=== PATIENT | male | born 1950 | race African-American/Black ===

== ENCOUNTER 2016-06-26 14:15 | Emergency (ER) | payer OTHER ==
--- NOTE | 2016-06-26 14:39 | ER Document Report ---
ED Medical Screen (RME) - General Stated Complaint: SORE ON LEFT LEG Mode of Arrival: Wheelchair Information source: Patient Notes: Patient with a sore to the lateral aspect of left lower leg for the past week. No injury. He shouldn't with swelling to left lower extremity. hx: Hypertension I have greeted and performed a rapid initial assessment of this patient. A comprehensive ED assessment and evaluation of the patient, analysis of test results and completion of the medical decision making process will be conducted by additional ED providers. TRAVEL OUTSIDE OF THE [place] IN LAST 30 DAYS: No - Related Data Allergies/Adverse Reactions: No Known Allergies Allergy (Verified 06/26/16 14:36) Past Medical History - Immunizations Hx Diphtheria, Pertussis, Tetanus Vaccination: Yes Physical Exam - Vital signs Vitals: Temp Pulse Resp BP Pulse Ox 98.7 F 112 H 16 171/105 H 96 06/26/16 14:23 06/26/16 14:23 06/26/16 14:23 06/26/16 14:23 06/26/16 14:23 - Skin Skin irregularity: other - Wound to the lateral aspect of left lower extremity Course - Vital Signs Vital signs: Temp Pulse Resp BP Pulse Ox 98.7 F 112 H 16 171/105 H 96 06/26/16 14:23 06/26/16 14:23 06/26/16 14:23 06/26/16 14:23 06/26/16 14:23
[2016-06-26 15:28] LABS: ABSOLUTE EOSINOPHILS # (AUTO) 0.1 10^3/uL (0.0-0.6); ABSOLUTE LYMPHOCYTES (AUTO) 1.4 10^3/uL (0.5-4.7); ABSOLUTE MONOCYTES (AUTO) 0.4 10^3/uL (0.1-1.4); ABSOLUTE NEUT (AUTO) 3.9 10^3/uL (1.7-8.2); BASOPHILS % (AUTO) 0.8 % (0-2); EOSINOPHILS % (AUTO) 1.4 % (0-6); HEMATOCRIT 40.7 % (37.9-51.0); HEMOGLOBIN 13.8 g/dL (13.5-17.0); HGB HCT DIFFERENCE 0.7; LYMPHOCYTES % (AUTO) 23.7 % (13-45); MEAN CORPUSCULAR HEMOGLOBIN 30.8 pg (27.0-33.4); MEAN CORPUSCULAR HGB CONC 33.9 g/dL (32.0-36.0); MEAN CORPUSCULAR VOLUME 91 fl (80-97); MONOCYTES % (AUTO) 6.3 % (3-13); RED BLOOD COUNT 4.47 10^6/uL (4.35-5.55); RED CELL DISTRIBUTION WIDTH 14.3 % (11.5-14.0); SEGMENTED NEUTROPHILS % (AUTO) 67.8 % (42-78); WHITE BLOOD COUNT 5.7 10^3/uL (4.0-10.5)
[2016-06-26 15:39] LABS: ALANINE AMINOTRANSFERASE 25 U/L (21-72); ALKALINE PHOSPHATASE 87 U/L (38-126); ANION GAP 10 (5-19); ASPARTATE AMINO TRANSFERASE 20 U/L (17-59); BILIRUBIN,TOTAL 0.5 mg/dL (0.2-1.3); BLOOD UREA NITROGEN 18 mg/dL (7-20); CALCIUM 9.7 mg/dL (8.4-10.2); CARBON DIOXIDE 30 mmol/L (22-30); CHLORIDE 103 mmol/L (98-107); CREATININE RESULT 1.21 mg/dL (0.52-1.25); GLUCOSE 134 mg/dL (75-110); POTASSIUM 4.3 mmol/L (3.6-5.0); SODIUM 142.8 mmol/L (137-145); TOTAL PROTEIN 7.4 g/dL (6.3-8.2)
--- NOTE | 2016-06-26 17:35 | ER Document Report ---
ED Extremity Problem, Lower - General Chief Complaint: Skin Sore(s) Stated Complaint: SORE ON LEFT LEG Mode of Arrival: Wheelchair Notes: Patient is a 65-year-old male presents emergency Department with left lower extremity open wound with associated lymphedema. Patient states that he has had swelling for over a year and is been going to [facility] for management. States that the wound on his leg does not hurt but is been there for the past 3 days. Past medical issues significant for hypertension denies diabetes Denies any past surgical history PCP is [facility] TRAVEL OUTSIDE OF THE [place] IN LAST 30 DAYS: No - Related Data Allergies/Adverse Reactions: No Known Allergies Allergy (Verified 06/26/16 14:36) Home Medications: Current Home Medications Losartan Potassium [Cozaar 100 mg Tablet] 100 mg PO DAILY 06/26/16 [History] Past Medical History - General Information source: Patient - Social History Smoking Status: Never Smoker Chew tobacco use (# tins/day): No Frequency of alcohol use: None Drug Abuse: None Family History: Reviewed & Not Pertinent Patient has suicidal ideation: No Patient has homicidal ideation: No - Past Medical History Cardiac Medical History: Reports: Hx Hypertension Renal/ Medical History: Denies: Hx Peritoneal Dialysis Surgical Hx: Negative - Immunizations Hx Diphtheria, Pertussis, Tetanus Vaccination: Yes Review of Systems - Review of Systems Constitutional: No symptoms reported EENT: No symptoms reported Cardiovascular: Edema Respiratory: No symptoms reported Gastrointestinal: No symptoms reported Genitourinary: No symptoms reported Male Genitourinary: No symptoms reported Musculoskeletal: See HPI Skin: See HPI Hematologic/Lymphatic: No symptoms reported Neurological/Psychological: No symptoms reported Physical Exam - Vital signs Vitals: Temp Pulse Resp BP Pulse Ox 98.7 F 112 H 16 171/105 H 96 06/26/16 14:23 06/26/16 14:23 06/26/16 14:23 06/26/16 14:23 06/26/16 14:23 - Respiratory Respiratory status: No respiratory distress Chest status: Nontender Breath sounds: Normal Chest palpation: Normal - Cardiovascular Rhythm: Regular Heart sounds: Normal auscultation Murmur: No Gallop: None auscultated Pulses: Normal: Radial Normal capillary refill: Yes - Extremities General upper extremity: Normal inspection, Normal strength General lower extremity: Nontender, Edema, Normal color, Normal strength, Normal temperature, Normal weight bearing. No: Link's sign Calf: Nontender Ankle: Edema. No: Deformity Foot: Nontender, Edema. No: Deformity - Neurological Neuro grossly intact: Yes Cognition: Normal Orientation: AAOx4 [place] Coma Scale Eye Opening: Spontaneous Toy Coma Scale Verbal: Oriented [place] Coma Scale Motor: Obeys Commands [place] Coma Scale Total: 15 Motor strength normal: LUE, RUE, LLE, RLE Sensory: Normal - Skin Skin Temperature: Hot Skin Moisture: Dry Skin Turgor: Edematous Location of irregularity: Extremities Notes: bilateral lower extremity 3 pitting edema with dry flaking skin. area on left calf with edematous, nontender, wound down to dermis without bleeding, approx Course - Re-evaluation Re-evalutation: 06/29/16 07:37 Patient is a 65-year-old male who is hemodynamically stable, no acute distress and afebrile. Evidence of chronic wound on left lateral calf is nontender no evidence of abscess. No evidence of gas production on x-ray. Discharge patient home on by mouth antibiotics and instructed to follow-up with her in clinic. - Vital Signs Vital signs: Temp Pulse Resp BP Pulse Ox 98.0 F 92 20 168/92 H 95 06/26/16 19:04 06/26/16 19:04 06/26/16 19:04 06/26/16 19:04 06/26/16 19:04 - Laboratory Result Diagrams: 06/26/16 15:00 06/26/16 15:00 Laboratory results interpreted by me: 06/26/16 06/26/16 15:00 15:00 RDW 14.3 H Glucose 134 H Discharge - Discharge Clinical Impression: Cellulitis Qualifiers: Site of cellulitis: extremity Site of cellulitis of extremity: lower extremity Laterality: left Qualified Code(s): L03.116 - Cellulitis of left lower limb Condition: Good Disposition: HOME, SELF-CARE Instructions: Use of Kten-Gdi-Ujlepfw Ibuprofen ([facility]) Additional Instructions: CELLULITIS: You have an infection of your skin and underlying soft tissues called cellulitis. This is due to bacteria, which can enter through any break in the skin, or even through an irritated hair follicle. Untreated, cellulitis will usually worsen. Antibiotics are required. Usually, warm packs or warm soaks, and elevation of the infected area are recommended. You should start getting better within 24 to 36 hours. Most infections respond quickly to the right medication. Follow-up care is important, however, to check for abscess (boil) formation, unsuspected foreign body, or resistant infection. If you develop fever, chills, or if the area of infection is becoming rapidly more swollen or painful, call the doctor at once. ANTIBIOTIC THERAPY: You have been given an antibiotic prescription. It's important that you take all the medication, unless instructed otherwise by your physician. Failure to complete the entire course can result in relapse of your condition. Common side effects of antibiotics include nausea, intestinal cramping, or diarrhea. Women may develop vaginal yeast infections, and babies can get yeast (thrush) in the mouth following the use of antibiotics. Contact your physician if you develop significant side effects from this medication. Allergy to this antibiotic can result in hives, wheezing, faintness, or itching. If symptoms of allergy occur, stop the medication and call the doctor. TRIMETHOPRIM-SULFA: You have been given a prescription for trimethoprim-sulfa (TMS, Septra, Bactrim). This is a combination antibiotic of the sulfa class, often used for urinary tract infections, middle ear infections, bronchitis, shigella intestinal infection, and Pneumocystis pneumonia. TMS is usually well-tolerated. Occasional side effects include nausea and decreased appetite. Septra is not recommended for infants less than two months of age. Do not take this medication if you have experienced severe side effects or allergy to sulfa medicine. You should stop this medicine at once and contact your physician if you develop any rash, joint pain, shortness of breath, bruising, or jaundice ( yellow color in the skin), or if you develop any other new or unusual symptoms. FOLLOW-UP CARE: If you have been referred to a physician for follow-up care, call the physician s office for an appointment as you were instructed or within the next two days. If you experience worsening or a significant change in your symptoms, notify the physician immediately or return to the Emergency Department at any time for re-evaluation. Please call the wound clinic based out of the hospital to book an appointment for this week [phone] Prescriptions: Sulfamethoxazole/Trimethoprim [Bactrim Ds Tablet] 1 each PO BID 10 Days Forms: Elevated Blood Pressure
[2016-06-26 19:14] VITALS: BP 168/92
== END 2016-06-26 19:14 | disposition home or self-care (01) ==
LOC: ER 14:15
DX: L97.221 Non-pressure chronic ulcer of left calf limited to breakdown of skin (principal); L03.116 Cellulitis of left lower limb; I89.0 Lymphedema, not elsewhere classified; I10 Essential (primary) hypertension
CPT/HCPCS: 36415; 80053; 83880; 85025; 87040; 87070; 87077; 87186; 87205; 99283

== ENCOUNTER → 2016-06-27 | Outpatient (CLI) | payer OTHER ==
--- NOTE | 2016-06-27 18:53 | XCELERA REPORT ---
[address] [address] Lower Extremity Venous Evaluation Name: ELISA VIDAL Age: 65 yrs Gender: Male : 1950 Patient Status: Outpatient Patient Location: Study Date: 06/27/2016 02:10 PM Procedure: Color flow and duplex imaging of the veins of the left lower extremity as well as the right Common Femoral vein. Reason For Study: LLE EDEMA Ordering Physician: MARIA INES MENDOZA Performed By: Andrez Baez Right Sided Venous Evaluation The right common femoral vein is fully compressible. Spontaneous and phasic flow is present in the right common femoral vein. Left Sided Venous Evaluation Normal vessel filling wall to wall, compression and augmentation as well as Colour flow down to the infrageniculate veins. Critical Findings [facility] to [facility]. Interpretation Summary No duplex evidence of DVT or obstruction in the left lower extremity nor in the right Common Femoral vein. : MARIA INES MENDOZA > Akash Booker
== END ==
LOC: SP 14:01
PROVIDERS: ATTEND Internal Medicine
DX: R60.0 Localized edema (principal)
CPT/HCPCS: 93971

== ENCOUNTER 2017-03-24 11:15 | Inpatient (IN) | payer MEDICARE, OTHER ==
[2017-03-24 12:13] LABS: ABSOLUTE LYMPHOCYTES (AUTO) 1.1 10^3/uL (0.5-4.7); ABSOLUTE MONOCYTES (AUTO) 0.4 10^3/uL (0.1-1.4); ABSOLUTE NEUT (AUTO) 2.7 10^3/uL (1.7-8.2); BASOPHILS % (AUTO) 0.6 % (0-2); EOSINOPHILS % (AUTO) 0.6 % (0-6); HEMOGLOBIN 13.7 g/dL (13.5-17.0); HGB HCT DIFFERENCE 1.1; LYMPHOCYTES % (AUTO) 25.1 % (13-45); MEAN CORPUSCULAR HEMOGLOBIN 31.4 pg (27.0-33.4); MEAN CORPUSCULAR HGB CONC 34.3 g/dL (32.0-36.0); MEAN CORPUSCULAR VOLUME 92 fl (80-97); MONOCYTES % (AUTO) 8.4 % (3-13); PROTHROMBIN TIME 14.2 SEC (11.4-15.4); RED BLOOD COUNT 4.37 10^6/uL (4.35-5.55); RED CELL DISTRIBUTION WIDTH 14.1 % (11.5-14.0); SEGMENTED NEUTROPHILS % (AUTO) 65.3 % (42-78); WHITE BLOOD COUNT 4.2 10^3/uL (4.0-10.5)
[2017-03-24 12:14] LABS: PARTIAL THROMBOPLASTIN TIME 29.7 SEC (23.5-35.8)
[2017-03-24 12:17] LABS: APPEARANCE,URINE CLEAR; BILIRUBIN,URINE NEGATIVE (NEGATIVE); GLUCOSE, URINE NEGATIVE (NEGATIVE); KETONES,URINE 20 mg/dL (NEGATIVE); LEUKOCYTE ESTERASE,URINE NEGATIVE (NEGATIVE); NITRITE,URINE NEGATIVE (NEGATIVE); PROTEIN,URINE 30 mg/dL (NEGATIVE); URINE SPECIFIC GRAVITY 1.027; UROBILINOGEN,URINE NEGATIVE mg/dL (<2.0)
--- NOTE | 2017-03-24 12:23 | RADIOLOGY REPORT (SQ) ---
EXAM DESCRIPTION: HIP BILATERAL COMPLETED DATE/TIME: 03/24/2017 12:13 pm REASON FOR STUDY: cannot bend left hip, asymmetric, ?dislocation COMPARISON: None. NUMBER OF VIEWS: Two views. TECHNIQUE: AP pelvis and additional frog-leg view of both hips. LIMITATIONS: None. FINDINGS: MINERALIZATION: Normal. RIGHT HIP: No fracture or dislocation. No worrisome bone lesions. LEFT HIP: Severe degenerative changes with joint space loss and extensive sclerosis and hypertrophic changes. Difficult to assess for acute findings. PUBIS AND ISCHIUM: No fracture. PELVIS: No fracture. SACRUM: No fracture or dislocation. No worrisome bone lesions. LOWER LUMBAR SPINE: No fracture or dislocation. No worrisome bone lesions. No significant disc disea se. SOFT TISSUES: No findings. OTHER: No other significant finding. IMPRESSION: SEVERE DEGENERATIVE CHANGES IN THE LEFT HIP. DIFFICULT TO ASSESS FOR ACUTE FINDINGS. N O OTHER SIGNIFICANT FINDINGS. TECHNICAL DOCUMENTATION: JOB ID: [id number] [employer]- All Rights Reserved
[2017-03-24 12:29] LABS: ALANINE AMINOTRANSFERASE 32 U/L (21-72); ALBUMIN 4.2 g/dL (3.5-5.0); ALKALINE PHOSPHATASE 77 U/L (38-126); ANION GAP 13 (5-19); ASPARTATE AMINO TRANSFERASE 21 U/L (17-59); BILIRUBIN,DIRECT 0.5 mg/dL (0.0-0.4); BILIRUBIN,TOTAL 0.9 mg/dL (0.2-1.3); BLOOD UREA NITROGEN 22 mg/dL (7-20); CALCIUM 9.2 mg/dL (8.4-10.2); CARBON DIOXIDE 29 mmol/L (22-30); CHLORIDE 105 mmol/L (98-107); CREATININE RESULT 1.22 mg/dL (0.52-1.25); GLUCOSE 96 mg/dL (75-110); POTASSIUM 3.9 mmol/L (3.6-5.0); SODIUM 146.6 mmol/L (137-145); TOTAL PROTEIN 7.1 g/dL (6.3-8.2)
--- NOTE | 2017-03-24 12:40 | ER Document Report ---
ED General - General Mode of Arrival: Ambulatory Information source: Patient TRAVEL OUTSIDE OF THE [place] IN LAST 30 DAYS: No - HPI Onset: Yesterday <PHILLIP PUGA - Last Filed: 03/24/17 18:32> <RON GIL - Last Filed: 03/24/17 18:36> - General Chief Complaint: Weakness Stated Complaint: WEAKNESS Time Seen by Provider: 03/24/17 11:19 Notes: Patient is a 66 year old male with a extensive history of left leg issues presents to the emergency department via EMS complaining of sudden onset immobility last night after sitting in a chair watching TV. Patient states that he was unable to stand up from the chair and unable to bend at the waist. Patient denies any fall or injury. Patient states that he also has no pain. Patient normally walks with a walker due to his left leg being shorter and skinnier than his right. (PHILLIP PUGA) - Related Data Allergies/Adverse Reactions: No Known Allergies Allergy (Verified 06/26/16 14:36) Home Medications: Current Home Medications Furosemide [Lasix 20 mg Tablet] 20 mg PO QAM 03/24/17 [History] Losartan Potassium [Cozaar 100 mg Tablet] 100 mg PO DAILY 03/24/17 [History] Past Medical History - General Information source: Patient, Emergency Med Personnel - Social History Smoking Status: Never Smoker Chew tobacco use (# tins/day): No Frequency of alcohol use: None Drug Abuse: None Family History: Reviewed & Not Pertinent Patient has suicidal ideation: No Patient has homicidal ideation: No - Past Medical History Cardiac Medical History: Reports: Hx Hypertension - no meds - Immunizations Hx Diphtheria, Pertussis, Tetanus Vaccination: Yes <PHILLIP PUGA - Last Filed: 03/24/17 18:32> Review of Systems - Review of Systems Constitutional: No symptoms reported EENT: No symptoms reported Cardiovascular: No symptoms reported Respiratory: No symptoms reported Gastrointestinal: No symptoms reported Genitourinary: No symptoms reported Male Genitourinary: No symptoms reported Musculoskeletal: Muscle stiffness - immbobility at the hips Skin: No symptoms reported Hematologic/Lymphatic: No symptoms reported Neurological/Psychological: No symptoms reported -: Yes All other systems reviewed and negative <PHILLIP PUGA - Last Filed: 03/24/17 18:32> Physical Exam <PHILLIP PUGA - Last Filed: 03/24/17 18:32> <RON GIL - Last Filed: 03/24/17 18:36> - Vital signs Vitals: Temp Pulse Resp BP Pulse Ox 98.7 F 98 18 197/106 H 100 03/24/17 11:21 03/24/17 11:21 03/24/17 11:21 03/24/17 11:21 03/24/17 11:21 - Notes Notes: GENERAL: Alert, interacts well. No acute distress. HEAD: Normocephalic, atraumatic. EYES: Pupils equal, round, and reactive to light. Extraocular movements intact. ENT: Oral mucosa moist, tongue midline. NECK: Full range of motion. Supple. Trachea midline. LUNGS: Clear to auscultation bilaterally, no wheezes, rales, or rhonchi. No respiratory distress. HEART: Regular rate and rhythm. No murmurs, gallops, or rubs. ABDOMEN: Soft, non-tender. Non-distended. Bowel sounds present in all 4 quadrants. EXTREMITIES: Restricted ROM at left hip, not at right, can not passively flex hip more than 30 degrees. Left greater trochanter more prominent than right. No edema, radial and dorsalis pedis pulses 2/4 bilaterally. No cyanosis. Intact capillary refill. Left leg atrophy. Toenails hypertrophic. NEUROLOGICAL: Alert and oriented x3. Speech difficult to understand but normal baseline for relatives. Biceps and patellar DTRs 2+ bilaterally. Pulses and sensations intact. PSYCH: Normal affect, normal mood. SKIN: Warm, dry, normal turgor. No rashes or lesions noted. BACK: Lumbar and thoracic able to flex without difficulty. (PHILLIP PUGA) Course - Laboratory Result Diagrams: 03/24/17 11:52 03/24/17 11:52 <PHILLIP PUGA - Last Filed: 03/24/17 18:32> - Laboratory Result Diagrams: 03/24/17 11:52 03/24/17 11:52 <RON GIL - Last Filed: 03/24/17 18:36> - Re-evaluation Re-evalutation: 03/24/17 14:50 CBC unremarkable, INR slightly prolonged at 1.03, CMP grossly unremarkable, urinalysis shows 30 of protein and 20 of ketones, otherwise unremarkable, hip x- ray shows severe degenerative changes and the radiologist is unable to fully rule out any acute process, lower extremity CT of the left hip reveals severe degenerative changes no acute fracture visualized. I did discuss this case with Dr. Renner, states that it is possible to have an close joint or arthritis that is so severe that the patient can no longer move his left hip. Discussed that the treatment for this is a hip replacement, Dr. Renner has agreed to admit this patient to the orthopedic service and recommends consulting the hospitalist for medical clearance. I did attempt to call the hospitalist at this time however they were not available to communicate the consult to them. Discussed with family and patient and they are both agreeable to admission for possible hip replacement. 03/24/17 14:55 I did communicate this consult to Dr. Comer who directed me to give it to krishna the nurse practitioner. (RON GIL) - Vital Signs Vital signs: Temp Pulse Resp BP Pulse Ox 98.2 F 98 18 150/108 H 100 03/24/17 16:10 03/24/17 16:10 03/24/17 16:10 03/24/17 16:10 03/24/17 16:10 - Laboratory Laboratory results interpreted by me: 03/24/17 03/24/17 03/24/17 11:52 11:52 12:00 RDW 14.1 H Sodium 146.6 H BUN 22 H Direct Bilirubin 0.5 H Urine Protein 30 H Urine Ketones 20 H - EKG Interpretation by Me Additional EKG results interpreted by me: 03/24/17 14:55 EKG shows sinus rhythm at a rate of 93, several PACs, left axis deviation, no ST segment elevations or depressions, T-wave inversions in 1 and aVL per my interpretation. (RON GIL) Discharge <PHILLIP PUGA - Last Filed: 03/24/17 18:32> - Discharge Admitting Provider: Surgicalist - Jud Unit Admitted: Surgical Floor <RON GIL - Last Filed: 03/24/17 18:36> - Discharge Clinical Impression: Inability to ambulate due to left hip, Benign essential hypertension Condition: Stable Disposition: ADMITTED INPATIENT Scribe Attestation: 03/24/17 18:36 I personally performed the services described in the documentation, reviewed and edited the documentation which was dictated to the scribe in my presence, and it accurately records my words and actions. (RON GIL) Scribe Documentation - Scribe Written by Darren:: Darren Galan, 03/24/2017 13:01 acting as scribe for :: Abran <PHILLIP PUGA - Last Filed: 03/24/17 18:32>
--- NOTE | 2017-03-24 13:48 | RADIOLOGY REPORT (SQ) ---
EXAM DESCRIPTION: CT LT LOWER EXTREMITY WITHOUT COMPLETED DATE/TIME: 03/24/2017 1:38 pm REASON FOR STUDY: cannot move left hip, ?fx COMPARISON: None. TECHNIQUE: CT scan of the left hip performed without intravenous or oral contrast. Images reviewed with soft tissue and bone windows. Reconstructed coronal and sagittal MPR images reviewed. All imag es stored on PACS. All CT scanners at this facility use dose modulation, iterative reconstruction, and/or weight based d osing when appropriate to reduce radiation dose to as low as reasonably achievable (ALARA). [facility]: Dose Right [facility]: CareDose [facility]: Dose Right [facility]: Teradose 4D [facility]: Smart Microinox RADIATION DOSE: Up-to-date CT equipment and radiation dose reduction techniques were employed. CTDIv ol: 11.8 mGy. DLP: 466 mGy-cm. mGy. LIMITATIONS: None. FINDINGS: PELVIC BONES: No acute fracture. No worrisome bone lesions. VISUALIZED SPINE: No acute findings. HIP: Severe degenerative changes. Marked joint space loss with extensive sclerosis and extensive ost eophytes. Extensive cystic changes. Marked deformity of the femoral head and neck. No cortical dis continuity. PELVIC SOFT TISSUES: No significant findings. EXTRAPELVIC SOFT TISSUES: No significant findings. OTHER: No other significant finding. IMPRESSION: SEVERE DEGENERATIVE CHANGES OF THE LEFT HIP. NO ACUTE FRACTURE VISUALIZED. TECHNICAL DOCUMENTATION: JOB ID: [id number] Quality ID # [id number]: Final reports with documentation of one or more dose reduction techniques (e.g., Au tomated exposure control, adjustment of the mA and/or kV according to patient size, use of iterative reconstruction technique) 2010 [employer]- All Rights Reserved
[2017-03-24] MEDS ORDERED: DEXTROSE 40% GEL 15 GM TUBE PO PRN ×2 (16:54)
[2017-03-24] MEDS ORDERED: GLUCAGON,HUMAN RECOMB 1 MG INJ SUBCUT PRN (16:54)
[2017-03-24] MEDS ORDERED: DEXTROSE 50%-WATER 25 GM/50 ML DISP.SYRIN IV PRN ×2 (16:54)
[2017-03-24] MEDS ORDERED: INFLUENZA ADLT QUAD (36MOS+) 2017-18 VAC 0.5 ML SYR IM PRN (17:10)
--- NOTE | 2017-03-24 17:26 | PDOC CONSULTATION ---
Consultation Consult Date: 03/24/17 Attending physician:: NOBLE DUKE History of Present Illness Admission Date/PCP: 03/24/17 15:03 patient seen he was admitted from the ER by Dr. Renner due to inability to move and ambulate on his left leg. Patient is accompanied by his daughter who states patient was doing fine yesterday and he has been having issues with his leg for a long time but yesterday he was unable to move and ambulate so he came to the emergency room today. Apparently patient's baseline he has slurred speech and significant amount of weakness and he walks with a walker. Patient states his right hip just froze up on him all of a sudden he is unable to walk. Patient states he has had some numbness and tingling down his left arm and and right hip and has chronic arthritis. We were asked to see the patient for preop clearance and medical management. Upon my assessment patient gave me 2 bottles of medication both were which were losartan and furosemide. Suspect patient has medical noncompliance as stated by patient' s daughter. Patient denies having a primary care physician. Patient complains of: right hip pain History of Present Illness: ELISA VIDAL is a 66 year old male patient seen he was admitted from the ER by Dr. Renner due to inability to move and ambulate on his left leg. Patient is accompanied by his daughter who states patient was doing fine yesterday and he has been having issues with his leg for a long time but yesterday he was unable to move and ambulate so he came to the emergency room today. Apparently patient's baseline he has slurred speech and significant amount of weakness and he walks with a walker. Patient states his right hip just froze up on him all of a sudden he is unable to walk. Patient states he has had some numbness and tingling down his left arm and and right hip and has chronic arthritis. We were asked to see the patient for preop clearance and medical management. Upon my assessment patient gave me 2 bottles of medication both were which were losartan and furosemide. Suspect patient has medical noncompliance as stated by patient's daughter. Patient denies having a primary care physician or has an outpatient orthopedic physician. Per patient's medical records he has had a history of nonhealing wound. No evidence of open wound during his physical assessment today. Past Medical History Cardiac Medical History: Reports: Congestive Heart Failure - Patient denies but he has a Rx for Lasix, Hypertension - has meds for Losartan and Lasix both bottles . Musculoskeletal History Note: right hip pain unable to move. Was getting up with walker independently at home. Social History Smoking Status: Never Smoker Family History Family History: Reviewed & Not Pertinent Parental Family History Reviewed: Yes Children Family History Reviewed: No Sibling(s) Family History Reviewed.: No Medication/Allergy Home Medications: Furosemide [Lasix 20 mg Tablet] 20 mg PO QAM 03/24/17 Losartan Potassium [Cozaar 100 mg Tablet] 100 mg PO DAILY 03/24/17 Allergies/Adverse Reactions: No Known Allergies Allergy (Verified 06/26/16 14:36) Review of Systems Constitutional: ABSENT: chills, fever(s), headache(s), weight gain, weight loss Eyes: ABSENT: visual disturbances Ears: ABSENT: hearing changes Cardiovascular: ABSENT: chest pain, dyspnea on exertion, edema, orthropnea, palpitations Respiratory: ABSENT: cough, hemoptysis Gastrointestinal: ABSENT: abdominal pain, constipation, diarrhea, hematemesis, hematochezia, nausea, vomiting Genitourinary: ABSENT: dysuria, hematuria Musculoskeletal: PRESENT: as per HPI Integumentary: ABSENT: rash, wounds Neurological: ABSENT: abnormal gait, abnormal speech, confusion, dizziness, focal weakness, syncope Psychiatric: ABSENT: anxiety, depression, homidical ideation, suicidal ideation Endocrine: ABSENT: cold intolerance, heat intolerance, polydipsia, polyuria Hematologic/Lymphatic: ABSENT: easy bleeding, easy bruising Physical Exam Vital Signs: Temp Pulse Resp BP Pulse Ox 98.7 F 98 19 177/94 H 99 03/24/17 11:21 03/24/17 11:21 03/24/17 15:30 03/24/17 15:30 03/24/17 15:30 General appearance: PRESENT: no acute distress, well-developed, well-nourished Head exam: PRESENT: atraumatic, normocephalic Eye exam: PRESENT: conjunctiva pink, EOMI, PERRLA. ABSENT: scleral icterus Ear exam: PRESENT: normal external ear exam Mouth exam: PRESENT: moist, tongue midline Neck exam: ABSENT: carotid bruit, JVD, lymphadenopathy, thyromegaly Respiratory exam: PRESENT: clear to auscultation ketty. ABSENT: rales, rhonchi, wheezes Cardiovascular exam: PRESENT: RRR. ABSENT: diastolic murmur, rubs, systolic murmur Pulses: PRESENT: normal dorsalis pedis pul, other - Very faint pedal pulses Vascular exam: PRESENT: normal capillary refill GI/Abdominal exam: PRESENT: normal bowel sounds, soft. ABSENT: distended, guarding, mass, organolmegaly, rebound, tenderness Rectal exam: PRESENT: deferred Extremities exam: PRESENT: full ROM. ABSENT: calf tenderness, clubbing, pedal edema Musculoskeletal exam: ABSENT: ambulatory, deformity, dislocation, full ROM, normal inspection Neurological exam: PRESENT: alert, awake, oriented to person, oriented to place , oriented to time, CN II-XII grossly intact, other - slurred speech. ABSENT: oriented to situation, motor sensory deficit Psychiatric exam: PRESENT: appropriate affect, normal mood. ABSENT: homicidal ideation, suicidal ideation Skin exam: PRESENT: dry, intact, warm. ABSENT: cyanosis, rash Results Impressions: Hip X-Ray 03/24/17 11:27 IMPRESSION: SEVERE DEGENERATIVE CHANGES IN THE LEFT HIP. DIFFICULT TO ASSESS FOR ACUTE FINDINGS. NO OTHER SIGNIFICANT FINDINGS. Lower Extremity CT 03/24/17 12:38 IMPRESSION: SEVERE DEGENERATIVE CHANGES OF THE LEFT HIP. NO ACUTE FRACTURE VISUALIZED. Assessment & Plan - Diagnosis (1) Benign essential hypertension Plan: Patient was seen blood pressure was 180/88 suspect medical noncompliance with blood pressure medication. Seems to be a high risk stratification for acute CVA. So will go ahead and obtain a head CT to rule out an acute CVA. (2) CHF (congestive heart failure) Qualifiers: Congestive heart failure type: unspecified congestive heart failure type Is this a current diagnosis for this admission?: Yes Plan: Suspect patient has history of CHF due to patient's old medical records and chart however patient's not been very compliant with medication. Denies any shortness of breath dyspnea with exertion (3) Non compliance with medical treatment Is this a current diagnosis for this admission?: Yes Plan: Suspect medical noncompliance due to patient has 2 prescriptions losartan and furosemide both bottles were out of date. Daughter states he does not have a primary care physician and does not go to the doctor regular that is the reason why he is here now. (4) Pre-operative clearance Is this a current diagnosis for this admission?: Yes Plan: Suspect patient may have high risk stratification for surgery at this time due to suspected medical noncompliance adherence with treatment and outpatient care. Will obtain a 2D echo, troponins, hemoglobin A1c, head CT rule out acute CVA due to his dysphasia sudden inability to ambulate. Patient seems quite comfortable not having any medications. Only pain medication she takes at home or BC powders for his chronic arthritis. In my opinion suspect patient has not failed outpatient therapy for his rheumatoid arthritis due to not on any pain medications but he does have significant degenerative joint changes indicative of needing a hip replacement. Unsure if patient's received any kind of therapy outpatient. Will obtain cardiology and pulmonology consult for clearance preop as well.
[2017-03-24 17:33] LABS: CHOLESTEROL 148.73 mg/dL (0-200); CREATINE KINASE 224 U/L (55-170); Direct HDL 50 mg/dL (>40); TRIGLYCERIDES 52 mg/dL (<150)
[2017-03-24 17:44] LABS: DIRECT LDL 84 mg/dL (<100)
[2017-03-24 18:00] LABS: CREATINE KINASE MB 2.59 ng/mL (<4.55)
[2017-03-24 18:02] LABS: TROPONIN I < 0.012 ng/mL
--- NOTE | 2017-03-24 18:02 | RADIOLOGY REPORT (SQ) ---
EXAM DESCRIPTION: CT HEAD WITHOUT COMPLETED DATE/TIME: 03/24/2017 5:32 pm REASON FOR STUDY: r/o cva COMPARISON: None. TECHNIQUE: Axial images acquired through the brain without intravenous contrast. Images reviewed wi th bone, brain and subdural windows. Images stored on PACS. All CT scanners at this facility use dose modulation, iterative reconstruction, and/or weight based d osing when appropriate to reduce radiation dose to as low as reasonably achievable (ALARA). [facility]: Dose Right [facility]: CareDose [facility]: Dose Right [facility]: Teradose 4D [facility]: Smart Let[place]ano RADIATION DOSE: Up-to-date CT equipment and radiation dose reduction techniques were employed. CTDIv ol: 49.0 mGy. DLP: 881 mGy-cm. mGy. LIMITATIONS: None. FINDINGS: VENTRICLES: Prominent. CEREBRUM: No masses. No hemorrhage. No midline shift. Areas of low density in the white matter mos t likely due to chronic micro-vascular ischemic change. No evidence for acute infarction. CEREBELLUM: No masses. No hemorrhage. No alteration of density. No evidence for acute infarction. EXTRAAXIAL SPACES: Mild age-related involutional change. No fluid collections. No masses. ORBITS AND GLOBE: No intra- or extraconal masses. Normal contour of globe without masses. CALVARIUM: No fracture. PARANASAL SINUSES: No fluid or mucosal thickening. SOFT TISSUES: No mass or hematoma. OTHER: No other significant finding. IMPRESSION: MILD CHRONIC CHANGES OF ATROPHY AND MICROVASCULAR ISCHEMIA. NO ACUTE PROCESS. EVIDENCE OF ACUTE STROKE: NO. TECHNICAL DOCUMENTATION: JOB ID: [id number] Quality ID # [id number]: Final reports with documentation of one or more dose reduction techniques (e.g., Au tomated exposure control, adjustment of the mA and/or kV according to patient size, use of iterative reconstruction technique) 2010 [employer]- All Rights Reserved
--- NOTE | 2017-03-24 19:37 | PDOC CONSULTATION ---
Consultation Consult Date: 03/24/17 Attending physician:: JAMAAL NEVAREZ Consult reason:: Preop evaluation History of Present Illness Admission Date/PCP: 03/24/17 15:03 Patient complains of: Ambulatory dysfunction History of Present Illness: ELISA VIDAL is a 66 year old male patient seen he was admitted from the ER by Dr. Renner due to inability to move and ambulate on his left leg. Patient is accompanied by his daughter who states patient was doing fine yesterday and he has been having issues with his leg for a long time but yesterday he was unable to move and ambulate so he came to the emergency room today. Apparently patient's baseline he has slurred speech and significant amount of weakness and he walks with a walker. Patient states his right hip just froze up on him all of a sudden he is unable to walk. Patient states he has had some numbness and tingling down his left arm and and right hip and has chronic arthritis. We were asked to see the patient for preop clearance and medical management. Upon my assessment patient gave me 2 bottles of medication both were which were losartan and furosemide. Suspect patient has medical noncompliance as stated by patient's daughter. Patient denies having a primary care physician or has an outpatient orthopedic physician. Per patient's medical records he has had a history of nonhealing wound. No evidence of open wound during his physical assessment today. Patient was interviewed. He denied having any chest pain or any significant shortness of breath. Nurses report to me that the daughter was in and informed them that he was able to walk up and down the stairs until recently, just about 2 days ago. He denied any previous history of myocardial infarction or any other heart problems Past Medical History Cardiac Medical History: Reports: Congestive Heart Failure - Patient denies but he has a Rx for Lasix, Hypertension - no meds Social History Information Source: Patient Smoking Status: Never Smoker Drugs: None - Advance Directive Resuscitation Status: Full Code Surrogate healthcare decision maker:: Patient's daughter is the surrogate decision-maker Family History Family History: Reviewed & Not Pertinent Parental Family History Reviewed: Yes Children Family History Reviewed: Yes Sibling(s) Family History Reviewed.: Yes Medication/Allergy Home Medications: Furosemide [Lasix 20 mg Tablet] 20 mg PO QAM 03/24/17 Losartan Potassium [Cozaar 100 mg Tablet] 100 mg PO DAILY 03/24/17 Allergies/Adverse Reactions: No Known Allergies Allergy (Verified 06/26/16 14:36) Review of Systems Review of Systems: Please see history of present illness and past medical history as wall. Constitutional: No fever or chills reported. Head : No recent chronic headaches, recent head injury. Eyes: No recent eye pain, diplopia, redness, discharge, acute visual changes. Ears: No recent chronic ear pain, acute hearing loss, ear discharge. Oral cavity: No recent ulcerations, bleeding, oral cavity discomfort. Neck: No recent acute neck pain reported. Hematologic: No recent easy bruising or bleeding or hematologic malignancy reported. Lymphatic: No recent lymphatic malignancy, chronic lymphadenopathy reported yet Cardiovascular system review: See history of present illness. Respiratory system review: No recent chronic cough, hemoptysis, blood clots in the lungs reported. Gastrointestinal system review: Negative for any recent acute or chronic abdominal pain, hematemesis, melena, recent change in bowel habits. Genitourinary system review: No recent acute or chronic hematuria, flank pain, UTI etc. reported. Skin system review: Negative for any recent abnormal bruising, no rash, no pruritus reported. Neurologic: No prior history of strokes, mini strokes, seizure disorder. Psychologic: No history of major psychosis or major depression reported. Musculoskeletal: Minor aches and pains reported. No acute joint swelling reported. Ambulatory dysfunction as noted in HPI. Endocrine: No recent polyuria, polydipsia, recent heat or cold intolerance. Physical Exam Vital Signs: Temp Pulse Resp BP Pulse Ox 98.2 F 98 18 150/108 H 100 03/24/17 16:10 03/24/17 16:10 03/24/17 16:10 03/24/17 16:10 03/24/17 16:10 Exam: GENERAL: well-nourished and in no acute distress. Alert and oriented x3 HEAD: Atraumatic, normocephalic. EYES: Pupils equal round and reactive to light, extraocular movements intact, sclera anicteric, conjunctiva are normal. ENT: TMs normal, nares patent, oropharynx clear without exudates. Moist mucous membranes. No oral ulcerations or bleeding gums noted NECK: supple without lymphadenopathy. Trachea is central. No cervical or axillary lymphadenopathy noted. Carotids are 2+, JVD WNL LUNGS: Respiration seems nonlabored, no significant accessory muscle action noted. Breath sounds clear to auscultation bilaterally and equal noted. No wheezes rales or rhonchi noted. No significant dullness noted on percussion. CHEST: Palpation of the chest wall shows no significant chest wall tenderness. No other significant abnormalities noted. 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 ABDOMEN: Soft, no significant tenderness appreciated, normoactive bowel sounds. No guarding, no rebound. No rigidity noted . No masses appreciated. EXTREMITIES: Pedal pulses are 1-2+, no calf tenderness noted. No clubbing or cyanosis.trace to 1+ pedal edema noted NEUROLOGICAL: Focused neurological exam showed no significant neurologic deficit. His speech is slurred and somewhat garbled, mild upper right extremity weakness appreciated. PSYCH: Normal mood, normal affect. Judgment and insight could not be checked because of limited verbal communication. SKIN: No significant ecchymosis, rash, ulcerations or signs of pruritus noted. MUSCULOSKELETAL EXAM: No significant joint swelling noted. Patient noted to have some difficulty with mobility of the left lower extremity Results Laboratory Results: 03/24/17 16:55 Triglycerides 52 Cholesterol 148.73 LDL Cholesterol Direct 84 VLDL Cholesterol 10.0 HDL Cholesterol 50 03/24/17 03/24/17 16:55 16:55 Creatine Kinase 224 H CK-MB (CK-2) 2.59 Troponin I < 0.012 EKG Comments: Sinus rhythm with APCs but no acute ST-T wave changes Impressions: Head CT 03/24/17 00:00 IMPRESSION: MILD CHRONIC CHANGES OF ATROPHY AND MICROVASCULAR ISCHEMIA. NO ACUTE PROCESS. EVIDENCE OF ACUTE STROKE: NO. Hip X-Ray 03/24/17 11:27 IMPRESSION: SEVERE DEGENERATIVE CHANGES IN THE LEFT HIP. DIFFICULT TO ASSESS FOR ACUTE FINDINGS. NO OTHER SIGNIFICANT FINDINGS. Lower Extremity CT 03/24/17 12:38 IMPRESSION: SEVERE DEGENERATIVE CHANGES OF THE LEFT HIP. NO ACUTE FRACTURE VISUALIZED. Assessment & Plan - Diagnosis (1) Pre-operative clearance Is this a current diagnosis for this admission?: Yes (2) Benign essential hypertension Is this a current diagnosis for this admission?: Yes (3) CHF (congestive heart failure) Qualifiers: Congestive heart failure type: unspecified congestive heart failure type Congestive heart failure chronicity: chronic Qualified Code(s): I50.9 - Heart failure, unspecified Is this a current diagnosis for this admission?: No (4) Inability to ambulate due to left hip Is this a current diagnosis for this admission?: Yes (5) Non compliance with medical treatment Is this a current diagnosis for this admission?: Yes - Notes Notes: Preop cardiac clearance: Patient seems comfortable. There is no history of chest pain. No significant shortness of breath reported. Patient in sinus rhythm, no clinical CHF but will obtain a chest x-ray. Patient cleared for proposed surgery with average risk for his age. Hypertension: Recommend good control of blood pressure and restarting his on home antihypertensives. CHF: Does not seem to be a problem. There is questionable history of this. Have obtained a chest x-ray. Will order a echocardiogram in the morning. Inability to ambulate.: Patient has significant osteoarthritis of the left hip. Possibly would benefit from hip replacement but will leave this decision to orthopedic surgeon. Medical noncompliance: Patient may need to see capacity planner for him to get some home health etc. - Time Time Spent: 30 to 50 Minutes - More than 50% of the time spent coordinating care , discussing management plans with involved caregivers. Management plans discussed with involved personnels. Medical decision making was of moderate to high complexity, patient's has multiple comorbidities. Medications reviewed and adjusted accordingly: Yes
--- NOTE | 2017-03-24 20:15 | RADIOLOGY REPORT (SQ) ---
EXAM DESCRIPTION: CHEST SINGLE VIEW COMPLETED DATE/TIME: 03/24/2017 8:04 pm REASON FOR STUDY: Preop, history of CHF COMPARISON: Chest x-ray dated January 2016 EXAM PARAMETERS: NUMBER OF VIEWS: One view. TECHNIQUE: Single frontal radiographic view of the chest acquired. RADIATION DOSE: NA LIMITATIONS: None. FINDINGS: LUNGS AND PLEURA: No opacities, masses or pneumothorax. No pleural effusion. MEDIASTINUM AND HILAR STRUCTURES: No masses. Contour normal. HEART AND VASCULAR STRUCTURES: The configuration of the heart mediastinal structures is unchanged BONES: No acute findings. HARDWARE: None in the chest. OTHER: No other significant finding. IMPRESSION: NO ACUTE RADIOGRAPHIC FINDING IN THE CHEST. TECHNICAL DOCUMENTATION: JOB ID: [id number] [employer]- All Rights Reserved
[2017-03-24] MEDS: RIVAROXABAN 10 MG TABLET PO SCH (21:09)
--- NOTE | 2017-03-25 07:11 | PDOC H&P ---
History of Present Illness Admission Date/PCP: 03/24/17 15:03 Patient complains of: Inability to bear weight on his left lower extremity History of Present Illness: Patient is a 56-year-old black male with a long-standing history of leg length inequality and progressive pain and functional disability secondary to left hip osteoarthritis. Patient is now admitted through the emergency room because he is unable to weight-bear in the left lower extremity. Past Medical History Cardiac Medical History: Reports: Congestive Heart Failure - Patient denies but he has a Rx for Lasix, Hypertension - no meds Past Surgical History Past Surgical History: Reports: None Social History Lives with: Family Smoking Status: Never Smoker Drugs: None - Advance Directive Resuscitation Status: Full Code Family History Family History: Reviewed & Not Pertinent Parental Family History Reviewed: No Children Family History Reviewed: No Sibling(s) Family History Reviewed.: No Medication/Allergy Home Medications: Furosemide [Lasix 20 mg Tablet] 20 mg PO QAM 03/24/17 Losartan Potassium [Cozaar 100 mg Tablet] 100 mg PO DAILY 03/24/17 Allergies/Adverse Reactions: No Known Allergies Allergy (Verified 06/26/16 14:36) Review of Systems All systems: as per [facility] Physical Exam Vital Signs: Temp Pulse Resp BP Pulse Ox 36.9 C 82 16 166/97 H 100 03/24/17 23:21 03/24/17 23:21 03/24/17 23:21 03/24/17 23:21 03/24/17 23:21 Intake & Output 03/24/17 03/25/17 03/26/17 06:59 06:59 06:59 Intake Total 370 Output Total 150 Balance 220 General appearance: PRESENT: mild distress Head exam: PRESENT: normocephalic Respiratory exam: PRESENT: unlabored Cardiovascular exam: PRESENT: RRR Pulses: PRESENT: +1 pedal pulses bilateral Vascular exam: PRESENT: normal capillary refill GI/Abdominal exam: PRESENT: soft Rectal exam: PRESENT: deferred Extremities exam: PRESENT: other - Left lower extremity shortened. Passive range of motion of the hip is painful. Distal neurovascular examination is intact. Neurological exam: PRESENT: alert, awake, oriented to person, oriented to place , oriented to time, oriented to situation, other - Slurred speech. ABSENT: motor sensory deficit Psychiatric exam: PRESENT: appropriate affect, normal mood. ABSENT: homicidal ideation, suicidal ideation Skin exam: PRESENT: dry, intact, warm. ABSENT: cyanosis, rash Results Laboratory Results: 03/24/17 16:55 Triglycerides 52 Cholesterol 148.73 LDL Cholesterol Direct 84 VLDL Cholesterol 10.0 HDL Cholesterol 50 03/24/17 03/24/17 16:55 16:55 Creatine Kinase 224 H CK-MB (CK-2) 2.59 Troponin I < 0.012 Impressions: Head CT 03/24/17 00:00 IMPRESSION: MILD CHRONIC CHANGES OF ATROPHY AND MICROVASCULAR ISCHEMIA. NO ACUTE PROCESS. EVIDENCE OF ACUTE STROKE: NO. Hip X-Ray 03/24/17 11:27 IMPRESSION: SEVERE DEGENERATIVE CHANGES IN THE LEFT HIP. DIFFICULT TO ASSESS FOR ACUTE FINDINGS. NO OTHER SIGNIFICANT FINDINGS. Lower Extremity CT 03/24/17 12:38 IMPRESSION: SEVERE DEGENERATIVE CHANGES OF THE LEFT HIP. NO ACUTE FRACTURE VISUALIZED. Chest X-Ray 03/24/17 19:33 IMPRESSION: NO ACUTE RADIOGRAPHIC FINDING IN THE CHEST. Status: Imported from PACS Assessment & Plan - Diagnosis (1) Inability to ambulate due to left hip Is this a current diagnosis for this admission?: Yes Plan: 66-year-old black male with progressive left hip pain and functional disability secondary to presumed arthritis. There is questionable involvement of an inflammatory arthropathy although no evidence radiographically of other joints being involved. Laboratory studies have been ordered for this morning to rule out underlying septic arthritis although the patient does not have any constitutional symptoms. He has obtained cardiac clearance already and pending the blood studies this morning we will proceed with left hip arthroplasty under choice anesthesia. The risks and benefits of surgery were discussed with the patient. The residual leg length inequality is expected. - Time Time Spent: 50 to 70 Minutes Anticipated discharge: SNF Within: Other
[2017-03-25 07:26] LABS: ABSOLUTE EOSINOPHILS # (AUTO) 0.1 10^3/uL (0.0-0.6); ABSOLUTE MONOCYTES (AUTO) 0.6 10^3/uL (0.1-1.4); ABSOLUTE NEUT (AUTO) 3.4 10^3/uL (1.7-8.2); BASOPHILS % (AUTO) 0.6 % (0-2); EOSINOPHILS % (AUTO) 2.2 % (0-6); HEMATOCRIT 40.3 % (37.9-51.0); HEMOGLOBIN 13.6 g/dL (13.5-17.0); HGB HCT DIFFERENCE 0.5; LYMPHOCYTES % (AUTO) 32.8 % (13-45); MEAN CORPUSCULAR HEMOGLOBIN 31.3 pg (27.0-33.4); MEAN CORPUSCULAR HGB CONC 33.8 g/dL (32.0-36.0); MEAN CORPUSCULAR VOLUME 93 fl (80-97); MONOCYTES % (AUTO) 9.9 % (3-13); RED BLOOD COUNT 4.34 10^6/uL (4.35-5.55); RED CELL DISTRIBUTION WIDTH 14.1 % (11.5-14.0); SEGMENTED NEUTROPHILS % (AUTO) 54.5 % (42-78); WHITE BLOOD COUNT 6.2 10^3/uL (4.0-10.5)
[2017-03-25 07:40] LABS: ALANINE AMINOTRANSFERASE 34 U/L (21-72); ALBUMIN 3.9 g/dL (3.5-5.0); ALKALINE PHOSPHATASE 68 U/L (38-126); ANION GAP 13 (5-19); ASPARTATE AMINO TRANSFERASE 29 U/L (17-59); BILIRUBIN,DIRECT 0.3 mg/dL (0.0-0.4); BILIRUBIN,TOTAL 0.9 mg/dL (0.2-1.3); BLOOD UREA NITROGEN 22 mg/dL (7-20); CALCIUM 8.8 mg/dL (8.4-10.2); CARBON DIOXIDE 26 mmol/L (22-30); CHLORIDE 106 mmol/L (98-107); CREATININE RESULT 1.12 mg/dL (0.52-1.25); GLUCOSE 75 mg/dL (75-110); POTASSIUM 3.9 mmol/L (3.6-5.0); SODIUM 144.7 mmol/L (137-145); TOTAL PROTEIN 6.4 g/dL (6.3-8.2)
[2017-03-25] MEDS ORDERED: VANCOMYCIN HCL 1,000 MG in DEXTROSE 5%-WATER 250 ML IV PRN (07:48)
[2017-03-25] MEDS ORDERED: TRANEXAMIC ACID INJ/PF 1,000 MG/10 ML SDV IV PRN (07:48)
[2017-03-25] MEDS: MORPHINE SULFATE 10 MG/ML INJ IV PRN ×2 (08:54→17:56)
--- NOTE | 2017-03-25 09:17 | EKG REPORT ---
SEVERITY:- ABNORMAL ECG - SINUS RHYTHM ATRIAL PREMATURE COMPLEX NONSPECIFIC T ABNORMALITIES, LATERAL LEADS : Confirmed by: Usama José 25-Mar-2017 09:16:57
--- NOTE | 2017-03-25 09:17 | EKG REPORT ---
SEVERITY:- BORDERLINE ECG - SINUS RHYTHM ATRIAL PREMATURE COMPLEX BORDERLINE T WAVE ABNORMALITIES : Confirmed by: Usama José 25-Mar-2017 09:16:29
[2017-03-25] MEDS ORDERED: ENALAPRILAT DIHYDRATE INJ/PF 2.5 MG/2 ML SDV IV PRN (10:07)
--- NOTE | 2017-03-25 10:37 | PDOC CONSULTATION ---
Consultation Consult Date: 03/25/17 Attending physician:: JAMAAL NEVAREZ Consult reason:: Preoperative evaluation History of Present Illness Admission Date/PCP: 03/24/17 15:03 History of Present Illness: Patient is a 56-year-old black male With what appears to be at least a partial expressive aphasiaPresented to the emergency room unable to walk this occurred acute on chronically as he had been using a walker but it had been ambulating with increasing difficulty until today when he could not ambulate at all. He denies shortness of breath with dips and exertion certainly his ability to exert himself is limited he does admit to occasional wheezing he denies a cough or hemoptysis PPD status is unknown he denies history of chronic lung disease as a child or adolescent he admits to exposure to passive smoke as a child as well as an adult he states that he smoked in the past but was not specific as to how much how long. He has no pets and denies any recent travel. He denies angina-like chest pain sleeps on 2 pillows occasional PND occasional nocturnal cough and frequent edema. He is unaware of any snoring restless sleep. He has multiple episodes of nocturia at night he has unrestful sleep as well as excessive daytime somnolence Past Medical History Cardiac Medical History: Reports: Congestive Heart Failure - Patient denies but he has a Rx for Lasix, Hypertension - no meds EENT Medical History: Denies: Eyes, Throat Neurological Medical History: Denies: Multiple Sclerosis Endocrine Medical History: Denies: Obesity Renal/ Medical History: Denies: Nephrolithiasis Malignancy Medical History: Reports: None GI Medical History: Denies: Cirrhosis, Crohn's Disease, Diverticulitis, Ulcerative Colitis Musculoskeltal Medical History: Denies: Gout Skin Medical History: Denies: Eczema, Psoriasis Traumatic Medical History: Denies: Gunshot Wound, Pneumothorax Hematology: Denies: Hemophilia, Sickle Cell Disease, Bleeding Tendencies Infectious Medical History: Denies: Hepatitis B, Hepatitis C Past Surgical History Past Surgical History: Reports: None Social History Information Source: Patient, [facility] Records Lives with: Family Smoking Status: Former Smoker Passive smoke exposure as: Both Frequency of Alcohol Use: None Hx Recreational Drug Use: No Drugs: None Hx Prescription Drug Abuse: No Do you have pets?: No Have you had any respiratory illnesses as a child?: No Have you been exposed to any sick contacts recently?: No Have you had any recent respiratory illnesses?: No Have you travelled outside of [place] in the past 12 months?: No - Advance Directive Resuscitation Status: Full Code Family History Family History: Hypertension, Malignancy. denies: Reviewed & Not Pertinent Parental Family History Reviewed: Yes Children Family History Reviewed: Yes Sibling(s) Family History Reviewed.: Yes Medication/Allergy Home Medications: Furosemide [Lasix 20 mg Tablet] 20 mg PO QAM 03/24/17 Losartan Potassium [Cozaar 100 mg Tablet] 100 mg PO DAILY 03/24/17 Allergies/Adverse Reactions: No Known Allergies Allergy (Verified 06/26/16 14:36) Review of Systems Constitutional: PRESENT: fatigue, weakness. ABSENT: anorexia Eyes: ABSENT: visual disturbances Ears: PRESENT: hearing changes Nose, Mouth, and Throat: ABSENT: mouth pain, sore throat Cardiovascular: ABSENT: chest pain, dyspnea on exertion, palpitations Respiratory: ABSENT: hemoptysis Gastrointestinal: PRESENT: constipation, dysphagia. ABSENT: abdominal pain, bloating, coffee ground emesis, diarrhea, heartburn, hematemesis, hematochezia Genitourinary: PRESENT: difficulty urinating, nocturia. ABSENT: dysuria, hematuria Musculoskeletal: PRESENT: back pain Integumentary: ABSENT: diaphoresis, erythema, pruritus Neurological: PRESENT: abnormal gait, abnormal movements, abnormal speech, lack of coordination, weakness Psychiatric: ABSENT: anxiety, depression, homidical ideation, suicidal ideation Endocrine: PRESENT: flushing, menstrual abnormalities, polydipsia Hematologic/Lymphatic: PRESENT: easy bleeding. ABSENT: easy bruising Physical Exam Vital Signs: Temp Pulse Resp BP Pulse Ox 98.4 F 82 16 166/97 H 100 03/25/17 09:41 03/25/17 09:41 03/25/17 09:41 03/25/17 09:41 03/25/17 09:41 Intake & Output 03/24/17 03/25/17 03/26/17 06:59 06:59 06:59 Intake Total 370 Output Total 150 Balance 220 General appearance: PRESENT: no acute distress, cooperative, disheveled, thin Exam: Very hard of hearing Head exam: PRESENT: atraumatic, normocephalic Eye exam: PRESENT: conjunctiva pale, EOMI Mouth exam: PRESENT: dry mucosa, neck supple Neck exam: ABSENT: carotid bruit, JVD, lymphadenopathy, thyromegaly Respiratory exam: PRESENT: clear to auscultation ketty. ABSENT: rales, rhonchi, wheezes Cardiovascular exam: PRESENT: RRR, +S1, +S2, systolic murmur Pulses: PRESENT: normal radial pulses GI/Abdominal exam: PRESENT: normal bowel sounds, soft. ABSENT: distended, guarding, mass, organolmegaly, rebound, tenderness Gentrourinary exam: PRESENT: indwelling catheter Extremities exam: PRESENT: joint swelling, tenderness. ABSENT: calf tenderness , clubbing Musculoskeletal exam: PRESENT: deformity. ABSENT: ambulatory, tenderness Neurological exam: PRESENT: alert, awake Psychiatric exam: PRESENT: normal mood Skin exam: PRESENT: dry, warm Results Laboratory Results: 03/25/17 05:27 03/25/17 05:27 03/24/17 03/25/17 03/25/17 16:55 05:27 05:27 WBC 6.2 RBC 4.34 L Hgb 13.6 Hct 40.3 MCV 93 MCH 31.3 MCHC 33.8 RDW 14.1 H Plt Count 197 Seg Neutrophils % 54.5 Lymphocytes % 32.8 Monocytes % 9.9 Eosinophils % 2.2 Basophils % 0.6 Absolute Neutrophils 3.4 Absolute Lymphocytes 2.0 Absolute Monocytes 0.6 Absolute Eosinophils 0.1 Absolute Basophils 0.0 Sodium 144.7 Potassium 3.9 Chloride 106 Carbon Dioxide 26 Anion Gap 13 BUN 22 H Creatinine 1.12 Est GFR ( Amer) > 60 Est GFR (Non-Af Amer) > 60 Glucose 75 Calcium 8.8 Total Bilirubin 0.9 AST 29 ALT 34 Alkaline Phosphatase 68 C-Reactive Protein Total Protein 6.4 Albumin 3.9 Triglycerides 52 Cholesterol 148.73 LDL Cholesterol Direct 84 VLDL Cholesterol 10.0 HDL Cholesterol 50 03/25/17 05:27 WBC RBC Hgb Hct MCV MCH MCHC RDW Plt Count Seg Neutrophils % Lymphocytes % Monocytes % Eosinophils % Basophils % Absolute Neutrophils Absolute Lymphocytes Absolute Monocytes Absolute Eosinophils Absolute Basophils Sodium Potassium Chloride Carbon Dioxide Anion Gap BUN Creatinine Est GFR ( Amer) Est GFR (Non-Af Amer) Glucose Calcium Total Bilirubin AST ALT Alkaline Phosphatase C-Reactive Protein < 5.0 Total Protein Albumin Triglycerides Cholesterol LDL Cholesterol Direct VLDL Cholesterol HDL Cholesterol 03/24/17 03/24/17 16:55 16:55 Creatine Kinase 224 H CK-MB (CK-2) 2.59 Troponin I < 0.012 Impressions: Head CT 03/24/17 00:00 IMPRESSION: MILD CHRONIC CHANGES OF ATROPHY AND MICROVASCULAR ISCHEMIA. NO ACUTE PROCESS. EVIDENCE OF ACUTE STROKE: NO. Hip X-Ray 03/24/17 11:27 IMPRESSION: SEVERE DEGENERATIVE CHANGES IN THE LEFT HIP. DIFFICULT TO ASSESS FOR ACUTE FINDINGS. NO OTHER SIGNIFICANT FINDINGS. Lower Extremity CT 03/24/17 12:38 IMPRESSION: SEVERE DEGENERATIVE CHANGES OF THE LEFT HIP. NO ACUTE FRACTURE VISUALIZED. Chest X-Ray 03/24/17 19:33 IMPRESSION: NO ACUTE RADIOGRAPHIC FINDING IN THE CHEST. Assessment & Plan - Diagnosis (1) Benign essential hypertension Is this a current diagnosis for this admission?: Yes Plan: Stable at this time but patient is not compliant with medical therapy (2) CHF (congestive heart failure) Qualifiers: Congestive heart failure type: unspecified congestive heart failure type Is this a current diagnosis for this admission?: Yes Plan: stable at this time (3) Pre-operative clearance Is this a current diagnosis for this admission?: Yes Plan: Accumulating accurate and complete information difficult no family at bedside physical examination does not imply that there would be any difficulty with surgical intervention ideally a bedside spirometry will be obtained but I do not believe patient could be compliant with instructions
--- NOTE | 2017-03-25 10:52 | PROGRESS NOTE E ---
Progress Note NAME: ELISA VIDAL : 1950 AGE: 66Y DATE: 03/25/2017 ROOM: 436 SUBJECTIVE: The patient is currently lying in bed. He is going to go to the OR today with Dr. Brown. The patient denies any nausea, vomiting, or diarrhea. No shortness of breath, dizziness, or chest pain. No fever or chills. The patient has been afebrile. His blood pressures still remain elevated, and the patient does not voice any other concerns at this time. REVIEW OF SYSTEMS: Rest of the review of systems negative. MEDICATIONS: Have been reviewed. OBJECTIVE: GENERAL: The patient is a 66-year-old -[place] male who is awake, alert, and oriented to person, place, time, and situation. He is verbal, conversational, and does not appear to be in any acute distress. VITAL SIGNS: Temperature 98.4, pulse 82, respirations 16, blood pressure 166/97, oxygen saturation is 100% on room air. SKIN: Warm and dry. No rash. Not diaphoretic. HEENT: Pupils equal, round, reactive to light and accommodation. The patient does have garbled speech which is his baseline. There is no evidence of JVP. CARDIOVASCULAR: Heart is regular. He has no rub. CHEST: Clear, symmetrical, unlabored. ABDOMEN: Soft, nontender, nondistended. BACK: No CVA tenderness or sacral edema. EXTREMITIES: No clubbing, cyanosis, or edema. PSYCHIATRIC: Appropriate affect. Pleasant mood. DIAGNOSTICS: Lab values are as follow: Hematology obtained on 03/25/2017: WBCs are 6.2, hemoglobin is 13.6, hematocrit is 40.3, platelet count is 197,000. Chemistry obtained on 03/25/2017: Sodium is 144, potassium 3.9, chloride is 106, carbon dioxide 26, BUN 22, creatinine is 1.12, glucose 75, calcium 8.8, bilirubin is 0.9, AST 29, ALT is 34, alk phos 68, total protein 6.4, albumin 3.9. IMPRESSION AND PLAN: 1. UNCONTROLLED HYPERTENSION. Will resume the patient's Cozaar and add p.r.n. coverage with Vasotec and follow. 2. INABILITY TO AMBULATE DUE TO LEFT HIP. The patient is scheduled to OR with Dr. Brown today. The patient is in the process of preop clearance with Cardiology. 3. POSSIBLE CHRONIC CHF. The patient does have a history of Lasix, however, it appears this has . The patient will be seen by Cardiology. Echo will be done for further classification. The patient appears optivolemic at this point. 4. GARBLED SPEECH. This has been chronic for the patient, therefore, presume there is cerebrovascular accident. Will start the patient on baby aspirin. DISPOSITION: The patient is a FULL CODE. Pending patient's symptomatology and diagnostic findings, will reevaluate in the a.m. Time spent on this followup including assessment, plan, physical examination, patient education, and specialty collaboration is 25 minutes. DICTATING PHYSICIAN: ARACELY HWANG NP [id number] PHY#: [id number] ID: [id number] JOB#: [id number] ACCT: [id number] cc: >
--- NOTE | 2017-03-25 14:31 | Physician Advisory Note ---
Physician Advisor ProgressNote .: [facility] have reviewed [facility] medical record for this patient. Physician Advisor Statement: Attending, please document the following, if you agree, to confirm pt meets medical necessity requirements for total hip arthroplasty coverage by Medicare - especially the points that are bolded: 1. "Severe DJD Lt hip, evidenced by: severe joint space narrowing to the point it is bone on bone, extensive osteophytes, & extensive cystic changes by X-ray & CT" 2. "Pain in joint and disability due to severe DJD deformity preventing pt from doing ADLs including standing to cook, squatting, climbing stairs, ..." - "pain in joint at rest is __/10; "pain with weight bearing [attempt] is __/10; "pain with activity [attempt] is __/10". 3. "Nonsurgical medical management would be ineffective or counterproductive, and the best tx is surgical, because of: bone on bone articulation, + pain & significant disabling interference with ADLs." 4. Explicit exam findings for pt: deformity details, joint tenderness details , amount of limited AROM in flexion & extension. 5. How long has pt been using a walker for the DJD? (Was the leg length discrepancy due to the DJD, or was it a pre-existing problem?) Any other conservative measures used up until now? For how long? 6. "Safety issues for this patient include instability, higher risk of falls, becoming bed-bound if surgical correction is not done." Points already made in the documentation for this pt pre-op: Attending has already documented "progressive pain and functional disability due to Lt hip OA", and "inability to weight-bear on LLE" due to severe DJD, interfering with and now preventing walking. Pt had been able to walk until 2 days ago, now acutely unable to bear weight or walk at all, due to joint locking up due to severity of DJD. Attending has documented pain with passive ROM of Lt hip on exam. CT reports "marked deformity of femoral head & neck". Per last greaser, pt has been using a walker chronically, but with increasing difficulty w/ambulation due to Lt hip. Per ED dr note, pt has restricted ROM Lt hip, unable to passively flex hip > 30 degrees. Also deformity: L greater trochanter more prominent than Rt. Status: 66yo Medicare pt with severe DJD, chronic leg length discrepancy, HTN, possible chronic ___ type CHF, previously able to walk by himself with walker, though with increasing difficulty, now DJD progressed so far that he is unable to walk at all or weight-bear, interfering with multiple ADLs. Per documentation of ED dr, attending reports the tx for this is surgical. If we waited for him to try non-surgical options for 3mo before surgery, he would just become more deconditioned and less likely to be able to rehab after surgery, and would be highly likely to end up bed-bound for the rest of his life. If his hip will simply not do adequate ROM now, PT can do no good for him, & neither can flexibility & muscle strengthening exercises. He appears to have a high tolerance for pain, but his hip just can't continue to function due to the severity of his bone on bone DJD, for which this only appropriate tx is surgical. He has already spent 1 MN in hospital as evaluations have been done determining the problem & best tx, & evaluating to optimize him for surgery given suspected co-morbidities (especially CHF can be problematic dario-operatively). He will certainly need a 2nd MN in hospital for the planned surgery (which for now is still an Inpatient Only Procedure), & for close monitoring post-op due to the underlying conditions. CK
[2017-03-25] MEDS: RIVAROXABAN 10 MG TABLET PO SCH (22:20)
[2017-03-26] MEDS ORDERED: RINGERS SOLUTION,LACTATED 1,000 ML IV PRN (00:01)
[2017-03-26 06:17] LABS: HEMATOCRIT 41.2 % (37.9-51.0); HEMOGLOBIN 13.9 g/dL (13.5-17.0); HGB HCT DIFFERENCE 0.5; MEAN CORPUSCULAR HEMOGLOBIN 31.3 pg (27.0-33.4); MEAN CORPUSCULAR HGB CONC 33.9 g/dL (32.0-36.0); MEAN CORPUSCULAR VOLUME 92 fl (80-97); RED BLOOD COUNT 4.46 10^6/uL (4.35-5.55); RED CELL DISTRIBUTION WIDTH 14.1 % (11.5-14.0); WHITE BLOOD COUNT 6.3 10^3/uL (4.0-10.5)
[2017-03-26 06:48] LABS: ANION GAP 12 (5-19); BLOOD UREA NITROGEN 26 mg/dL (7-20); CALCIUM 9.1 mg/dL (8.4-10.2); CARBON DIOXIDE 28 mmol/L (22-30); CHLORIDE 106 mmol/L (98-107); CREATININE RESULT 1.27 mg/dL (0.52-1.25); GLUCOSE 106 mg/dL (75-110); POTASSIUM 4.1 mmol/L (3.6-5.0); SODIUM 146.3 mmol/L (137-145)
[2017-03-26] MEDS ORDERED: NORMAL SALINE 1000 ML 1,000 ML IV PRN (07:58)
--- NOTE | 2017-03-26 09:50 | PROGRESS NOTE E ---
Progress Note NAME: ELISA VIDAL : 1950 AGE: 66Y DATE: 03/25/2017 ROOM: 436 SUBJECTIVE: The patient complains of pain in the left hip and hence, his blood pressure is slightly high. He does seem to have a speech impediment but does answer questions appropriately. He denies any chest pain or discomfort. There is no PND or orthopnea. There is no leg edema. OBJECTIVE: On examination, the patient is slightly overweight but in no acute distress. He is well groomed. VITAL SIGNS: Temperature is 97.9 degrees Fahrenheit, pulse is 73 beats per minute, blood pressure is 168/83, respirations are 13 per minute, O2 sats are 99.2% on room air. HEAD: Atraumatic, normocephalic. EYES: Pupils are equal, round, regular, reactive to light and accommodation. Extraocular movements are normal. There is no conjunctival pallor. There is no scleral icterus. ENT: Negative. NECK: Supple. There is no JVD. Carotids are equal. There is no bruit. There is no goiter. Trachea is central. LUNGS: Clear to auscultation and percussion. There is no chest wall tenderness. HEART: S1 and S2 are heard. There is no S3 gallop. There is no S4 gallop. There is a systolic murmur in the left sternal border and the apex. There is no rub. ABDOMEN: Soft, nontender. There is no hepatosplenomegaly. Bowel sounds are well heard. EXTREMITIES: Femorals are diminished. Leg pulses are diminished. There is tenderness in the left hip but no swelling. There is no pedal edema. There is no DVT or cellulitis. There is no calf tenderness. 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 PSYCHIATRIC: The patient's judgement and insight are intact. His affect seems to be normal. Most likely the patient will have surgery tomorrow on his left hip. Note that the patient had . There is no pericardial effusion. White count 6,200, hemoglobin 13.6, hematocrit 40.3, platelet count 197,000. Sodium 144.7, potassium 3.9, chloride 106, CO2 26, BUN 22, creatinine 1.12, GFR greater than 60. Liver function tests are normal. C-reactive protein is less than 5. Yesterday his troponin I was negative at less than 0.012. IMPRESSION: 1. for preoperative cardiac risk assessment for left hip surgery. 2. Hypertension. The patient's blood pressure is slightly elevated most likely due to hip pain. 3. Congestive heart failure, most likely diastolic dysfunction. At present, seems to be compensated. 4. Inability to ambulate due to left hip problem. 5. Noncompliance with treatment as per history. RECOMMENDATIONS: 1. We will continue his current medications including Xarelto, morphine, losartan, aspirin, and Vasotec 2.5 mg q.6 h. p.r.n. 2. He will get the flu vaccine on the day of discharge. 3. Medications have been reviewed. Continue the current medication. 4. The patient seems to be an acceptable risk for the surgery. Postoperatively we will get serial EKGs and enzymes. NOTE: Thirty minutes spent on this patient, with more than 50% of the time spent on direct patient care. His medications were reviewed. The patient's medical decision making was a moderate complexity. Dr. José will follow the patient in the a.m. DICTATING PHYSICIAN: JUWAN SPENCER M.D. [id number] JB#: [id number] ID: [id number] JOB#: [id number] ACCT: [id number] cc: >
[2017-03-26] MEDS: ASPIRIN 81 MG TABLET, CHEWABLE PO SCH (10:39)
[2017-03-26] MEDS: LOSARTAN POTASSIUM 50 MG TABLET PO SCH (10:39)
--- NOTE | 2017-03-26 11:03 | PDOC PROGRESS REPORT ---
Subjective Progress Note for:: 03/26/17 Subjective:: Pt is seen on morning rounds resting in bed comfortably. He reports continued left hip pain radiating down his left leg that is worsened by movements. His surgery was delayed yesterday and is now scheduled for tomorrow. He states that his pain is well controlled with current pain medications and he is optimistic about being ambulatory again following surgery. He reports that he has required a wheelchair for several months. He denies robles, dizziness, chest pain, palpitations, dyspnea, orthopnea, and cough. He has no questions or concerns today. Physical Exam Vital Signs: Temp Pulse Resp BP Pulse Ox 97.9 F 87 20 175/99 H 99 03/25/17 23:12 03/25/17 23:12 03/25/17 23:12 03/25/17 23:12 03/25/17 23:12 Intake & Output 03/25/17 03/26/17 03/27/17 06:59 06:59 06:59 Intake Total 370 243 Output Total 150 250 Balance 220 -7 General appearance: PRESENT: no acute distress, well-developed, well-nourished, other - overweight Head exam: PRESENT: atraumatic, normocephalic Eye exam: PRESENT: conjunctiva pink, EOMI, PERRLA. ABSENT: scleral icterus Ear exam: PRESENT: normal external ear exam Mouth exam: PRESENT: moist, tongue midline Neck exam: ABSENT: carotid bruit, JVD, lymphadenopathy, thyromegaly Respiratory exam: PRESENT: clear to auscultation ketty, symmetrical, unlabored. ABSENT: rales, rhonchi, wheezes Cardiovascular exam: PRESENT: RRR. ABSENT: diastolic murmur, rubs, systolic murmur Pulses: PRESENT: normal dorsalis pedis pul Vascular exam: PRESENT: normal capillary refill GI/Abdominal exam: PRESENT: normal bowel sounds, soft. ABSENT: distended, guarding, mass, organolmegaly, rebound, tenderness Rectal exam: PRESENT: deferred Extremities exam: ABSENT: calf tenderness, clubbing, full ROM - Lt lower extremity ROM limited 2/2 pain, pedal edema Musculoskeletal exam: PRESENT: normal inspection. ABSENT: ambulatory Neurological exam: PRESENT: alert, awake, oriented to person, oriented to place , oriented to time, oriented to situation, CN II-XII grossly intact, other - Garbled speech, does answer questions appropriately.. ABSENT: motor sensory deficit Psychiatric exam: PRESENT: appropriate affect, normal mood. ABSENT: homicidal ideation, suicidal ideation Skin exam: PRESENT: dry, intact, warm. ABSENT: cyanosis, rash Results Laboratory Results: 03/26/17 05:46 03/26/17 05:46 03/26/17 03/26/17 05:46 05:46 WBC 6.3 RBC 4.46 Hgb 13.9 Hct 41.2 MCV 92 MCH 31.3 MCHC 33.9 RDW 14.1 H Plt Count 187 Sodium 146.3 H Potassium 4.1 Chloride 106 Carbon Dioxide 28 Anion Gap 12 BUN 26 H Creatinine 1.27 H Est GFR ( Amer) > 60 Est GFR (Non-Af Amer) 57 L Glucose 106 Calcium 9.1 03/24/17 03/24/17 16:55 16:55 Creatine Kinase 224 H CK-MB (CK-2) 2.59 Troponin I < 0.012 Impressions: Head CT 03/24/17 00:00 IMPRESSION: MILD CHRONIC CHANGES OF ATROPHY AND MICROVASCULAR ISCHEMIA. NO ACUTE PROCESS. EVIDENCE OF ACUTE STROKE: NO. Hip X-Ray 03/24/17 11:27 IMPRESSION: SEVERE DEGENERATIVE CHANGES IN THE LEFT HIP. DIFFICULT TO ASSESS FOR ACUTE FINDINGS. NO OTHER SIGNIFICANT FINDINGS. Lower Extremity CT 03/24/17 12:38 IMPRESSION: SEVERE DEGENERATIVE CHANGES OF THE LEFT HIP. NO ACUTE FRACTURE VISUALIZED. Chest X-Ray 03/24/17 19:33 IMPRESSION: NO ACUTE RADIOGRAPHIC FINDING IN THE CHEST. Assessment & Plan - Diagnosis (1) Uncontrolled hypertension Is this a current diagnosis for this admission?: Yes Plan: 1- Continue Losartan 2- Vasotec q 6 h prn 3- Cardiac diet 4- Appreciate Cardiology's recommendations (2) SHEYLA (acute kidney injury) Is this a current diagnosis for this admission?: Yes Plan: Creatinine elevated to 1.27 today from baseline of 1.1. Pt has been intermittently npo for preop. Will start IVF and monitor. (3) CHF (congestive heart failure) Qualifiers: Congestive heart failure type: unspecified congestive heart failure type Congestive heart failure chronicity: chronic Qualified Code(s): I50.9 - Heart failure, unspecified Is this a current diagnosis for this admission?: Yes Plan: Pt appears compensated; euvolemic and without orthopnea/dyspnea. Will monitor daily weights as he is now receiving gentle IVF hydration. Pt has required diuretics in the past. 1- Echocardiogram results pending 2- Cardiology following 3- Cardiac diet/daily weights (4) Inability to ambulate due to left hip Is this a current diagnosis for this admission?: Yes Plan: Pt scheduled to go to OR with Dr. Brown tomorrow; has received preoperative clearance from Pulmonology and Cardiology. 1- Morphine 2mg q4 hr prn (5) Pre-operative clearance Is this a current diagnosis for this admission?: Yes (6) Speech abnormality Qualifiers: Speech disturbance type: unspecified speech disturbance Qualified Code(s): R47.9 - Unspecified speech disturbances Is this a current diagnosis for this admission?: Yes Plan: Chronic; presumed to be r/t previous CVA. Pt now on ASA and Lipitor. - Time Time Spent with patient: 25-34 minutes Medications reviewed and adjusted accordingly: Yes
[2017-03-26] MEDS ORDERED: ATORVASTATIN CALCIUM 10 MG TABLET PO ONE ×2 (12:00→16:45)
--- NOTE | 2017-03-26 13:54 | XCELERA REPORT ---
[address] [address] Transthoracic Echocardiogram Report Name: ELISA VIDAL Age: 66 yrs Gender: Male : 1950 Patient Status: Inpatient Patient Location: [address] [place] [address] Study Date: 03/25/2017 02:27 PM Height: 64 in Weight: 172 lb BSA: 1.8 m2 Procedure: A complete two-dimensional transthoracic echocardiogram was performed (2D, M-mode, spectral and color flow Doppler). The study was technically difficult with many images being suboptimal in quality. Reason For Study: History of CHF Ordering Physician: USAMA BLAND Performed By: Manuela Tapia Interpretation Summary The left ventricular ejection fraction is normal. There is mild concentric left ventricular hypertrophy. Doppler measurements suggest pseudonormalized left ventricular relaxation, which is associated with grade II/IV or mild to moderate diastolic dysfunction The left ventricle is grossly normal size. Wall motion cannot be accurately commented on, but no definite regional wall motion abnormalities noted. The right ventricular systolic function is normal. The right atrium is normal. The left atrial size is normal. There is a trace amount of mitral regurgitation There is no mitral valve stenosis. There is a trace amount of aortic regurgitation There is no aortic valve stenosis No tricuspid regurgitation. There is no tricuspid stenosis. The aortic root is not well visualized. The inferior vena cava was not well visualized There is no pericardial effusion. The study was technically difficult with many images being suboptimal in quality. MMode/2D Measurements & Calculations IVSd: 1.3 cm LVIDd: 3.5 cm FS: 25.5 % Ao root diam: 2.9 cm LVIDs: 2.6 cm EDV(Teich): 52.6 ml LVPWd: 1.3 cm ESV(Teich): 25.7 ml Ao root area: 6.7 cm2 EF(Teich): 51.2 % LA dimension: 2.3 cm Doppler Measurements & Calculations MV E max hanna: MV P1/2t max hanna: Ao V2 max: LV V1 max P.6 cm/sec 70.6 cm/sec 147.4 cm/sec 3.7 mmHg MV A max hanna: MV P1/2t: 79.4 msec Ao max PG: LV V1 max: 92.8 cm/sec 8.7 mmHg 96.3 cm/sec MV E/A: 0.76 MVA(P1/2t): 2.8 cm2 MV dec slope: 260.3 cm/sec2 Left Ventricle The left ventricle is grossly normal size. There is mild concentric left ventricular hypertrophy. The left ventricular ejection fraction is normal. Doppler measurements suggest pseudonormalized left ventricular relaxation, which is associated with grade II/IV or mild to moderate diastolic dysfunction. Wall motion cannot be accurately commented on, but no definite regional wall motion abnormalities noted. Right Ventricle The right ventricle is grossly normal size. There is mild right ventricular hypertrophy. The right ventricular systolic function is normal. Atria The right atrium is normal. The left atrial size is normal. Mitral Valve The mitral valve leaflets are sclerotic, but show no functional abnormalities. There is no mitral valve stenosis. There is a trace amount of mitral regurgitation. Aortic Valve The aortic valve is grossly normal. There is no aortic valve stenosis. There is a trace amount of aortic regurgitation. Tricuspid Valve The tricuspid valve is not well visualized secondary to technical limitations. There is no tricuspid stenosis. No tricuspid regurgitation. Pulmonic Valve The pulmonic valve is not well visualized. Great Vessels The aortic root is not well visualized. The inferior vena cava was not well visualized. Effusions There is no pericardial effusion. : USAMA BLAND > Usama Bland
[2017-03-26] MEDS: MORPHINE SULFATE 10 MG/ML INJ IV PRN ×2 (17:24→23:48)
--- NOTE | 2017-03-26 19:46 | PDOC PROGRESS REPORT ---
Subjective Progress Note for:: 03/26/17 Subjective:: Patient denies any new complaints. He is basically the same. 2D echo results reviewed. 2D echo results reviewed Physical Exam Vital Signs: Temp Pulse Resp BP Pulse Ox 99.0 F 78 18 152/88 H 97 03/26/17 12:31 03/26/17 12:31 03/26/17 12:31 03/26/17 12:31 03/26/17 12:31 Intake & Output 03/25/17 03/26/17 03/27/17 06:59 06:59 06:59 Intake Total 370 243 960 Output Total 150 250 600 Balance 220 -7 360 Exam: GENERAL: well-nourished and in no acute distress. Alert and oriented x3 HEAD: Atraumatic, normocephalic. EYES: Pupils equal round and reactive to light, extraocular movements intact, sclera anicteric, conjunctiva are normal. ENT: TMs normal, nares patent, oropharynx clear without exudates. Moist mucous membranes. No oral ulcerations or bleeding gums noted NECK: supple without lymphadenopathy. Trachea is central. No cervical or axillary lymphadenopathy noted. Carotids are 2+, JVD WNL LUNGS: Respiration seems nonlabored, no significant accessory muscle action noted. Breath sounds clear to auscultation bilaterally and equal noted. No wheezes rales or rhonchi noted. No significant dullness noted on percussion. CHEST: Palpation of the chest wall shows no significant chest wall tenderness. No other significant abnormalities noted. 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 ABDOMEN: Soft, no significant tenderness appreciated, normoactive bowel sounds. No guarding, no rebound. No rigidity noted . No masses appreciated. EXTREMITIES: Pedal pulses are 1-2+, no calf tenderness noted. No clubbing or cyanosis.trace to 1+ pedal edema noted NEUROLOGICAL: Focused neurological exam showed no significant neurologic deficit. His speech is slurred and somewhat garbled, mild upper right extremity weakness appreciated. PSYCH: Normal mood, normal affect. Judgment and insight could not be checked because of limited verbal communication. SKIN: No significant ecchymosis, rash, ulcerations or signs of pruritus noted. MUSCULOSKELETAL EXAM: No significant joint swelling noted. Patient noted to have some difficulty with mobility of the left lower extremity Results Laboratory Results: 03/26/17 05:46 03/26/17 05:46 03/26/17 03/26/17 05:46 05:46 WBC 6.3 RBC 4.46 Hgb 13.9 Hct 41.2 MCV 92 MCH 31.3 MCHC 33.9 RDW 14.1 H Plt Count 187 Sodium 146.3 H Potassium 4.1 Chloride 106 Carbon Dioxide 28 Anion Gap 12 BUN 26 H Creatinine 1.27 H Est GFR ( Amer) > 60 Est GFR (Non-Af Amer) 57 L Glucose 106 Calcium 9.1 03/24/17 03/24/17 16:55 16:55 Creatine Kinase 224 H CK-MB (CK-2) 2.59 Troponin I < 0.012 Impressions: Head CT 03/24/17 00:00 IMPRESSION: MILD CHRONIC CHANGES OF ATROPHY AND MICROVASCULAR ISCHEMIA. NO ACUTE PROCESS. EVIDENCE OF ACUTE STROKE: NO. Hip X-Ray 03/24/17 11:27 IMPRESSION: SEVERE DEGENERATIVE CHANGES IN THE LEFT HIP. DIFFICULT TO ASSESS FOR ACUTE FINDINGS. NO OTHER SIGNIFICANT FINDINGS. Lower Extremity CT 03/24/17 12:38 IMPRESSION: SEVERE DEGENERATIVE CHANGES OF THE LEFT HIP. NO ACUTE FRACTURE VISUALIZED. Chest X-Ray 03/24/17 19:33 IMPRESSION: NO ACUTE RADIOGRAPHIC FINDING IN THE CHEST. Assessment & Plan - Diagnosis (1) Pre-operative clearance Is this a current diagnosis for this admission?: Yes (2) Benign essential hypertension Is this a current diagnosis for this admission?: Yes (3) CHF (congestive heart failure) Qualifiers: Congestive heart failure type: unspecified congestive heart failure type Congestive heart failure chronicity: chronic Qualified Code(s): I50.9 - Heart failure, unspecified Is this a current diagnosis for this admission?: Yes (4) Inability to ambulate due to left hip Is this a current diagnosis for this admission?: Yes (5) Non compliance with medical treatment Is this a current diagnosis for this admission?: Yes - Notes Notes: Based on my review of 2D echo and also patient being comfortable without any significant distress, patient is cleared for surgery. Hypertension is well controlled. CHF seems compensated. Patient has a history of CHF. Ambulatory dysfunction: Possibly will improve after surgery. History of cerebrovascular accident with residual defect: Currently is stable. Patient stable to undergo hip surgery. - Time Time with patient: 15-25 minutes - More than 50% of the time spent coordinating care, discussing management plans with involved caregivers. Management plans discussed with involved personnels. Medical decision making was of moderate to high complexity, patient's has multiple comorbidities.
[2017-03-27] MEDS ORDERED: VANCOMYCIN HCL 1,000 MG in DEXTROSE 5%-WATER 250 ML IV PRN (05:00)
[2017-03-27] MEDS ORDERED: TRANEXAMIC ACID INJ/PF 1,000 MG/10 ML SDV IV PRN (05:00)
[2017-03-27 06:17] LABS: HEMATOCRIT 39.4 % (37.9-51.0); HEMOGLOBIN 13.4 g/dL (13.5-17.0); HGB HCT DIFFERENCE 0.8; MEAN CORPUSCULAR HEMOGLOBIN 31.8 pg (27.0-33.4); MEAN CORPUSCULAR HGB CONC 34.1 g/dL (32.0-36.0); MEAN CORPUSCULAR VOLUME 93 fl (80-97); RED BLOOD COUNT 4.22 10^6/uL (4.35-5.55); RED CELL DISTRIBUTION WIDTH 14.4 % (11.5-14.0)
[2017-03-27] MEDS ORDERED: MIDAZOLAM 2 MG/2 ML INJ ONE (06:48)
[2017-03-27] MEDS ORDERED: FENTANYL CITRATE INJ/PF 100 MCG/2 ML AMPUL ONE (06:48)
[2017-03-27] MEDS ORDERED: ONDANSETRON HCL INJ/PF 4 MG/2 ML SDV ONE (06:48)
[2017-03-27] MEDS ORDERED: PROPOFOL INJ 200 MG/20 ML VIAL IV ONE (06:48)
[2017-03-27 06:49] LABS: ANION GAP 12 (5-19); BLOOD UREA NITROGEN 28 mg/dL (7-20); CALCIUM 8.7 mg/dL (8.4-10.2); CARBON DIOXIDE 28 mmol/L (22-30); CHLORIDE 106 mmol/L (98-107); CREATININE RESULT 1.25 mg/dL (0.52-1.25); GLUCOSE 95 mg/dL (75-110); POTASSIUM 4.2 mmol/L (3.6-5.0); SODIUM 145.9 mmol/L (137-145)
[2017-03-27] MEDS ORDERED: TRANEXAMIC ACID INJ/PF 1,000 MG/10 ML SDV IV ONE ×3 (06:49→11:44)
[2017-03-27] MEDS ORDERED: ACETAMINOPHEN 100 ML IV ONE ×2 (07:48→16:28)
[2017-03-27] MEDS: THROMBIN (BOVINE) 5000 UNIT EPITAXIS KIT ONE ×2 (07:50→08:37)
[2017-03-27] MEDS: THROMBIN (BOVINE) TOPICAL 20000 UNIT VIAL ONE ×2 (07:51→08:37)
[2017-03-27] MEDS: BUPIVACAINE INJ/PF LIPOSOME/PF 266 MG/20 ML SDV ONE ×2 (07:52→08:37)
[2017-03-27] MEDS ORDERED: DIPHENHYDRAMINE HCL 50 MG/ML VIAL IV PRN ×2 (08:48→10:28)
[2017-03-27] MEDS ORDERED: FENTANYL CITRATE INJ/PF 100 MCG/2 ML AMPUL IV PRN ×2 (08:48)
--- NOTE | 2017-03-27 10:19 | Operative Report ---
Operative Report DATE OF SURGERY: 03/27/17 PREOPERATIVE DIAGNOSIS: Left hip arthritis OPERATION: Left hip arthroplasty SURGEON: MORENO JACQUES 1ST PLUSH DRESSER: TIA LAINEZ ANESTHESIA: Spinal TISSUE REMOVED OR ALTERED: Bone to pathology ESTIMATED BLOOD LOSS: 150 PROCEDURE: Implants used: Femur: Kulwinder modular orthodoxy 17 x 55 mm stem, 19 mm proximal body, 36 mm chrome cobalt head +5 neck extension Acetabular shell: [place] hemispherical cluster hole cup Liner: 36 mm flat cross-link polyethylene liner Head: 6 mm head +5 neck extension The patient is placed in a right lateral decubitus position on the operating table. The left lower extremity and hindquarter is prepped and draped in a sterile fashion. A curvilinear incision was made over the greater trochanter a posterior approach the hip was taken. The femoral head is not able to be dislocated from the acetabulum. An in situ neck cut is then made with an oscillating saw but I am not able to retract the femur away from the underlying femoral head because of scar tissue. Subsequently a greater trochanteric osteotomy was performed. The femoral head is identified. She attempted to be removed with a corkscrew which was unsuccessful. Subsequently removed piecemeal using an osteotome and a hemispherical reamer. Attention was next turned to the acetabulum. Soft tissues cleared off the acetabulum using electrocautery. The acetabulum was then prepared using a series of hemispherical reamers until a 57 millimeters reamer is seated. Subsequently a 58 millimeters [place] titanium hemispherical shell is impacted into position and secured with 2 screw. A standard flat 36 millimeters cross- link liner is impacted into the shell. Attention was next turned to the femur. Access is gained to the femoral canal using a box osteotome to the piriformis fossa. The femur is then prepared using a series of conical reamers until a number 17 meter reamer is seated. The proximal femur was then reamed to accept a 19 mm proximal body. A trial reduction was now performed using a 36 millimeters head with 5 neck. Preoperative leg length was recreated and is excellent anterior posterior stability. A decision was made to proceed with the above construct. All trial implants were removed. The wound is irrigated with pulsed lavage. A nodular orthodoxy stem 17 mm x 1 55 mm stem is impacted into the femoral canal. A trial reduction was again performed with a 36 mm head and a +5 neck. Initially appears to be some anterior instability. The proximal body is and oriented with minimal anteversion. Posterior osteophyte off the proximal femurs debrided to prevent impingement.. The hip was dislocated one last time and the final chrome-cobalt head is impacted onto the trunnion. The hip was reduced. The trochanteric osteotomy was repaired using #5 FiberWire. Bone reamings from the acetabulum and then packed into the osteotomy site. Wound is copiously irrigated with pulsed lavage. Sent closed in layers using interrupted Vicryl followed by dashawn. A sterile dressing is applied and the patient's returned to recovery room in satisfactory patient.
[2017-03-27] MEDS ORDERED: ACETAMINOPHEN 325 MG TABLET PO PRN (10:28)
[2017-03-27] MEDS ORDERED: ONDANSETRON 4 MG TAB.RAPDIS PO PRN (10:28)
[2017-03-27] MEDS ORDERED: RINGERS SOLUTION,LACTATED 1,000 ML IV PRN (10:28)
[2017-03-27] MEDS ORDERED: ONDANSETRON HCL INJ/PF 4 MG/2 ML SDV IV PRN (10:28)
[2017-03-27] MEDS ORDERED: OXYCODONE HCL IR 5 MG TABLET PO PRN (10:28)
[2017-03-27] MEDS ORDERED: MORPHINE SULFATE 10 MG/ML INJ IM PRN (10:28)
[2017-03-27] MEDS ORDERED: MAG HYDROX/AL HYDROX/SIMETH SUSP 30 ML UDCUP PO PRN (10:28)
[2017-03-27] MEDS ORDERED: ZOLPIDEM TARTRATE 5 MG TABLET PO PRN (10:28)
[2017-03-27] MEDS ORDERED: MORPHINE SULFATE 10 MG/ML INJ IV PRN ×3 (10:28)
[2017-03-27] MEDS ORDERED: IBUPROFEN INJ 800 MG/8 ML VIAL IV ONE (10:55)
[2017-03-27] MEDS: ASPIRIN 81 MG TABLET, CHEWABLE PO SCH (12:44)
[2017-03-27] MEDS: LOSARTAN POTASSIUM 50 MG TABLET PO SCH (12:44)
--- NOTE | 2017-03-27 13:01 | RADIOLOGY REPORT (SQ) ---
EXAM DESCRIPTION: PELVIS AP COMPLETED DATE/TIME: 03/27/2017 11:44 am REASON FOR STUDY: Post Op Long Cassette in PACU COMPARISON: CT left hip 03/24/2017 NUMBER OF VIEWS: 5 AP portable pelvis and left proximal femur films. TECHNIQUE: Digital radiographic images of the left hip post-procedure. LIMITATIONS: None. FINDINGS: BONES: Bony pelvis is intact. Right hip unremarkable. On the left side, a total hip replacement is present. There is an osteotomy defect along the left gr eater trochanter lateral margin. DEVICE: There is a left-sided hip replacement with acetabular component and long femoral prosthesis. Anchoring screws for the acetabular component inferior dorsal to the bony cortex left hemipelvis on today's plain films. The first 3 films demonstrate dislocation of the femoral component out of the acetabular component. Final 2 films demonstrate the left femoral head is seated in the acetabular component. SOFT TISSUES: No worrisome findings. Expected postoperative soft tissue changes. Davis catheter in the bladder IMPRESSION: Acetabular anchoring screws appear to be dorsal to the left innominate bone. Osteotomy along the left proximal femur greater trochanter without cerclage wires or anchoring lily hendrix TECHNICAL DOCUMENTATION: JOB ID: [id number] [employer]- All Rights Reserved
--- NOTE | 2017-03-27 15:37 | PDOC PROGRESS REPORT ---
Subjective Progress Note for:: 03/27/17 Subjective:: Pt is seen resting in bed comfortably status post left total hip arthroplasty by Dr. Brown this morning. Patient reports that he "feels like a new man." He states that he looks forward to starting physical therapy and hopefully ambulating in the near future. He denies robles, dizziness, chest pain, palpitations, dyspnea, orthopnea, and cough. He has no other questions or concerns today. Physical Exam Vital Signs: Temp Pulse Resp BP Pulse Ox 98.0 F 100 16 149/101 H 100 03/27/17 14:30 03/27/17 14:30 03/27/17 14:30 03/27/17 14:30 03/27/17 14:30 Intake & Output 03/26/17 03/27/17 03/28/17 06:59 06:59 06:59 Intake Total 243 3190 6250 Output Total 250 1200 5230 Balance -7 1989 1020 Weight 78.3 kg General appearance: PRESENT: no acute distress, well-developed, well-nourished, other - overweight Head exam: PRESENT: atraumatic, normocephalic Eye exam: PRESENT: conjunctiva pink, EOMI, PERRLA. ABSENT: scleral icterus Ear exam: PRESENT: normal external ear exam Mouth exam: PRESENT: moist, tongue midline Neck exam: ABSENT: carotid bruit, JVD, lymphadenopathy, thyromegaly Respiratory exam: PRESENT: clear to auscultation ketty. ABSENT: rales, rhonchi, wheezes Cardiovascular exam: PRESENT: RRR. ABSENT: diastolic murmur, rubs, systolic murmur Pulses: PRESENT: normal dorsalis pedis pul Vascular exam: PRESENT: normal capillary refill GI/Abdominal exam: PRESENT: normal bowel sounds, soft. ABSENT: distended, guarding, mass, organolmegaly, rebound, tenderness Rectal exam: PRESENT: deferred Extremities exam: PRESENT: tenderness - Lt hip. ABSENT: calf tenderness, clubbing, pedal edema Musculoskeletal exam: ABSENT: ambulatory Neurological exam: PRESENT: alert, awake, oriented to person, oriented to place , oriented to time, oriented to situation, CN II-XII grossly intact, other - Abnormal speech. ABSENT: motor sensory deficit Psychiatric exam: PRESENT: appropriate affect, normal mood. ABSENT: homicidal ideation, suicidal ideation Skin exam: PRESENT: dry, warm. ABSENT: cyanosis, intact - Surgical incision left hip; dressing clean dry and intact, rash Results Laboratory Results: 03/27/17 05:52 03/27/17 05:52 03/27/17 03/27/17 05:52 05:52 WBC 5.0 RBC 4.22 L Hgb 13.4 L Hct 39.4 MCV 93 MCH 31.8 MCHC 34.1 RDW 14.4 H Plt Count 194 Sodium 145.9 H Potassium 4.2 Chloride 106 Carbon Dioxide 28 Anion Gap 12 BUN 28 H Creatinine 1.25 Est GFR ( Amer) > 60 Est GFR (Non-Af Amer) 58 L Glucose 95 Calcium 8.7 03/24/17 03/24/17 03/27/17 16:55 16:55 05:52 Creatine Kinase 224 H CK-MB (CK-2) 2.59 Troponin I < 0.012 < 0.012 03/27/17 07:49 Creatine Kinase CK-MB (CK-2) Troponin I < 0.012 Impressions: Head CT 03/24/17 00:00 IMPRESSION: MILD CHRONIC CHANGES OF ATROPHY AND MICROVASCULAR ISCHEMIA. NO ACUTE PROCESS. EVIDENCE OF ACUTE STROKE: NO. Hip X-Ray 03/24/17 11:27 IMPRESSION: SEVERE DEGENERATIVE CHANGES IN THE LEFT HIP. DIFFICULT TO ASSESS FOR ACUTE FINDINGS. NO OTHER SIGNIFICANT FINDINGS. Lower Extremity CT 03/24/17 12:38 IMPRESSION: SEVERE DEGENERATIVE CHANGES OF THE LEFT HIP. NO ACUTE FRACTURE VISUALIZED. Chest X-Ray 03/24/17 19:33 IMPRESSION: NO ACUTE RADIOGRAPHIC FINDING IN THE CHEST. Pelvis X-Ray 03/27/17 10:31 IMPRESSION: Acetabular anchoring screws appear to be dorsal to the left innominate bone. Osteotomy along the left proximal femur greater trochanter without cerclage wires or anchoring hardware Assessment & Plan - Diagnosis (1) Uncontrolled hypertension Is this a current diagnosis for this admission?: Yes Plan: Remains elevated despite losartan. Patient's echocardiogram reviewed; LVEF normal, mild to moderate diastolic dysfunction noted. Will add low-dose beta- madelin and continue ARB. 1- Continue Losartan 2- Start Coreg 3- Vasotec q 6 h prn 4- Cardiac diet 5- Appreciate Cardiology's recommendations (2) SHEYLA (acute kidney injury) Is this a current diagnosis for this admission?: Yes Plan: Creatinine slightly improved today (1.12--> 1.27--> 1.25). Pt has been intermittently npo for preop. We will continue IVF and monitor. (3) CHF (congestive heart failure) Qualifiers: Congestive heart failure type: unspecified congestive heart failure type Congestive heart failure chronicity: chronic Qualified Code(s): I50.9 - Heart failure, unspecified Is this a current diagnosis for this admission?: Yes Plan: Pt appears compensated; euvolemic and without orthopnea/dyspnea. Will monitor daily weights as he is now receiving gentle IVF hydration. Pt has required diuretics in the past. Echocardiogram completed; mild to moderate diastolic dysfunction with preserved ejection fraction. 1- Cardiology following 2- Cardiac diet/daily weights (4) Inability to ambulate due to left hip Is this a current diagnosis for this admission?: Yes Plan: Status post left hip arthroplasty by Dr. Brown this morning. 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 Pt now on ASA and Lipitor. - Time Time Spent with patient: 25-34 minutes Medications reviewed and adjusted accordingly: Yes Anticipated discharge: SNF
[2017-03-27] MEDS: IBUPROFEN 800 MG in NORMAL SALINE 250 ML IV SCH (18:21)
[2017-03-27] MEDS: PREGABALIN 75 MG CAPSULE PO SCH (18:22)
[2017-03-27] MEDS: MORPHINE SULFATE 10 MG/ML INJ IV PRN (18:22)
--- NOTE | 2017-03-27 19:38 | PDOC PROGRESS REPORT ---
Subjective Progress Note for:: 03/27/17 Subjective:: 2D echo results reviewed. EKG reviewed. I was asked to see this patient again in preop consultation because he was noted to have some change in EKG. EKG obtained this morning, ordered by Dr. Francis showed that possibility of posterior infarction. I advised the nurses to draw a stat troponin I. This came back negative. Patient was cleared for surgery. Physical Exam Vital Signs: Temp Pulse Resp BP Pulse Ox 98.3 F 77 12 146/95 H 100 03/27/17 16:57 03/27/17 16:57 03/27/17 16:05 03/27/17 16:57 03/27/17 16:57 Intake & Output 03/26/17 03/27/17 03/28/17 06:59 06:59 06:59 Intake Total 243 3190 7790 Output Total 250 1200 5330 Balance -7 1989 2459 Weight 78.3 kg Exam: GENERAL: well-nourished and in no acute distress. Alert and oriented x3 HEAD: Atraumatic, normocephalic. EYES: Pupils equal round and reactive to light, extraocular movements intact, sclera anicteric, conjunctiva are normal. ENT: TMs normal, nares patent, oropharynx clear without exudates. Moist mucous membranes. No oral ulcerations or bleeding gums noted NECK: supple without lymphadenopathy. Trachea is central. No cervical or axillary lymphadenopathy noted. Carotids are 2+, JVD WNL LUNGS: Respiration seems nonlabored, no significant accessory muscle action noted. Breath sounds clear to auscultation bilaterally and equal noted. No wheezes rales or rhonchi noted. No significant dullness noted on percussion. CHEST: Palpation of the chest wall shows no significant chest wall tenderness. No other significant abnormalities noted. 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 ABDOMEN: Soft, no significant tenderness appreciated, normoactive bowel sounds. No guarding, no rebound. No rigidity noted . No masses appreciated. EXTREMITIES: Pedal pulses are 1-2+, no calf tenderness noted. No clubbing or cyanosis.trace to 1+ pedal edema noted NEUROLOGICAL: Focused neurological exam showed no significant neurologic deficit. His speech is slurred and somewhat garbled, mild upper right extremity weakness appreciated. PSYCH: Normal mood, normal affect. Judgment and insight could not be checked because of limited verbal communication. SKIN: No significant ecchymosis, rash, ulcerations or signs of pruritus noted. MUSCULOSKELETAL EXAM: No significant joint swelling noted. Patient noted to have some difficulty with mobility of the left lower extremity Results Laboratory Results: 03/27/17 05:52 03/27/17 05:52 03/27/17 03/27/17 05:52 05:52 WBC 5.0 RBC 4.22 L Hgb 13.4 L Hct 39.4 MCV 93 MCH 31.8 MCHC 34.1 RDW 14.4 H Plt Count 194 Sodium 145.9 H Potassium 4.2 Chloride 106 Carbon Dioxide 28 Anion Gap 12 BUN 28 H Creatinine 1.25 Est GFR ( Amer) > 60 Est GFR (Non-Af Amer) 58 L Glucose 95 Calcium 8.7 03/24/17 03/24/17 03/27/17 16:55 16:55 05:52 Creatine Kinase 224 H CK-MB (CK-2) 2.59 Troponin I < 0.012 < 0.012 03/27/17 07:49 Creatine Kinase CK-MB (CK-2) Troponin I < 0.012 EKG Comments: EKG and rhythm strips reviewed. Please see HPI Impressions: Head CT 03/24/17 00:00 IMPRESSION: MILD CHRONIC CHANGES OF ATROPHY AND MICROVASCULAR ISCHEMIA. NO ACUTE PROCESS. EVIDENCE OF ACUTE STROKE: NO. Hip X-Ray 03/24/17 11:27 IMPRESSION: SEVERE DEGENERATIVE CHANGES IN THE LEFT HIP. DIFFICULT TO ASSESS FOR ACUTE FINDINGS. NO OTHER SIGNIFICANT FINDINGS. Lower Extremity CT 03/24/17 12:38 IMPRESSION: SEVERE DEGENERATIVE CHANGES OF THE LEFT HIP. NO ACUTE FRACTURE VISUALIZED. Chest X-Ray 03/24/17 19:33 IMPRESSION: NO ACUTE RADIOGRAPHIC FINDING IN THE CHEST. Pelvis X-Ray 03/27/17 10:31 IMPRESSION: Acetabular anchoring screws appear to be dorsal to the left innominate bone. Osteotomy along the left proximal femur greater trochanter without cerclage wires or anchoring hardware Assessment & Plan - Diagnosis (1) Pre-operative clearance Is this a current diagnosis for this admission?: Yes (2) Benign essential hypertension Is this a current diagnosis for this admission?: Yes (3) CHF (congestive heart failure) Qualifiers: Congestive heart failure type: unspecified congestive heart failure type Congestive heart failure chronicity: chronic Qualified Code(s): I50.9 - Heart failure, unspecified Is this a current diagnosis for this admission?: Yes (4) Inability to ambulate due to left hip Is this a current diagnosis for this admission?: Yes (5) Non compliance with medical treatment Is this a current diagnosis for this admission?: Yes (6) Abnormal electrocardiogram Is this a current diagnosis for this admission?: Yes - Notes Notes: Abnormal electrocardiogram most likely related to lead placement. Troponin I has come back negative. Patient was cleared for surgery, after patient was seen in the PACU unit. Will follow patient's postop. Patient has other comorbidities but these are stable. - Time Time with patient: 15-25 minutes - More than 50% of the time spent coordinating care, discussing management plans with involved caregivers. Management plans discussed with involved personnels. Medical decision making was of moderate to high complexity, patient's has multiple comorbidities. Medications reviewed and adjusted accordingly: Yes
--- NOTE | 2017-03-27 19:43 | EKG REPORT ---
SEVERITY:- BORDERLINE ECG - SINUS RHYTHM CONSIDER RVH OR POSTERIOR INFARCT : Confirmed by: Cleopatra Francis MD 27-Mar-2017 19:42:24
[2017-03-27] MEDS: CARVEDILOL 3.125 MG TABLET PO SCH (22:28)
[2017-03-27] MEDS: OXYCODONE HCL SR 10 MG TABLET PO SCH (22:28)
[2017-03-27] MEDS: ATORVASTATIN CALCIUM 10 MG TABLET PO SCH (22:28)
[2017-03-27] MEDS: RIVAROXABAN 10 MG TABLET PO SCH (22:28)
[2017-03-27] MEDS ORDERED: VANCOMYCIN HCL 1,000 MG in DEXTROSE 5%-WATER 250 ML IV ONE (22:28)
[2017-03-28] MEDS: IBUPROFEN 800 MG in NORMAL SALINE 250 ML IV SCH ×3 (02:24→17:48)
[2017-03-28] MEDS: LANSOPRAZOLE 30 MG TAB.RAP.DR PO SCH (05:16)
[2017-03-28 06:18] LABS: HEMATOCRIT 30.4 % (37.9-51.0); HGB HCT DIFFERENCE 1.4; MEAN CORPUSCULAR HEMOGLOBIN 32.3 pg (27.0-33.4); MEAN CORPUSCULAR VOLUME 92 fl (80-97); RED CELL DISTRIBUTION WIDTH 13.7 % (11.5-14.0)
[2017-03-28 06:27] LABS: HEMOGLOBIN 10.6 g/dL (13.5-17.0)
[2017-03-28 06:43] LABS: ANION GAP 6 (5-19); BLOOD UREA NITROGEN 33 mg/dL (7-20); CARBON DIOXIDE 27 mmol/L (22-30); CHLORIDE 107 mmol/L (98-107); CREATININE RESULT 1.43 mg/dL (0.52-1.25); GLUCOSE 116 mg/dL (75-110); POTASSIUM 4.4 mmol/L (3.6-5.0); SODIUM 140.1 mmol/L (137-145)
--- NOTE | 2017-03-28 07:26 | PDOC PROGRESS REPORT ---
Subjective Progress Note for:: 03/28/17 Subjective:: Patient asleep and entering the room this morning lying comfortably recumbent in hospital bed. He was aroused after his name was called multiple times. Patient responded affirmatively that he is comfortable and not in any pain. It was difficult to understand patient's speech this morning. Physical Exam Vital Signs: Temp Pulse Resp BP Pulse Ox 36.8 C 77 16 130/85 H 100 03/27/17 23:27 03/27/17 23:27 03/27/17 23:27 03/27/17 23:27 03/27/17 23:27 Intake & Output 03/27/17 03/28/17 03/29/17 06:59 06:59 06:59 Intake Total 3190 9490 Output Total 1200 5830 Balance 1989 3659 Weight 78.3 kg 78.5 kg General appearance: PRESENT: no acute distress Head exam: PRESENT: atraumatic, normocephalic Respiratory exam: PRESENT: unlabored Pulses: PRESENT: normal dorsalis pedis pul, +2 pedal pulses bilateral Additional comments: Patient lying recumbent in hospital bed with left lower extremity in full extension with metal brace in place. His OpSite dressings are clean dry and intact. He is somewhat tender to palpation along wound margins. He has brisk capillary refill to toes on bilateral lower extremities his sensorimotor functions are intact and his distal neurovascular exam is intact. Additional comments: Patient make slow progress with physical therapy as he has not yet ambulated postoperatively. He will continue to work with physical therapy to work towards ambulation and increase strength and range of motion of the left lower extremity. Neurological exam: PRESENT: alert, awake, oriented to person, oriented to place , oriented to time, oriented to situation, CN II-XII grossly intact. ABSENT: motor sensory deficit Psychiatric exam: PRESENT: appropriate affect, normal mood. ABSENT: homicidal ideation, suicidal ideation Skin exam: PRESENT: dry, intact, warm. ABSENT: cyanosis, rash Results Laboratory Results: 03/28/17 05:57 03/28/17 05:57 03/28/17 03/28/17 05:57 05:57 WBC 4.0 RBC 3.30 L Hgb 10.6 L D Hct 30.4 L MCV 92 MCH 32.3 MCHC 35.0 RDW 13.7 Plt Count 142 L Sodium 140.1 Potassium 4.4 Chloride 107 Carbon Dioxide 27 Anion Gap 6 BUN 33 H Creatinine 1.43 H Est GFR ( Amer) > 60 Est GFR (Non-Af Amer) 50 L Glucose 116 H Calcium 8.0 L 03/24/17 03/24/17 03/27/17 16:55 16:55 05:52 Creatine Kinase 224 H CK-MB (CK-2) 2.59 Troponin I < 0.012 < 0.012 03/27/17 07:49 Creatine Kinase CK-MB (CK-2) Troponin I < 0.012 Impressions: Head CT 03/24/17 00:00 IMPRESSION: MILD CHRONIC CHANGES OF ATROPHY AND MICROVASCULAR ISCHEMIA. NO ACUTE PROCESS. EVIDENCE OF ACUTE STROKE: NO. Hip X-Ray 03/24/17 11:27 IMPRESSION: SEVERE DEGENERATIVE CHANGES IN THE LEFT HIP. DIFFICULT TO ASSESS FOR ACUTE FINDINGS. NO OTHER SIGNIFICANT FINDINGS. Lower Extremity CT 03/24/17 12:38 IMPRESSION: SEVERE DEGENERATIVE CHANGES OF THE LEFT HIP. NO ACUTE FRACTURE VISUALIZED. Chest X-Ray 03/24/17 19:33 IMPRESSION: NO ACUTE RADIOGRAPHIC FINDING IN THE CHEST. Pelvis X-Ray 03/27/17 10:31 IMPRESSION: Acetabular anchoring screws appear to be dorsal to the left innominate bone. Osteotomy along the left proximal femur greater trochanter without cerclage wires or anchoring hardware Assessment & Plan - Diagnosis (1) Closed left hip fracture Qualifiers: Encounter type: subsequent encounter Is this a current diagnosis for this admission?: Yes - Plan Summary Plan Summary: 66-year-old -[place] male 1 day status post total left hip arthroplasty. Patient's pain is well controlled however he makes slow progress with physical therapy as he has not yet ambulated postoperatively. He will continue to work with physical therapy to improve strength range of motion of the left lower extremity work towards ambulation. Pending his progress we will plan for discharge later this week.
[2017-03-28] MEDS ORDERED: NORMAL SALINE 1000 ML 1,000 ML IV PRN ×2 (08:06→12:35)
[2017-03-28] MEDS ORDERED: NORMAL SALINE 1000 ML 1,000 ML IV ONE (08:06)
[2017-03-28] MEDS: LOSARTAN POTASSIUM 50 MG TABLET PO SCH (10:17)
[2017-03-28] MEDS: PREGABALIN 75 MG CAPSULE PO SCH ×2 (10:18→17:49)
[2017-03-28] MEDS: OXYCODONE HCL SR 10 MG TABLET PO SCH ×2 (10:18→23:14)
[2017-03-28] MEDS: ASPIRIN 81 MG TABLET, CHEWABLE PO SCH (10:19)
[2017-03-28] MEDS: CARVEDILOL 3.125 MG TABLET PO SCH ×2 (10:19→23:11)
--- NOTE | 2017-03-28 11:58 | PDOC PROGRESS REPORT ---
Subjective Progress Note for:: 03/28/17 Subjective:: Patient is postop left hip surgery day 1. Claims to be doing well without any chest pain. Patient is denying any shortness of breath. He is laying comfortably and eating. Patient is difficult to understand but looks comfortable. Physical Exam Vital Signs: Temp Pulse Resp BP Pulse Ox 98.3 F 77 16 130/85 H 100 03/27/17 23:27 03/27/17 23:27 03/27/17 23:27 03/27/17 23:27 03/27/17 23:27 Intake & Output 03/27/17 03/28/17 03/29/17 06:59 06:59 06:59 Intake Total 3190 9490 Output Total 1200 5830 Balance 1989 3659 Weight 78.3 kg 78.5 kg Exam: GENERAL: well-nourished and in no acute distress. Alert and oriented x3 HEAD: Atraumatic, normocephalic. EYES: Pupils equal round and reactive to light, extraocular movements intact, sclera anicteric, conjunctiva are normal. ENT: TMs normal, nares patent, oropharynx clear without exudates. Moist mucous membranes. No oral ulcerations or bleeding gums noted NECK: supple without lymphadenopathy. Trachea is central. No cervical or axillary lymphadenopathy noted. Carotids are 2+, JVD WNL LUNGS: Respiration seems nonlabored, no significant accessory muscle action noted. Breath sounds clear to auscultation bilaterally and equal noted. No wheezes rales or rhonchi noted. No significant dullness noted on percussion. CHEST: Palpation of the chest wall shows no significant chest wall tenderness. No other significant abnormalities noted. HEART: [place] [employer], No PSH, 1/6 OWEN aortic area, 1/6 richards systolic murmur mitral area, no rubs, no gallops. ABDOMEN: Soft, no significant tenderness appreciated, normoactive bowel sounds. No guarding, no rebound. No rigidity noted . No masses appreciated. EXTREMITIES: Pedal pulses are 1-2+, no calf tenderness noted. No clubbing or cyanosis.trace to 1+ pedal edema noted NEUROLOGICAL: Focused neurological exam showed no significant neurologic deficit. Speech is noted to be somewhat slurred and garbled. Mild right upper extremity weakness noted. PSYCH: Normal mood, normal affect. Judgment and insight was not assessed SKIN: No significant ecchymosis, rash, ulcerations or signs of pruritus noted. MUSCULOSKELETAL EXAM: No significant joint swelling noted. Patient is status post left hip surgery. Results Laboratory Results: 03/28/17 05:57 03/28/17 05:57 03/28/17 03/28/17 05:57 05:57 WBC 4.0 RBC 3.30 L Hgb 10.6 L D Hct 30.4 L MCV 92 MCH 32.3 MCHC 35.0 RDW 13.7 Plt Count 142 L Sodium 140.1 Potassium 4.4 Chloride 107 Carbon Dioxide 27 Anion Gap 6 BUN 33 H Creatinine 1.43 H Est GFR ( Amer) > 60 Est GFR (Non-Af Amer) 50 L Glucose 116 H Calcium 8.0 L 03/24/17 03/24/17 03/27/17 16:55 16:55 05:52 Creatine Kinase 224 H CK-MB (CK-2) 2.59 Troponin I < 0.012 < 0.012 03/27/17 07:49 Creatine Kinase CK-MB (CK-2) Troponin I < 0.012 EKG Comments: Telemetry strips shows sinus rhythm without any sustained tachycardia or bradycardia arrhythmias. Impressions: Head CT 03/24/17 00:00 IMPRESSION: MILD CHRONIC CHANGES OF ATROPHY AND MICROVASCULAR ISCHEMIA. NO ACUTE PROCESS. EVIDENCE OF ACUTE STROKE: NO. Hip X-Ray 03/24/17 11:27 IMPRESSION: SEVERE DEGENERATIVE CHANGES IN THE LEFT HIP. DIFFICULT TO ASSESS FOR ACUTE FINDINGS. NO OTHER SIGNIFICANT FINDINGS. Lower Extremity CT 03/24/17 12:38 IMPRESSION: SEVERE DEGENERATIVE CHANGES OF THE LEFT HIP. NO ACUTE FRACTURE VISUALIZED. Chest X-Ray 03/24/17 19:33 IMPRESSION: NO ACUTE RADIOGRAPHIC FINDING IN THE CHEST. Pelvis X-Ray 03/27/17 10:31 IMPRESSION: Acetabular anchoring screws appear to be dorsal to the left innominate bone. Osteotomy along the left proximal femur greater trochanter without cerclage wires or anchoring hardware Assessment & Plan - Diagnosis (1) Benign essential hypertension Is this a current diagnosis for this admission?: Yes (2) CHF (congestive heart failure) Qualifiers: Congestive heart failure type: unspecified congestive heart failure type Congestive heart failure chronicity: chronic Qualified Code(s): I50.9 - Heart failure, unspecified Is this a current diagnosis for this admission?: Yes (3) Inability to ambulate due to left hip Is this a current diagnosis for this admission?: Yes (4) Non compliance with medical treatment Is this a current diagnosis for this admission?: Yes (5) Status post hip surgery Is this a current diagnosis for this admission?: Yes - Notes Notes: Status post left hip surgery: Patient has done well. Hypertension: Blood pressure under satisfactory control. CHF: Seems compensated on clinical exam. Ambulatory dysfunction: Recommend physical therapy. Patient currently is stable from cardiac standpoint. Will follow 1 more day. - Time Time with patient: 15-25 minutes - More than 50% of the time spent coordinating care, discussing management plans with involved caregivers. Management plans discussed with involved personnels. Medical decision making was of moderate to high complexity, patient's has multiple comorbidities. Medications reviewed and adjusted accordingly: Yes
--- NOTE | 2017-03-28 14:36 | PDOC PROGRESS REPORT ---
Subjective Progress Note for:: 03/28/17 Subjective:: Pt is seen resting in bed comfortably status post left total hip arthroplasty by Dr. Brown yesterday. Upon entering the room, the patient was found sleeping , but woke easily for a brief period of time. He tells me that he is pain- free. He has not yet been ambulatory or had the opportunity to work with physical therapy, however, he is looking forward to beginning rehabilitation. He denies robles, dizziness, chest pain, palpitations, dyspnea, orthopnea, and cough. He has no other questions or concerns today. Physical Exam Vital Signs: Temp Pulse Resp BP Pulse Ox 98.3 F 77 16 130/85 H 100 03/27/17 23:27 03/27/17 23:27 03/27/17 23:27 03/27/17 23:27 03/28/17 13:22 Intake & Output 03/27/17 03/28/17 03/29/17 06:59 06:59 06:59 Intake Total 3190 9490 Output Total 1200 5830 Balance 1989 366 Weight 78.3 kg 78.5 kg General appearance: PRESENT: no acute distress, well-developed, well-nourished, other - Overweight Head exam: PRESENT: atraumatic, normocephalic Eye exam: PRESENT: conjunctiva pink, EOMI, PERRLA. ABSENT: scleral icterus Ear exam: PRESENT: normal external ear exam Mouth exam: PRESENT: moist, tongue midline Neck exam: ABSENT: carotid bruit, JVD, lymphadenopathy, thyromegaly Respiratory exam: PRESENT: clear to auscultation ketty, rhonchi, symmetrical, unlabored. ABSENT: rales, wheezes Cardiovascular exam: PRESENT: RRR. ABSENT: diastolic murmur, rubs, systolic murmur, tachycardia Pulses: PRESENT: normal dorsalis pedis pul Vascular exam: PRESENT: normal capillary refill GI/Abdominal exam: PRESENT: normal bowel sounds, soft. ABSENT: distended, guarding, mass, organolmegaly, rebound, tenderness Rectal exam: PRESENT: deferred Extremities exam: PRESENT: full ROM. ABSENT: calf tenderness, clubbing, pedal edema Neurological exam: PRESENT: alert, awake, oriented to person, oriented to place , oriented to time, oriented to situation, CN II-XII grossly intact. ABSENT: motor sensory deficit Psychiatric exam: PRESENT: appropriate affect, normal mood. ABSENT: homicidal ideation, suicidal ideation Skin exam: PRESENT: dry, intact - Surgical incision to left lateral hip; dressing clean dry and intact, warm. ABSENT: cyanosis, rash Results Laboratory Results: 03/28/17 05:57 03/28/17 05:57 03/28/17 03/28/17 05:57 05:57 WBC 4.0 RBC 3.30 L Hgb 10.6 L D Hct 30.4 L MCV 92 MCH 32.3 MCHC 35.0 RDW 13.7 Plt Count 142 L Sodium 140.1 Potassium 4.4 Chloride 107 Carbon Dioxide 27 Anion Gap 6 BUN 33 H Creatinine 1.43 H Est GFR ( Amer) > 60 Est GFR (Non-Af Amer) 50 L Glucose 116 H Calcium 8.0 L 03/24/17 03/24/17 03/27/17 16:55 16:55 05:52 Creatine Kinase 224 H CK-MB (CK-2) 2.59 Troponin I < 0.012 < 0.012 03/27/17 07:49 Creatine Kinase CK-MB (CK-2) Troponin I < 0.012 Impressions: Head CT 03/24/17 00:00 IMPRESSION: MILD CHRONIC CHANGES OF ATROPHY AND MICROVASCULAR ISCHEMIA. NO ACUTE PROCESS. EVIDENCE OF ACUTE STROKE: NO. Hip X-Ray 03/24/17 11:27 IMPRESSION: SEVERE DEGENERATIVE CHANGES IN THE LEFT HIP. DIFFICULT TO ASSESS FOR ACUTE FINDINGS. NO OTHER SIGNIFICANT FINDINGS. Lower Extremity CT 03/24/17 12:38 IMPRESSION: SEVERE DEGENERATIVE CHANGES OF THE LEFT HIP. NO ACUTE FRACTURE VISUALIZED. Chest X-Ray 03/24/17 19:33 IMPRESSION: NO ACUTE RADIOGRAPHIC FINDING IN THE CHEST. Pelvis X-Ray 03/27/17 10:31 IMPRESSION: Acetabular anchoring screws appear to be dorsal to the left innominate bone. Osteotomy along the left proximal femur greater trochanter without cerclage wires or anchoring hardware Assessment & Plan - Diagnosis (1) SHEYLA (acute kidney injury) Is this a current diagnosis for this admission?: Yes Plan: Creatinine slightly improved today (1.12--> 1.27--> 1.25-->1.43). Patient's creatinine has worsened again today despite liberal IV fluids. The patient has a history of CHF there is concern for fluid volume overload and so therefore will reduce IV fluids and consider alternative causes for the patient's worsening kidney function. Nursing does report that the patient appears to have urinary frequency, hesitancy, and dribbling. He denies known history of BPH, however, this would be a likely source of pain postrenal cause of his acute failure. Will obtain a postvoid bladder scan and anticipate need for Davis catheterization. Patient will be started on Flomax empirically and will obtain a renal ultrasound. (2) Uncontrolled hypertension Is this a current diagnosis for this admission?: Yes Plan: Improved today. Patient's echocardiogram reviewed; LVEF normal, mild to moderate diastolic dysfunction noted. Will add low-dose beta-madelin and continue ARB. 1- Continue Losartan 2- Start Coreg 3- Vasotec q 6 h prn 4- Cardiac diet 5- Appreciate Cardiology's recommendations (3) CHF (congestive heart failure) Qualifiers: Congestive heart failure type: unspecified congestive heart failure type Congestive heart failure chronicity: chronic Qualified Code(s): I50.9 - Heart failure, unspecified Is this a current diagnosis for this admission?: Yes Plan: Pt appears compensated; euvolemic and without orthopnea/dyspnea. Pt has required diuretics in the past; he has been receiving IV fluid hydration for treatment of SHEYLA and so will monitor closely for fluid volume overload. Echocardiogram completed; mild to moderate diastolic dysfunction with preserved ejection fraction. 1- Cardiology following 2- Cardiac diet/daily weights; weight stable (4) Inability to ambulate due to left hip Is this a current diagnosis for this admission?: Yes Plan: Status post left hip arthroplasty by Dr. Brown postop day 1. 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 Pt now on ASA and Lipitor. - Time Time Spent with patient: 25-34 minutes Medications reviewed and adjusted accordingly: Yes Anticipated discharge: Acute Rehab
--- NOTE | 2017-03-28 18:06 | RADIOLOGY REPORT (SQ) ---
EXAM DESCRIPTION: U/S RETROPERITON LTD COMPLETED DATE/TIME: 03/28/2017 5:34 pm REASON FOR STUDY: ARF COMPARISON: None. TECHNIQUE: Dynamic and static grayscale images acquired of the kidneys and bladder and recorded on P ACS. Additional selected color Doppler and spectral images recorded. LIMITATIONS: Midline bowel gas, body habitus FINDINGS: Large amount of bowel gas. Very limited acoustic window for evaluation of the kidneys. Right kidney is 10 cm in length. No gross hydronephrosis. Left kidney was not visualized. Urinary bladder not visualized. IMPRESSION: Very limited study. Right kidney without hydronephrosis. Nonvisualization left kidney and bladder TECHNICAL DOCUMENTATION: JOB ID: [id number] [employer]- All Rights Reserved
[2017-03-28] MEDS: RIVAROXABAN 10 MG TABLET PO SCH (23:11)
[2017-03-28] MEDS: TAMSULOSIN HCL 0.4 MG CAP.SR.24H PO SCH (23:12)
[2017-03-28] MEDS: ATORVASTATIN CALCIUM 10 MG TABLET PO SCH (23:13)
[2017-03-29] MEDS: IBUPROFEN 800 MG in NORMAL SALINE 250 ML IV SCH (03:16)
[2017-03-29 05:07] LABS: HEMATOCRIT 30.3 % (37.9-51.0); HEMOGLOBIN 10.3 g/dL (13.5-17.0); HGB HCT DIFFERENCE 0.6; MEAN CORPUSCULAR HGB CONC 33.9 g/dL (32.0-36.0); MEAN CORPUSCULAR VOLUME 94 fl (80-97); RED BLOOD COUNT 3.21 10^6/uL (4.35-5.55); RED CELL DISTRIBUTION WIDTH 14.2 % (11.5-14.0); WHITE BLOOD COUNT 6.8 10^3/uL (4.0-10.5)
[2017-03-29 05:36] LABS: ANION GAP 16 (5-19); CALCIUM 8.3 mg/dL (8.4-10.2); CARBON DIOXIDE 22 mmol/L (22-30); CHLORIDE 105 mmol/L (98-107); CREATININE RESULT 3.41 mg/dL (0.52-1.25); GLUCOSE 101 mg/dL (75-110); POTASSIUM 5.1 mmol/L (3.6-5.0)
[2017-03-29 05:56] LABS: BLOOD UREA NITROGEN 53 mg/dL (7-20)
[2017-03-29] MEDS: LANSOPRAZOLE 30 MG TAB.RAP.DR PO SCH (06:35)
--- NOTE | 2017-03-29 07:08 | PDOC PROGRESS REPORT ---
Subjective Progress Note for:: 03/29/17 Subjective:: Patient without significant discomfort this morning Physical Exam Vital Signs: Temp Pulse Resp BP Pulse Ox 36.5 C 70 20 120/69 92 03/28/17 23:30 03/28/17 23:30 03/28/17 23:30 03/28/17 23:30 03/28/17 23:30 Intake & Output 03/28/17 03/29/17 03/30/17 06:59 06:59 06:59 Intake Total 9490 1120 Output Total 5830 Balance 3660 1120 Weight 78.5 kg General appearance: PRESENT: no acute distress Head exam: PRESENT: normocephalic Respiratory exam: PRESENT: unlabored Cardiovascular exam: PRESENT: RRR Pulses: PRESENT: +1 pedal pulses bilateral Vascular exam: PRESENT: normal capillary refill GI/Abdominal exam: PRESENT: soft Rectal exam: PRESENT: deferred Extremities exam: PRESENT: other - Left hip orthosis in place. Underlying dressing without significant drainage. Results Laboratory Results: 03/29/17 04:38 03/29/17 04:38 03/29/17 03/29/17 04:38 04:38 WBC 6.8 RBC 3.21 L Hgb 10.3 L Hct 30.3 L MCV 94 MCH 32.0 MCHC 33.9 RDW 14.2 H Plt Count 165 Sodium 143.0 Potassium 5.1 H Chloride 105 Carbon Dioxide 22 Anion Gap 16 BUN 53 H D Creatinine 3.41 H Est GFR ( Amer) 22 L Est GFR (Non-Af Amer) 18 L Glucose 101 Calcium 8.3 L 03/24/17 03/24/17 03/27/17 16:55 16:55 05:52 Creatine Kinase 224 H CK-MB (CK-2) 2.59 Troponin I < 0.012 < 0.012 03/27/17 07:49 Creatine Kinase CK-MB (CK-2) Troponin I < 0.012 Impressions: Head CT 03/24/17 00:00 IMPRESSION: MILD CHRONIC CHANGES OF ATROPHY AND MICROVASCULAR ISCHEMIA. NO ACUTE PROCESS. EVIDENCE OF ACUTE STROKE: NO. Hip X-Ray 03/24/17 11:27 IMPRESSION: SEVERE DEGENERATIVE CHANGES IN THE LEFT HIP. DIFFICULT TO ASSESS FOR ACUTE FINDINGS. NO OTHER SIGNIFICANT FINDINGS. Lower Extremity CT 03/24/17 12:38 IMPRESSION: SEVERE DEGENERATIVE CHANGES OF THE LEFT HIP. NO ACUTE FRACTURE VISUALIZED. Chest X-Ray 03/24/17 19:33 IMPRESSION: NO ACUTE RADIOGRAPHIC FINDING IN THE CHEST. Pelvis X-Ray 03/27/17 10:31 IMPRESSION: Acetabular anchoring screws appear to be dorsal to the left innominate bone. Osteotomy along the left proximal femur greater trochanter without cerclage wires or anchoring hardware Renal Ultrasound 03/28/17 00:00 IMPRESSION: Very limited study. Right kidney without hydronephrosis. 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 Intraoperative findings of a component of anterior instability led to the application of a hip orthosis. Patient be mobilized with physical therapy and weightbearing as tolerated basis. (2) SHEYLA (acute kidney injury) Is this a current diagnosis for this admission?: Yes Plan: Patient with postoperative creatinines that have increased from 1.25-3.42. Removal of all medications including nonsteroidal anti-inflammatory medications that may be precipitating this along with judicious fluids. Postoperative hematocrit of 30.3%. - Time Time Spent with patient: 15-24 minutes Anticipated discharge: SNF Within: Other
[2017-03-29] MEDS ORDERED: BISACODYL 10 MG SUPP.RECT PR ONE (08:34)
[2017-03-29] MEDS ORDERED: NORMAL SALINE 1000 ML 1,000 ML IV PRN (09:14)
[2017-03-29] MEDS: ASPIRIN 81 MG TABLET, CHEWABLE PO SCH (10:03)
[2017-03-29] MEDS: LOSARTAN POTASSIUM 50 MG TABLET PO SCH (10:03)
[2017-03-29] MEDS: OXYCODONE HCL SR 10 MG TABLET PO SCH (10:03)
[2017-03-29] MEDS: CARVEDILOL 3.125 MG TABLET PO SCH ×2 (10:03→22:42)
--- NOTE | 2017-03-29 11:59 | RADIOLOGY REPORT (SQ) ---
EXAM DESCRIPTION: CT ABD/PELVIS NO ORAL OR IV COMPLETED DATE/TIME: 03/29/2017 11:43 am REASON FOR STUDY: acute renal failure COMPARISON: None. TECHNIQUE: CT scan of the abdomen and pelvis performed without intravenous or oral contrast. Images reviewed with lung, soft tissue, and bone windows. Reconstructed coronal and sagittal MPR images revi ewed. All images stored on PACS. All CT scanners at this facility use dose modulation, iterative reconstruction, and/or weight based d osing when appropriate to reduce radiation dose to as low as reasonably achievable (ALARA). [facility]: Dose Right [facility]: CareDose [facility]: Dose Right [facility]: Teradose 4D [facility]: Smart HedgeChatter RADIATION DOSE: CT Rad equipment meets quality standard of care and radiation dose reduction techniq ues were employed. CTDIvol: 22.7 mGy. DLP: 1238 mGy-cm.mGy. LIMITATIONS: None. FINDINGS: LOWER CHEST: There is a 3 mm nodule in the right lung on image 3 series 4. NON-CONTRASTED LIVER, SPLEEN, ADRENALS: Evaluation limited by lack of IV contrast. No identified sign ificant masses. PANCREAS: No masses. No peripancreatic inflammatory changes. GALLBLADDER: No identified stones by CT criteria. No inflammatory changes to suggest cholecystitis. RIGHT KIDNEY AND URETER: No suspicious masses. Assessment limited by lack of IV contrast. No signif icant calcifications. No hydronephrosis or hydroureter. LEFT KIDNEY AND URETER: No suspicious masses. Assessment limited by lack of IV contrast. No signifi cant calcifications. No hydronephrosis or hydroureter. AORTA AND RETROPERITONEUM: No aneurysm. No retroperitoneal masses or adenopathy. BOWEL AND PERITONEAL CAVITY: No obvious masses or inflammatory changes. No free fluid. APPENDIX: Normal. PELVIS, BLADDER, AND ABDOMINAL WALL:A catheter is present in the urinary bladder. Evaluation of the mid and lower pelvis is limited because of artifact from the hip arthroplasty. BONES: Left hip arthroplasty. Considerable thoracolumbar spondylosis. OTHER: No other significant finding. IMPRESSION: Nonspecific 3 mm right pulmonary nodule. Osseous findings as described. No acute urina ry pathology is appreciated. COMMENT: Quality ID # [id number]: Final reports with documentation of one or more dose reduction techniques (e.g., Automated exposure control, adjustment of the mA and/or kV according to patient size, use of iterative reconstruction technique) TECHNICAL DOCUMENTATION: JOB ID: [id number] [employer]- All Rights Reserved
--- NOTE | 2017-03-29 12:11 | PDOC PROGRESS REPORT ---
Subjective Progress Note for:: 03/29/17 Subjective:: Pt is seen resting in bed comfortably status post left total hip arthroplasty by Dr. Brown. Upon entering the room, the patient was found sleeping, but woke easily. He states that he is comfortable and not having pain to his left hip. He denies orbles, dizziness, chest pain, palpitations, dyspnea, orthopnea, and cough. He has no other questions or concerns today. Physical Exam Vital Signs: Temp Pulse Resp BP Pulse Ox 97.9 F 77 17 96/52 L 92 03/29/17 08:15 03/29/17 08:15 03/29/17 08:15 03/29/17 08:15 03/28/17 23:30 Intake & Output 03/28/17 03/29/17 03/30/17 06:59 06:59 06:59 Intake Total 9490 1360 Output Total 5830 Balance 3660 1360 Weight 78.5 kg 79 kg General appearance: PRESENT: no acute distress, well-developed, well-nourished, other - Overweight Head exam: PRESENT: atraumatic, normocephalic Eye exam: PRESENT: conjunctiva pink, EOMI, PERRLA. ABSENT: scleral icterus Ear exam: PRESENT: normal external ear exam Mouth exam: PRESENT: moist, tongue midline Teeth exam: PRESENT: poor dentation Neck exam: ABSENT: carotid bruit, JVD, lymphadenopathy, thyromegaly Respiratory exam: PRESENT: clear to auscultation ketty, symmetrical, unlabored. ABSENT: rales, rhonchi, wheezes Cardiovascular exam: PRESENT: RRR, +S1, +S2. ABSENT: diastolic murmur, rubs, systolic murmur, tachycardia Pulses: PRESENT: normal dorsalis pedis pul Vascular exam: PRESENT: normal capillary refill GI/Abdominal exam: PRESENT: normal bowel sounds, soft. ABSENT: distended, guarding, mass, organolmegaly, rebound, tenderness Rectal exam: PRESENT: deferred Extremities exam: ABSENT: calf tenderness, clubbing, full ROM - Hip brace in place, pedal edema Neurological exam: PRESENT: alert, awake, oriented to person, oriented to place , oriented to time, oriented to situation, CN II-XII grossly intact, other - Garbled speech. ABSENT: motor sensory deficit Psychiatric exam: PRESENT: appropriate affect, normal mood. ABSENT: homicidal ideation, suicidal ideation Skin exam: PRESENT: dry, intact - Surgical incision with clean dry dressing; woundl not visualized, warm. ABSENT: cyanosis, rash Results Laboratory Results: 03/29/17 04:38 03/29/17 04:38 03/29/17 03/29/17 04:38 04:38 WBC 6.8 RBC 3.21 L Hgb 10.3 L Hct 30.3 L MCV 94 MCH 32.0 MCHC 33.9 RDW 14.2 H Plt Count 165 Sodium 143.0 Potassium 5.1 H Chloride 105 Carbon Dioxide 22 Anion Gap 16 BUN 53 H D Creatinine 3.41 H Est GFR ( Amer) 22 L Est GFR (Non-Af Amer) 18 L Glucose 101 Calcium 8.3 L 03/24/17 03/24/17 03/27/17 16:55 16:55 05:52 Creatine Kinase 224 H CK-MB (CK-2) 2.59 Troponin I < 0.012 < 0.012 NT-Pro-B Natriuret Pep 03/27/17 03/29/17 07:49 04:38 Creatine Kinase CK-MB (CK-2) Troponin I < 0.012 NT-Pro-B Natriuret Pep 130 Impressions: Head CT 03/24/17 00:00 IMPRESSION: MILD CHRONIC CHANGES OF ATROPHY AND MICROVASCULAR ISCHEMIA. NO ACUTE PROCESS. EVIDENCE OF ACUTE STROKE: NO. Hip X-Ray 03/24/17 11:27 IMPRESSION: SEVERE DEGENERATIVE CHANGES IN THE LEFT HIP. DIFFICULT TO ASSESS FOR ACUTE FINDINGS. NO OTHER SIGNIFICANT FINDINGS. Lower Extremity CT 03/24/17 12:38 IMPRESSION: SEVERE DEGENERATIVE CHANGES OF THE LEFT HIP. NO ACUTE FRACTURE VISUALIZED. Chest X-Ray 03/24/17 19:33 IMPRESSION: NO ACUTE RADIOGRAPHIC FINDING IN THE CHEST. Pelvis X-Ray 03/27/17 10:31 IMPRESSION: Acetabular anchoring screws appear to be dorsal to the left innominate bone. Osteotomy along the left proximal femur greater trochanter without cerclage wires or anchoring hardware Renal Ultrasound 03/28/17 00:00 IMPRESSION: Very limited study. Right kidney without hydronephrosis. Nonvisualization left kidney and bladder Assessment & Plan - Diagnosis (1) Acute renal failure Is this a current diagnosis for this admission?: Yes Plan: Creatinine worsened today having increased by 200% overnight and now with hyperkalemia. (1.12--> 1.27--> 1.25-->1.43--> 3.41). The patient was initially treated with IV fluids for presumed prerenal because of the worsening creatinine. Yesterday, the patient's IV fluids were reduced as there was concern for fluid volume overload in the setting of CHF. The patient was noted to have rhonchi and crackles on exam there was no evidence of edema. Additionally, nursing noted that the patient appeared to have urinary frequency, hesitancy, and dribbling. He denied known history of BPH, however, this was centered to be a likely source of postrenal insufficiency. He was started on Flomax and a renal ultrasound was obtained. The ultrasound was unable to visualize the left kidney or bladder, the right kidney did not show evidence of hydronephrosis. All medications were reviewed for for toxic potential. A proBNP this morning is 130 and his lung sounds are now clear. Therefore, will resume IV fluid resuscitation. Will have the patient obtain a noncontrasted CT of the abdomen and pelvis to further evaluate for post regional causes and assess the left kidney. Dr. Pardo was contacted for consultation; his evaluation recommendations will be highly appreciated. (2) Uncontrolled hypertension Is this a current diagnosis for this admission?: Yes Plan: Improved today. Patient's echocardiogram reviewed; LVEF normal, mild to moderate diastolic dysfunction noted. Will add low-dose beta-madelin and continue ARB. 1- Continue Losartan 2- Start Coreg 3- Vasotec q 6 h prn 4- Cardiac diet 5- Appreciate Cardiology's recommendations (3) CHF (congestive heart failure) Qualifiers: Congestive heart failure type: unspecified congestive heart failure type Congestive heart failure chronicity: chronic Qualified Code(s): I50.9 - Heart failure, unspecified Is this a current diagnosis for this admission?: Yes Plan: Pt appears compensated; euvolemic and without orthopnea/dyspnea. Pt has required diuretics in the past; he has been receiving IV fluid hydration for treatment of SHEYLA and so will monitor closely for fluid volume overload. Echocardiogram completed; mild to moderate diastolic dysfunction with preserved ejection fraction. ProBNP 130 today 1- Cardiology following 2- Cardiac diet/daily weights; weight stable (4) Inability to ambulate due to left hip Is this a current diagnosis for this admission?: Yes Plan: Status post left hip arthroplasty by Dr. Stephanie postop day 1. 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 Pt now on ASA and Lipitor. (6) SHEYLA (acute kidney injury) Is this a current diagnosis for this admission?: Yes Plan: As above. - Time Time Spent with patient: 35 or more minutes Medications reviewed and adjusted accordingly: Yes - Inpatient Certification Medical Necessity: Failure to Improve With Outpatient Therapy, Need Close Monitoring Due to Risk of Patient Decompensation, Need For IV Fluids
--- NOTE | 2017-03-29 12:27 | PDOC PROGRESS REPORT ---
Subjective Progress Note for:: 03/26/17 - Fracture left hip/Dyspnea Subjective:: Awake alert without any particular discomfort Physical Exam Vital Signs: Temp Pulse Resp BP Pulse Ox 97.9 F 87 20 175/99 H 99 03/25/17 23:12 03/25/17 23:12 03/25/17 23:12 03/25/17 23:12 03/25/17 23:12 Intake & Output 03/25/17 03/26/17 03/27/17 06:59 06:59 06:59 Intake Total 370 243 Output Total 150 250 Balance 220 -7 General appearance: PRESENT: no acute distress, cooperative, disheveled, well- developed Head exam: PRESENT: atraumatic, normocephalic Eye exam: PRESENT: conjunctiva pale, EOMI, PERRLA Mouth exam: PRESENT: dry mucosa, neck supple, tongue midline Teeth exam: PRESENT: poor dentation Neck exam: ABSENT: carotid bruit, JVD, lymphadenopathy, thyromegaly Respiratory exam: PRESENT: decreased breath sounds, prolonged expiratory phas, rhonchi, symmetrical, unlabored, wheezes. ABSENT: accessory muscle use, chest wall tenderness, clear to auscultation ketty, crackles, rales, retraction, stridor , tachypnea Cardiovascular exam: PRESENT: RRR, +S1, +S2. ABSENT: clicks, gallop, irregular rhythm Pulses: PRESENT: normal radial pulses GI/Abdominal exam: PRESENT: normal bowel sounds, soft. ABSENT: distended, guarding, mass, organolmegaly, rebound, tenderness Extremities exam: PRESENT: pedal edema, tenderness. ABSENT: clubbing Musculoskeletal exam: PRESENT: deformity, tenderness Neurological exam: PRESENT: awake Skin exam: PRESENT: dry, warm Results Laboratory Results: 03/26/17 05:46 03/26/17 05:46 03/26/17 03/26/17 05:46 05:46 WBC 6.3 RBC 4.46 Hgb 13.9 Hct 41.2 MCV 92 MCH 31.3 MCHC 33.9 RDW 14.1 H Plt Count 187 Sodium 146.3 H Potassium 4.1 Chloride 106 Carbon Dioxide 28 Anion Gap 12 BUN 26 H Creatinine 1.27 H Est GFR ( Amer) > 60 Est GFR (Non-Af Amer) 57 L Glucose 106 Calcium 9.1 03/24/17 03/24/17 16:55 16:55 Creatine Kinase 224 H CK-MB (CK-2) 2.59 Troponin I < 0.012 Impressions: Head CT 03/24/17 00:00 IMPRESSION: MILD CHRONIC CHANGES OF ATROPHY AND MICROVASCULAR ISCHEMIA. NO ACUTE PROCESS. EVIDENCE OF ACUTE STROKE: NO. Hip X-Ray 03/24/17 11:27 IMPRESSION: SEVERE DEGENERATIVE CHANGES IN THE LEFT HIP. DIFFICULT TO ASSESS FOR ACUTE FINDINGS. NO OTHER SIGNIFICANT FINDINGS. Lower Extremity CT 03/24/17 12:38 IMPRESSION: SEVERE DEGENERATIVE CHANGES OF THE LEFT HIP. NO ACUTE FRACTURE VISUALIZED. Chest X-Ray 03/24/17 19:33 IMPRESSION: NO ACUTE RADIOGRAPHIC FINDING IN THE CHEST. Assessment & Plan - Diagnosis (1) Benign essential hypertension Is this a current diagnosis for this admission?: Yes Plan: Stable at this time but patient is not compliant with medical therapy (2) CHF (congestive heart failure) Qualifiers: Congestive heart failure type: unspecified congestive heart failure type Congestive heart failure chronicity: chronic Qualified Code(s): I50.9 - Heart failure, unspecified Is this a current diagnosis for this admission?: Yes Plan: stable at this time
--- NOTE | 2017-03-29 12:30 | PDOC PROGRESS REPORT ---
Subjective Progress Note for:: 03/29/17 - Left hip fracture/dyspnea Subjective:: Resting comfortably, denies discomfort Physical Exam Vital Signs: Temp Pulse Resp BP Pulse Ox 97.9 F 77 17 96/52 L 92 03/29/17 08:15 03/29/17 08:15 03/29/17 08:15 03/29/17 08:15 03/28/17 23:30 Intake & Output 03/28/17 03/29/17 03/30/17 06:59 06:59 06:59 Intake Total 9490 1360 Output Total 5830 Balance 3660 1360 Weight 78.5 kg 79 kg General appearance: PRESENT: no acute distress, disheveled, well-developed, well -nourished Head exam: PRESENT: atraumatic, normocephalic Eye exam: PRESENT: conjunctiva pale Mouth exam: PRESENT: dry mucosa, neck supple, tongue midline Teeth exam: PRESENT: poor dentation Neck exam: ABSENT: carotid bruit, JVD, lymphadenopathy, thyromegaly Respiratory exam: PRESENT: decreased breath sounds, prolonged expiratory phas, rhonchi, symmetrical, unlabored. ABSENT: accessory muscle use, chest wall tenderness, clear to auscultation ketty, crackles, rales, retraction, stridor, tachypnea Cardiovascular exam: PRESENT: RRR, +S1, +S2. ABSENT: clicks, gallop, irregular rhythm, tachycardia Pulses: ABSENT: normal radial pulses GI/Abdominal exam: PRESENT: normal bowel sounds, soft. ABSENT: distended, guarding, mass, organolmegaly, rebound, tenderness Extremities exam: ABSENT: calf tenderness, clubbing, pedal edema Musculoskeletal exam: PRESENT: tenderness. ABSENT: ambulatory Neurological exam: PRESENT: awake Psychiatric exam: PRESENT: flat affect Skin exam: PRESENT: dry, warm Results Laboratory Results: 03/29/17 04:38 03/29/17 04:38 03/29/17 03/29/17 04:38 04:38 WBC 6.8 RBC 3.21 L Hgb 10.3 L Hct 30.3 L MCV 94 MCH 32.0 MCHC 33.9 RDW 14.2 H Plt Count 165 Sodium 143.0 Potassium 5.1 H Chloride 105 Carbon Dioxide 22 Anion Gap 16 BUN 53 H D Creatinine 3.41 H Est GFR ( Amer) 22 L Est GFR (Non-Af Amer) 18 L Glucose 101 Calcium 8.3 L 03/24/17 03/24/17 03/27/17 16:55 16:55 05:52 Creatine Kinase 224 H CK-MB (CK-2) 2.59 Troponin I < 0.012 < 0.012 NT-Pro-B Natriuret Pep 03/27/17 03/29/17 07:49 04:38 Creatine Kinase CK-MB (CK-2) Troponin I < 0.012 NT-Pro-B Natriuret Pep 130 Impressions: Head CT 03/24/17 00:00 IMPRESSION: MILD CHRONIC CHANGES OF ATROPHY AND MICROVASCULAR ISCHEMIA. NO ACUTE PROCESS. EVIDENCE OF ACUTE STROKE: NO. Hip X-Ray 03/24/17 11:27 IMPRESSION: SEVERE DEGENERATIVE CHANGES IN THE LEFT HIP. DIFFICULT TO ASSESS FOR ACUTE FINDINGS. NO OTHER SIGNIFICANT FINDINGS. Lower Extremity CT 03/24/17 12:38 IMPRESSION: SEVERE DEGENERATIVE CHANGES OF THE LEFT HIP. NO ACUTE FRACTURE VISUALIZED. Chest X-Ray 03/24/17 19:33 IMPRESSION: NO ACUTE RADIOGRAPHIC FINDING IN THE CHEST. Pelvis X-Ray 03/27/17 10:31 IMPRESSION: Acetabular anchoring screws appear to be dorsal to the left innominate bone. Osteotomy along the left proximal femur greater trochanter without cerclage wires or anchoring hardware Renal Ultrasound 03/28/17 00:00 IMPRESSION: Very limited study. Right kidney without hydronephrosis. Nonvisualization left kidney and bladder Abdomen/Pelvis CT 03/29/17 00:00 IMPRESSION: Nonspecific 3 mm right pulmonary nodule. Osseous findings as described. No acute urinary pathology is appreciated. Assessment & Plan - Diagnosis (1) Benign essential hypertension Is this a current diagnosis for this admission?: Yes Plan: Stable at this time but patient is not compliant with medical therapy (2) CHF (congestive heart failure) Qualifiers: Congestive heart failure type: unspecified congestive heart failure type Congestive heart failure chronicity: chronic Qualified Code(s): I50.9 - Heart failure, unspecified Is this a current diagnosis for this admission?: Yes Plan: stable at this time,No current complaints of dyspnea sign off for now please do not hesitate to call if I can be of additional assistance
--- NOTE | 2017-03-29 15:11 | PDOC PROGRESS REPORT ---
Subjective Progress Note for:: 03/29/17 Subjective:: Patient is postop left hip surgery day 2. Patient however noted to be very lethargic. Lab work shows worsening renal function. 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 There is suspicion of possible CVA. I ordered that patient be placed on heart monitor.. He is laying comfortably and eating. Physical Exam Vital Signs: Temp Pulse Resp BP Pulse Ox 97.3 F 77 14 127/65 H 100 03/29/17 12:28 03/29/17 14:00 03/29/17 12:28 03/29/17 12:28 03/29/17 12:28 Intake & Output 03/28/17 03/29/17 03/30/17 06:59 06:59 06:59 Intake Total 9490 1360 0 Output Total 5830 150 Balance 3660 1360 -150 Weight 78.5 kg 79 kg Exam: GENERAL: well-nourished and in no acute distress. Patient is alert orientation cannot be checked because of lethargy. HEAD: Atraumatic, normocephalic. EYES: Pupils equal round and reactive to light, extraocular movements intact, sclera anicteric, conjunctiva are normal. ENT: TMs normal, nares patent, oropharynx clear without exudates. Moist mucous membranes. No oral ulcerations or bleeding gums noted NECK: supple without lymphadenopathy or JVD. Trachea is central. No cervical or axillary lymphadenopathy noted. Carotids are 2+ LUNGS: Breath sounds bibasilar fine crackles at bases. No significant dullness noted. CHEST: Palpation of chest wall shows no significant chest wall tenderness. HEART: [place] SCABBLER, No PSH, 2/6 OWEN aortic area, 1/6 richards systolic murmur mitral area, rubs or gallops. ABDOMEN: Soft, no significant tenderness appreciated, normoactive bowel sounds. No guarding, no rebound. No rigidity noted . No masses appreciated. EXTREMITIES: Pedal pulses are 1-2+, no calf tenderness noted, Trace + pedal edema noted. No clubbing or cyanosis. NEUROLOGICAL: Patient is alert but is not able to participate in neurological exam because of patient's current mental status. Patient in the past was noted to have difficulty with speech. PSYCH: Patient cannot participate in a neurologic and psych exam because of the patient's current mental status SKIN: No significant ecchymosis, rash, ulcerations or signs of pruritus noted. MUSCULOSKELETAL EXAM: No significant joint swelling noted. Status post left hip surgery changes. Patient on some orthopedic contraption to prevent dislocation of the recently fixed left hip. Results Laboratory Results: 03/29/17 04:38 03/29/17 04:38 03/29/17 03/29/17 04:38 04:38 WBC 6.8 RBC 3.21 L Hgb 10.3 L Hct 30.3 L MCV 94 MCH 32.0 MCHC 33.9 RDW 14.2 H Plt Count 165 Sodium 143.0 Potassium 5.1 H Chloride 105 Carbon Dioxide 22 Anion Gap 16 BUN 53 H D Creatinine 3.41 H Est GFR ( Amer) 22 L Est GFR (Non-Af Amer) 18 L Glucose 101 Calcium 8.3 L 03/24/17 03/24/17 03/27/17 16:55 16:55 05:52 Creatine Kinase 224 H CK-MB (CK-2) 2.59 Troponin I < 0.012 < 0.012 NT-Pro-B Natriuret Pep 03/27/17 03/29/17 07:49 04:38 Creatine Kinase CK-MB (CK-2) Troponin I < 0.012 NT-Pro-B Natriuret Pep 130 Impressions: Head CT 03/24/17 00:00 IMPRESSION: MILD CHRONIC CHANGES OF ATROPHY AND MICROVASCULAR ISCHEMIA. NO ACUTE PROCESS. EVIDENCE OF ACUTE STROKE: NO. Hip X-Ray 03/24/17 11:27 IMPRESSION: SEVERE DEGENERATIVE CHANGES IN THE LEFT HIP. DIFFICULT TO ASSESS FOR ACUTE FINDINGS. NO OTHER SIGNIFICANT FINDINGS. Lower Extremity CT 03/24/17 12:38 IMPRESSION: SEVERE DEGENERATIVE CHANGES OF THE LEFT HIP. NO ACUTE FRACTURE VISUALIZED. Chest X-Ray 03/24/17 19:33 IMPRESSION: NO ACUTE RADIOGRAPHIC FINDING IN THE CHEST. Pelvis X-Ray 03/27/17 10:31 IMPRESSION: Acetabular anchoring screws appear to be dorsal to the left innominate bone. Osteotomy along the left proximal femur greater trochanter without cerclage wires or anchoring hardware Renal Ultrasound 03/28/17 00:00 IMPRESSION: Very limited study. Right kidney without hydronephrosis. Nonvisualization left kidney and bladder Abdomen/Pelvis CT 03/29/17 00:00 IMPRESSION: Nonspecific 3 mm right pulmonary nodule. Osseous findings as described. No acute urinary pathology is appreciated. Assessment & Plan - Diagnosis (1) Benign essential hypertension Is this a current diagnosis for this admission?: Yes (2) CHF (congestive heart failure) Qualifiers: Congestive heart failure type: unspecified congestive heart failure type Congestive heart failure chronicity: chronic Qualified Code(s): I50.9 - Heart failure, unspecified Is this a current diagnosis for this admission?: Yes (3) Inability to ambulate due to left hip Is this a current diagnosis for this admission?: Yes (4) Non compliance with medical treatment Is this a current diagnosis for this admission?: Yes (5) Status post hip surgery Is this a current diagnosis for this admission?: Yes (6) Encephalopathy Is this a current diagnosis for this admission?: Yes (7) Acute renal failure Qualifiers: Acute renal failure type: unspecified Qualified Code(s): N17.9 - Acute kidney failure, unspecified Is this a current diagnosis for this admission?: Yes - Notes Notes: Patient noted to have some mental status changes. Possibly related to dehydration and worsening renal functions. Have recommended further evaluation by the hospitalist. Have also placed patient on a heart monitor to evaluate for any transient atrial fibrillation. Will follow orders by the hospitalist to look for new stroke. Patient has worsening renal function: Patient being seen by silk spotter. As regards patient underlying cardiac status seems stable. Patient has not ambulated much. Will continue to follow. - Time Time with patient: 15-25 minutes Medications reviewed and adjusted accordingly: Yes
--- NOTE | 2017-03-29 15:20 | PDOC CONSULTATION ---
Consultation Consult Date: 03/29/17 Consult reason:: SHEYLA History of Present Illness Admission Date/PCP: 03/24/17 15:03 History of Present Illness: Patient is a 56-year-old black male with a h/o Hypertension was admitted for Hip arthroplasty which he underwent on under spinal without any complications by Dr Brown. Currently he is lying in bed and in distress. However he is unable to answer or respond to any of my questions. There is apparently a possible h/o CVA in the past as discussions done with treating RN. According to her , he has been rather subdued and poorly responsive since this AM. But that said he was able to talk the other days and respond appropriately.He had a non contrasted CT brain on the which I reviewed showed chronic micro vascular changes and no evidence of rafael remote/recent CVA. I note that he has had a drop in Hb from 13+ to current 10 +. He also had atransient drop in BP on . He has not had a BM since the as per ALLYSON Kapoor.He currently has an indwelling Marin. Note high I's to O's.Reviewed recent ECHO.His meds were reviewed.Discussions were done with treating RNEmelia. The history I have here from previous physicians notes but I am unable to verify any as he is unable to coperate. "He denies shortness of breath with dips and exertion certainly his ability to exert himself is limited he does admit to occasional wheezing he denies a cough or hemoptysis He denies angina- like chest pain sleeps on 2 pillows occasional PND occasional nocturnal cough and frequent edema. He is unaware of any snoring restless sleep. He has multiple episodes of nocturia at night he has unrestful sleep as well as excessive daytime somnolence" Past Medical History Cardiac Medical History: Reports: Hypertension-primary EENT Medical History: Denies: Eyes, Throat Neurological Medical History: Denies: Multiple Sclerosis Endocrine Medical History: Denies: Obesity Renal/ Medical History: Denies: Nephrolithiasis Malignancy Medical History: Reports: None GI Medical History: Denies: Cirrhosis, Crohn's Disease, Diverticulitis, Gastroesophageal Reflux Disease, Ulcerative Colitis Musculoskeltal Medical History: Denies: Gout Skin Medical History: Denies: Eczema, Psoriasis Traumatic Medical History: Denies: Gunshot Wound, Pneumothorax Infectious Medical History: Denies: Hepatitis B, Hepatitis C Past Surgical History Past Surgical History: Reports: None Social History Lives with: Family Smoking Status: Former Smoker Frequency of Alcohol Use: None Hx Recreational Drug Use: No Drugs: None Hx Prescription Drug Abuse: No - Advance Directive Resuscitation Status: Full Code Family History Parental Family History Reviewed: No - Unable to reply. Children Family History Reviewed: No Sibling(s) Family History Reviewed.: No Medication/Allergy Home Medications: Furosemide [Lasix 20 mg Tablet] 20 mg PO QAM 03/24/17 Losartan Potassium [Cozaar 100 mg Tablet] 100 mg PO DAILY 03/24/17 Allergies/Adverse Reactions: No Known Allergies Allergy (Verified 06/26/16 14:36) Review of Systems Review of Systems: Unable to be obtained as ptn is aphasic. Physical Exam Vital Signs: Temp Pulse Resp BP Pulse Ox 97.3 F 77 14 127/65 H 100 03/29/17 12:28 03/29/17 14:00 03/29/17 12:28 03/29/17 12:28 03/29/17 12:28 Intake & Output 03/28/17 03/29/17 03/30/17 06:59 06:59 06:59 Intake Total 9490 1360 0 Output Total 5830 150 Balance 3660 1360 -150 Weight 78.5 kg 79 kg General appearance: PRESENT: no acute distress. ABSENT: cooperative Eye exam: PRESENT: EOMI. ABSENT: PERRLA Ear exam: PRESENT: normal external ear exam Teeth exam: PRESENT: dental caries, dental tenderness - right pupil is rather miotic to the left., edentulous, poor dentation, other Neck exam: ABSENT: lymphadenopathy, meningismus, tenderness, thyromegaly, tracheal deviation Respiratory exam: PRESENT: clear to auscultation ketty, symmetrical. ABSENT: crackles, wheezes Cardiovascular exam: PRESENT: +S1, +S2, systolic murmur GI/Abdominal exam: PRESENT: firm, normal bowel sounds. ABSENT: mass, organomegaly, tenderness Extremities exam: ABSENT: pedal edema Neurological exam: PRESENT: altered - and unable to respond or co operate with my q, other - Cog wheeling of left upper extremity and normal on the right. Psychiatric exam: PRESENT: flat affect Skin exam: PRESENT: mottled, warm. ABSENT: erythema, rash Results Laboratory Results: 03/29/17 04:38 03/29/17 04:38 03/29/17 03/29/17 04:38 04:38 WBC 6.8 RBC 3.21 L Hgb 10.3 L Hct 30.3 L MCV 94 MCH 32.0 MCHC 33.9 RDW 14.2 H Plt Count 165 Sodium 143.0 Potassium 5.1 H Chloride 105 Carbon Dioxide 22 Anion Gap 16 BUN 53 H D Creatinine 3.41 H Est GFR ( Amer) 22 L Est GFR (Non-Af Amer) 18 L Glucose 101 Calcium 8.3 L 03/24/17 03/24/17 03/27/17 16:55 16:55 05:52 Creatine Kinase 224 H CK-MB (CK-2) 2.59 Troponin I < 0.012 < 0.012 NT-Pro-B Natriuret Pep 03/27/17 03/29/17 07:49 04:38 Creatine Kinase CK-MB (CK-2) Troponin I < 0.012 NT-Pro-B Natriuret Pep 130 Impressions: Head CT 03/24/17 00:00 IMPRESSION: MILD CHRONIC CHANGES OF ATROPHY AND MICROVASCULAR ISCHEMIA. NO ACUTE PROCESS. EVIDENCE OF ACUTE STROKE: NO. Hip X-Ray 03/24/17 11:27 IMPRESSION: SEVERE DEGENERATIVE CHANGES IN THE LEFT HIP. DIFFICULT TO ASSESS FOR ACUTE FINDINGS. NO OTHER SIGNIFICANT FINDINGS. Lower Extremity CT 03/24/17 12:38 IMPRESSION: SEVERE DEGENERATIVE CHANGES OF THE LEFT HIP. NO ACUTE FRACTURE VISUALIZED. Chest X-Ray 03/24/17 19:33 IMPRESSION: NO ACUTE RADIOGRAPHIC FINDING IN THE CHEST. Pelvis X-Ray 03/27/17 10:31 IMPRESSION: Acetabular anchoring screws appear to be dorsal to the left innominate bone. Osteotomy along the left proximal femur greater trochanter without cerclage wires or anchoring hardware Renal Ultrasound 03/28/17 00:00 IMPRESSION: Very limited study. Right kidney without hydronephrosis. Nonvisualization left kidney and bladder Abdomen/Pelvis CT 03/29/17 00:00 IMPRESSION: Nonspecific 3 mm right pulmonary nodule. Osseous findings as described. No acute urinary pathology is appreciated. Assessment & Plan - Diagnosis (1) Anemia Plan: Drop from 13 + pre op to current 10 +. DD- Dilutional versus others. Will repeat a cbc now to monitor. Suggest PPIespecially since on Anti coag for prevention of stress ulcers and bleeding given his drop in Hb.No BM x 5 days. (2) Altered mental status Plan: His stat blood sugar was 80 and after an amp of D50 , he was more awake and responsive than the first time I saw him. He still has altered mental status. Had normal lft to begin with. ? drug related ie narcotics given the miotic pupil. ? is this parkinsonism. No evidence of recent or remote CVA, but then might need a non contrasted MRI to really evaluate. Would recommend that in light of unexplained findings. (3) SHEYLA (acute kidney injury) Is this a current diagnosis for this admission?: Yes Plan: ?Hypotension related ATN. No evidence of Post Renal issues and he has a marin in. Adequately hydrated.Cut back on NS. Stop losartan.Dose meds to gfr of 25 cc/ min. I am changing Xarelto to Eliquis renall adjusted.If thats inappropriate for ortho , please change as needed to a renally suited anti coag regimen.Will monitor. (4) Benign essential hypertension Is this a current diagnosis for this admission?: Yes Plan: Been stable for most periods but for a transient drop on the 23 rd. ? etiology. (5) CHF (congestive heart failure) Qualifiers: Congestive heart failure type: unspecified congestive heart failure type Congestive heart failure chronicity: chronic Qualified Code(s): I50.9 - Heart failure, unspecified Is this a current diagnosis for this admission?: Yes Plan: diastolic but stable . No signs of decompensation for now.Cut back NS. (6) Inability to ambulate due to left hip Is this a current diagnosis for this admission?: Yes Plan: s/p Left hip arthroplasty.Stable .
[2017-03-29 15:46] LABS: ABSOLUTE EOSINOPHILS # (AUTO) 0.1 10^3/uL (0.0-0.6); ABSOLUTE LYMPHOCYTES (AUTO) 1.2 10^3/uL (0.5-4.7); ABSOLUTE MONOCYTES (AUTO) 0.7 10^3/uL (0.1-1.4); ABSOLUTE NEUT (AUTO) 5.8 10^3/uL (1.7-8.2); BASOPHILS % (AUTO) 0.3 % (0-2); EOSINOPHILS % (AUTO) 1.3 % (0-6); HEMATOCRIT 32.1 % (37.9-51.0); HEMOGLOBIN 10.8 g/dL (13.5-17.0); HGB HCT DIFFERENCE 0.3; LYMPHOCYTES % (AUTO) 15.7 % (13-45); MEAN CORPUSCULAR HEMOGLOBIN 31.5 pg (27.0-33.4); MEAN CORPUSCULAR HGB CONC 33.6 g/dL (32.0-36.0); MEAN CORPUSCULAR VOLUME 94 fl (80-97); RED BLOOD COUNT 3.42 10^6/uL (4.35-5.55); RED CELL DISTRIBUTION WIDTH 14.2 % (11.5-14.0); SEGMENTED NEUTROPHILS % (AUTO) 73.7 % (42-78); WHITE BLOOD COUNT 7.9 10^3/uL (4.0-10.5)
[2017-03-29 16:00] LABS: ANION GAP 17 (5-19); BLOOD UREA NITROGEN 58 mg/dL (7-20); CALCIUM 8.4 mg/dL (8.4-10.2); CARBON DIOXIDE 23 mmol/L (22-30); CHLORIDE 105 mmol/L (98-107); CREATININE RESULT 3.79 mg/dL (0.52-1.25); GLUCOSE 78 mg/dL (75-110); POTASSIUM 4.9 mmol/L (3.6-5.0); SODIUM 144.8 mmol/L (137-145)
--- NOTE | 2017-03-29 16:12 | Progress Note ---
Provider Note Provider Note: Received a phone call from Dr. Pardo who was concerned about possibility of acute CVA versus metabolic encephalopathy. At time of dictation, stat CBC and CMP are pending. 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 On exam he is more lethargic as compared to yesterday, however, woke easily and was able to follow commands. Aside from his baseline right hemiplegia limiting movements and lethargy, his neuro exam was benign and CN II-XII were grossly intact. However, as the patient is on Xarelto for there is increased risk of hemorrhagic stroke and so he will receive a stat noncontrasted head CT. He will also receive ASA 81 mg. Nursing is updated on the plan of care and will preform q4 neuro checks. Dr. Franco was advised of patient's condition and came to the bedside to assist with evaluation and management.
[2017-03-29] MEDS ORDERED: ASPIRIN 81 MG TABLET, ENT COATED PO ONE (17:00)
[2017-03-29] MEDS ORDERED: ASPIRIN 81 MG TABLET, CHEWABLE PO ONE (17:00)
--- NOTE | 2017-03-29 17:01 | RADIOLOGY REPORT (SQ) ---
EXAM DESCRIPTION: CT HEAD WITHOUT COMPLETED DATE/TIME: 03/29/2017 4:49 pm REASON FOR STUDY: altered mental status COMPARISON: CT brain 03/24/2017 TECHNIQUE: Axial images acquired through the brain without intravenous contrast. Images reviewed wi th bone, brain and subdural windows. Images stored on PACS. All CT scanners at this facility use dose modulation, iterative reconstruction, and/or weight based d osing when appropriate to reduce radiation dose to as low as reasonably achievable (ALARA). [facility]: Dose Right [facility]: CareDose [facility]: Dose Right [facility]: Teradose 4D [facility]: [employer] RADIATION DOSE: CT Rad equipment meets quality standard of care and radiation dose reduction techniq ues were employed. CTDIvol: 64.6 mGy. DLP: 2430 mGy-cm. mGy. LIMITATIONS: Motion artifact throughout the study FINDINGS: Motion artifact throughout the study. No gross acute intracranial hemorrhage, mass effect , or midline shift. Extensive hemispheric white matter disease with multiple lacunar infarcts in the basal ganglia and th lyndsay. No gross skull fracture IMPRESSION: Motion artifact throughout the study. No gross acute intracranial hemorrhage, mass effe ct, or midline shift EVIDENCE OF ACUTE STROKE: NO. COMMENT: Quality ID # [id number]: Final reports with documentation of one or more dose reduction techniques (e.g., Automated exposure control, adjustment of the mA and/or kV according to patient size, use of iterative reconstruction technique) TECHNICAL DOCUMENTATION: JOB ID: [id number] [employer]- All Rights Reserved
[2017-03-29] MEDS: APIXABAN 2.5 MG TABLET PO SCH (17:58)
[2017-03-29] MEDS: TAMSULOSIN HCL 0.4 MG CAP.SR.24H PO SCH (17:58)
[2017-03-29] MEDS: NORMAL SALINE 1000 ML 1,000 ML IV PRN (18:00)
[2017-03-29] MEDS: ATORVASTATIN CALCIUM 10 MG TABLET PO SCH (22:42)
[2017-03-30] MEDS: LANSOPRAZOLE 30 MG TAB.RAP.DR PO SCH (05:23)
--- NOTE | 2017-03-30 06:49 | PDOC PROGRESS REPORT ---
Subjective Progress Note for:: 03/30/17 Subjective:: Patient less responsive this morning. Physical Exam Vital Signs: Temp Pulse Resp BP Pulse Ox 37.2 C 82 18 128/57 H 98 03/30/17 00:41 03/30/17 02:00 03/30/17 00:41 03/30/17 00:41 03/30/17 00:41 Intake & Output 03/28/17 03/29/17 03/30/17 06:59 06:59 06:59 Intake Total 9490 1360 800 Output Total 5830 150 Balance 3660 1360 650 Weight 78.5 kg 79 kg General appearance: PRESENT: no acute distress Head exam: PRESENT: normocephalic Respiratory exam: PRESENT: unlabored Cardiovascular exam: PRESENT: RRR Vascular exam: PRESENT: normal capillary refill GI/Abdominal exam: PRESENT: soft Extremities exam: PRESENT: other - Left hip dressing dry and intact. Hip orthosis in place. Results Laboratory Results: 03/29/17 15:30 03/29/17 15:30 03/29/17 03/29/17 15:30 15:30 WBC 7.9 RBC 3.42 L Hgb 10.8 L Hct 32.1 L MCV 94 MCH 31.5 MCHC 33.6 RDW 14.2 H Plt Count 204 Seg Neutrophils % 73.7 Lymphocytes % 15.7 Monocytes % 9.0 Eosinophils % 1.3 Basophils % 0.3 Absolute Neutrophils 5.8 Absolute Lymphocytes 1.2 Absolute Monocytes 0.7 Absolute Eosinophils 0.1 Absolute Basophils 0.0 Sodium 144.8 Potassium 4.9 Chloride 105 Carbon Dioxide 23 Anion Gap 17 BUN 58 H Creatinine 3.79 H Est GFR ( Amer) 20 L Est GFR (Non-Af Amer) 16 L Glucose 78 Calcium 8.4 03/24/17 03/24/17 03/27/17 16:55 16:55 05:52 Creatine Kinase 224 H CK-MB (CK-2) 2.59 Troponin I < 0.012 < 0.012 NT-Pro-B Natriuret Pep 03/27/17 03/29/17 07:49 04:38 Creatine Kinase CK-MB (CK-2) Troponin I < 0.012 NT-Pro-B Natriuret Pep 130 Impressions: Hip X-Ray 03/24/17 11:27 IMPRESSION: SEVERE DEGENERATIVE CHANGES IN THE LEFT HIP. DIFFICULT TO ASSESS FOR ACUTE FINDINGS. NO OTHER SIGNIFICANT FINDINGS. Lower Extremity CT 03/24/17 12:38 IMPRESSION: SEVERE DEGENERATIVE CHANGES OF THE LEFT HIP. NO ACUTE FRACTURE VISUALIZED. Chest X-Ray 03/24/17 19:33 IMPRESSION: NO ACUTE RADIOGRAPHIC FINDING IN THE CHEST. Pelvis X-Ray 03/27/17 10:31 IMPRESSION: Acetabular anchoring screws appear to be dorsal to the left innominate bone. Osteotomy along the left proximal femur greater trochanter without cerclage wires or anchoring hardware Renal Ultrasound 03/28/17 00:00 IMPRESSION: Very limited study. Right kidney without hydronephrosis. Nonvisualization left kidney and bladder Abdomen/Pelvis CT 03/29/17 00:00 IMPRESSION: Nonspecific 3 mm right pulmonary nodule. Osseous findings as described. No acute urinary pathology is appreciated. Head CT 03/29/17 00:00 IMPRESSION: Motion artifact throughout the study. No gross acute intracranial hemorrhage, mass effect, or midline shift EVIDENCE OF ACUTE STROKE: NO. Assessment & Plan - Diagnosis (1) Inability to ambulate due to left hip Is this a current diagnosis for this admission?: Yes Plan: Patient status post left hip arthroplasty. Events of yesterday precluded physical therapy. (2) SHEYLA (acute kidney injury) Is this a current diagnosis for this admission?: Yes Plan: Patient with decreased mental status and a creatinine that has increased to 3.79. Appreciate the events that occurred yesterday as well as a negative head and abdominal pelvic CT scans. - Time Time Spent with patient: 15-24 minutes Anticipated discharge: SNF Within: Other
[2017-03-30 07:02] LABS: HEMATOCRIT 26.7 % (37.9-51.0); HEMOGLOBIN 9.1 g/dL (13.5-17.0); HGB HCT DIFFERENCE 0.6; MEAN CORPUSCULAR HEMOGLOBIN 31.7 pg (27.0-33.4); MEAN CORPUSCULAR HGB CONC 34.1 g/dL (32.0-36.0); MEAN CORPUSCULAR VOLUME 93 fl (80-97); RED BLOOD COUNT 2.87 10^6/uL (4.35-5.55); RED CELL DISTRIBUTION WIDTH 14.3 % (11.5-14.0); WHITE BLOOD COUNT 6.9 10^3/uL (4.0-10.5)
[2017-03-30 07:18] LABS: ANION GAP 14 (5-19); BLOOD UREA NITROGEN 69 mg/dL (7-20); CALCIUM 7.8 mg/dL (8.4-10.2); CARBON DIOXIDE 19 mmol/L (22-30); CHLORIDE 110 mmol/L (98-107); GLUCOSE 89 mg/dL (75-110); POTASSIUM 4.8 mmol/L (3.6-5.0); SODIUM 142.5 mmol/L (137-145)
[2017-03-30] MEDS: APIXABAN 2.5 MG TABLET PO SCH ×2 (09:12→17:48)
[2017-03-30] MEDS: ASPIRIN 81 MG TABLET, CHEWABLE PO SCH (09:12)
[2017-03-30] MEDS: CARVEDILOL 3.125 MG TABLET PO SCH ×2 (09:12→21:32)
[2017-03-30 10:07] LABS: ARTERIAL BLOOD BASE EXCESS -4.5 mmol/L; ARTERIAL BLOOD O2 SATURATION 95.3 % (94-98)
[2017-03-30 11:30] LABS: ALANINE AMINOTRANSFERASE 64 U/L (21-72); ALBUMIN 3.1 g/dL (3.5-5.0); ALKALINE PHOSPHATASE 41 U/L (38-126); ASPARTATE AMINO TRANSFERASE 87 U/L (17-59); BILIRUBIN,DIRECT 0.5 mg/dL (0.0-0.4); BILIRUBIN,TOTAL 0.7 mg/dL (0.2-1.3); TOTAL PROTEIN 5.7 g/dL (6.3-8.2)
[2017-03-30] MEDS ORDERED: NALOXONE HCL INJ/PF 0.4 MG/1 ML SDV ONE (13:33)
[2017-03-30] MEDS: NORMAL SALINE 1000 ML 1,000 ML IV PRN (13:40)
--- NOTE | 2017-03-30 15:21 | PDOC PROGRESS REPORT ---
Subjective Progress Note for:: 03/30/17 Subjective:: Pt is seen resting in bed status post left total hip arthroplasty by Dr. Brown. The patient is noted to be somnolent with minimal response to name call and gentle shake. He does withdraw from pain and attempted to push me away during a sternal rub, but otherwise does not answer questions or follow commands. Per nursing he has not been awake for them or followed directions since midday yesterday. Physical Exam Vital Signs: Temp Pulse Resp BP Pulse Ox 97.8 F 115 H 18 100/80 98 03/30/17 11:32 03/30/17 14:00 03/30/17 11:32 03/30/17 11:32 03/30/17 11:32 Intake & Output 03/29/17 03/30/17 03/31/17 06:59 06:59 06:59 Intake Total 1360 2087 Output Total 550 Balance 1360 1537 Weight 79 kg 75.1 kg General appearance: PRESENT: no acute distress, well-developed, well-nourished, other - Overweight Head exam: PRESENT: atraumatic, normocephalic Eye exam: PRESENT: conjunctiva pink, EOMI, PERRLA. ABSENT: scleral icterus Ear exam: PRESENT: normal external ear exam Mouth exam: PRESENT: moist, tongue midline Neck exam: ABSENT: carotid bruit, JVD, lymphadenopathy, thyromegaly Respiratory exam: PRESENT: clear to auscultation ketty, symmetrical, unlabored. ABSENT: rales, rhonchi, wheezes Cardiovascular exam: PRESENT: RRR, +S1, +S2. ABSENT: diastolic murmur, rubs, systolic murmur Pulses: PRESENT: normal dorsalis pedis pul Vascular exam: PRESENT: normal capillary refill GI/Abdominal exam: PRESENT: normal bowel sounds, soft. ABSENT: distended, guarding, mass, organolmegaly, rebound, tenderness Rectal exam: PRESENT: deferred Extremities exam: PRESENT: full ROM. ABSENT: calf tenderness, clubbing, pedal edema Neurological exam: PRESENT: other - Somnolent, withdraws to pain, and otherwise is nonresponsive.. ABSENT: alert, awake, motor sensory deficit Psychiatric exam: ABSENT: homicidal ideation, suicidal ideation Skin exam: PRESENT: dry, intact - Surgical incision to left hip not directly visualized; dressing is clean dry and intact., warm. ABSENT: cyanosis, rash Results Laboratory Results: 03/30/17 06:41 03/30/17 06:41 03/29/17 03/29/17 03/30/17 15:30 15:30 06:41 WBC 7.9 6.9 RBC 3.42 L 2.87 L Hgb 10.8 L 9.1 L Hct 32.1 L 26.7 L MCV 94 93 MCH 31.5 31.7 MCHC 33.6 34.1 RDW 14.2 H 14.3 H Plt Count 204 126 L Seg Neutrophils % 73.7 Lymphocytes % 15.7 Monocytes % 9.0 Eosinophils % 1.3 Basophils % 0.3 Absolute Neutrophils 5.8 Absolute Lymphocytes 1.2 Absolute Monocytes 0.7 Absolute Eosinophils 0.1 Absolute Basophils 0.0 Carbonic Acid HCO3/H2CO3 Ratio ABG pH ABG pCO2 ABG pO2 ABG HCO3 ABG O2 Saturation ABG Base Excess FiO2 Sodium 144.8 Potassium 4.9 Chloride 105 Carbon Dioxide 23 Anion Gap 17 BUN 58 H Creatinine 3.79 H Est GFR ( Amer) 20 L Est GFR (Non-Af Amer) 16 L Glucose 78 Calcium 8.4 Total Bilirubin AST ALT Alkaline Phosphatase Ammonia Total Protein Albumin 03/30/17 03/30/17 03/30/17 06:41 09:49 11:00 WBC RBC Hgb Hct MCV MCH MCHC RDW Plt Count Seg Neutrophils % Lymphocytes % Monocytes % Eosinophils % Basophils % Absolute Neutrophils Absolute Lymphocytes Absolute Monocytes Absolute Eosinophils Absolute Basophils Carbonic Acid 1.21 HCO3/H2CO3 Ratio 17:1 ABG pH 7.34 L ABG pCO2 40.1 ABG pO2 81.1 ABG HCO3 21.0 ABG O2 Saturation 95.3 ABG Base Excess -4.5 FiO2 ROOM AIR Sodium 142.5 Potassium 4.8 Chloride 110 H Carbon Dioxide 19 L Anion Gap 14 BUN 69 H Creatinine 3.60 H Est GFR ( Amer) 21 L Est GFR (Non-Af Amer) 17 L Glucose 89 Calcium 7.8 L Total Bilirubin 0.7 AST 87 H ALT 64 Alkaline Phosphatase 41 Ammonia Total Protein 5.7 L Albumin 3.1 L 03/30/17 11:00 WBC RBC Hgb Hct MCV MCH MCHC RDW Plt Count Seg Neutrophils % Lymphocytes % Monocytes % Eosinophils % Basophils % Absolute Neutrophils Absolute Lymphocytes Absolute Monocytes Absolute Eosinophils Absolute Basophils Carbonic Acid HCO3/H2CO3 Ratio ABG pH ABG pCO2 ABG pO2 ABG HCO3 ABG O2 Saturation ABG Base Excess FiO2 Sodium Potassium Chloride Carbon Dioxide Anion Gap BUN Creatinine Est GFR ( Amer) Est GFR (Non-Af Amer) Glucose Calcium Total Bilirubin AST ALT Alkaline Phosphatase Ammonia < 8.7 L Total Protein Albumin 03/24/17 03/24/17 03/27/17 16:55 16:55 05:52 Creatine Kinase 224 H CK-MB (CK-2) 2.59 Troponin I < 0.012 < 0.012 NT-Pro-B Natriuret Pep 03/27/17 03/29/17 07:49 04:38 Creatine Kinase CK-MB (CK-2) Troponin I < 0.012 NT-Pro-B Natriuret Pep 130 Impressions: Hip X-Ray 03/24/17 11:27 IMPRESSION: SEVERE DEGENERATIVE CHANGES IN THE LEFT HIP. DIFFICULT TO ASSESS FOR ACUTE FINDINGS. NO OTHER SIGNIFICANT FINDINGS. Lower Extremity CT 03/24/17 12:38 IMPRESSION: SEVERE DEGENERATIVE CHANGES OF THE LEFT HIP. NO ACUTE FRACTURE VISUALIZED. Chest X-Ray 03/24/17 19:33 IMPRESSION: NO ACUTE RADIOGRAPHIC FINDING IN THE CHEST. Pelvis X-Ray 03/27/17 10:31 IMPRESSION: Acetabular anchoring screws appear to be dorsal to the left innominate bone. Osteotomy along the left proximal femur greater trochanter without cerclage wires or anchoring hardware Renal Ultrasound 03/28/17 00:00 IMPRESSION: Very limited study. Right kidney without hydronephrosis. Nonvisualization left kidney and bladder Abdomen/Pelvis CT 03/29/17 00:00 IMPRESSION: Nonspecific 3 mm right pulmonary nodule. Osseous findings as described. No acute urinary pathology is appreciated. Head CT 03/29/17 00:00 IMPRESSION: Motion artifact throughout the study. No gross acute intracranial hemorrhage, mass effect, or midline shift EVIDENCE OF ACUTE STROKE: NO. Assessment & Plan - Diagnosis (1) Encephalopathy Is this a current diagnosis for this admission?: Yes Plan: Secondary to narcotic medications. Patient was noted to have decreased mental alertness yesterday. I received a call from Dr. Pardo was concerned about possibility of acute CVA versus metabolic encephalopathy. On repeat exam, patient was noted to be lethargic, however was arousable and capable of following simple commands. Stat CBC and CMP were obtained as well as a stat noncontrasted head CT to rule out hemorrhagic stroke as the patient has been anticoagulated on Xarelto. Laboratory workup was unrevealing for a source of his cephalopathy and CT was negative for any gross acute intracranial hemorrhage, mass-effect, or midline shift. 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 This morning, the patient was noted to have a further decrease in his alertness and was only responsive to sternal rub. His LFTs and ammonia level were obtained and grossly normal. Although his last pain medication administration was nearly 48 hours ago, he was administered Narcan x1 with resulting improvements in mentation. His is now awake but drowsy and appropriately responding to questions. (2) Acute renal failure Is this a current diagnosis for this admission?: Yes Plan: Creatinine has slightly improved and hyperkalemia has resolved. The patient was initially treated with IV fluids for presumed prerenal cause, however, did not improve and so was evaluated for post renal causes and empirically started on Flomax despite an unknown hx of BPH as nursing reported urinary frequency, hesitancy, and dribbling. A renal ultrasound was unable to visualize the left kidney or bladder, the right kidney did not show evidence of hydronephrosis. This was followed up with a noncontrasted abdomen and pelvis CT which did not demonstrate any acute renal pathologies. All medications were reviewed for for toxic potential and he was continued on maintenance IV fluids. Dr. Pardo was contacted for consultation; his evaluation recommendations will be highly appreciated. (3) Uncontrolled hypertension Is this a current diagnosis for this admission?: Yes Plan: Improved. Patient's echocardiogram reviewed; LVEF normal, mild to moderate diastolic dysfunction noted. Will add low-dose beta-madelin and continue ARB. 1- Continue Losartan 2- Start Coreg 3- Vasotec q 6 h prn 4- Cardiac diet 5- Appreciate Cardiology's recommendations (4) CHF (congestive heart failure) Qualifiers: Congestive heart failure type: unspecified congestive heart failure type Congestive heart failure chronicity: chronic Qualified Code(s): I50.9 - Heart failure, unspecified Is this a current diagnosis for this admission?: Yes Plan: Pt appears compensated; euvolemic and without orthopnea/dyspnea. Pt has required diuretics in the past; he has been receiving IV fluid hydration for treatment of SHEYLA and so will monitor closely for fluid volume overload. Echocardiogram completed; mild to moderate diastolic dysfunction with preserved ejection fraction. ProBNP 130 1- Cardiology following 2- Cardiac diet/daily weights; weight stable (5) Inability to ambulate due to left hip Is this a current diagnosis for this admission?: Yes Plan: Status post left hip arthroplasty by Dr. Brown. Will need to avoid narcotic pain medications and agreed to renal function and accidental overdose resulting in encephalopathy. Anticipate SNF for short term rehab at discharge. 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 Pt now on ASA and Lipitor. (7) SHEYLA (acute kidney injury) Is this a current diagnosis for this admission?: Yes Plan: As above. - Time Time Spent with patient: 35 or more minutes Medications reviewed and adjusted accordingly: Yes
--- NOTE | 2017-03-30 16:47 | PDOC PROGRESS REPORT ---
Subjective Progress Note for:: 03/30/17 Subjective:: Patient is postop left hip surgery day 3. Patient however noted to be very lethargic. Lab work shows worsening renal function. Automatic Pinsetter Mechanic following the patient. Patient seems to have encephalopathy. Mental status may be slight bit better than yesterday. I ordered that patient be placed on heart monitor. Physical Exam Vital Signs: Temp Pulse Resp BP Pulse Ox 97.8 F 115 H 18 100/80 98 03/30/17 11:32 03/30/17 14:00 03/30/17 11:32 03/30/17 11:32 03/30/17 11:32 Intake & Output 03/29/17 03/30/17 03/31/17 06:59 06:59 06:59 Intake Total 1360 2087 Output Total 550 Balance 1360 1537 Weight 79 kg 75.1 kg Exam: GENERAL: well-nourished and in no acute distress. Patient is alert orientation cannot be checked because of lethargy. HEAD: Atraumatic, normocephalic. EYES: Pupils equal round and reactive to light, extraocular movements intact, sclera anicteric, conjunctiva are normal. ENT: TMs normal, nares patent, oropharynx clear without exudates. Moist mucous membranes. No oral ulcerations or bleeding gums noted NECK: supple without lymphadenopathy or JVD. Trachea is central. No cervical or axillary lymphadenopathy noted. Carotids are 2+ LUNGS: Breath sounds bibasilar fine crackles at bases. No significant dullness noted. CHEST: Palpation of chest wall shows no significant chest wall tenderness. 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 ABDOMEN: Soft, no significant tenderness appreciated, normoactive bowel sounds. No guarding, no rebound. No rigidity noted . No masses appreciated. EXTREMITIES: Pedal pulses are 1-2+, no calf tenderness noted, Trace + pedal edema noted. No clubbing or cyanosis. NEUROLOGICAL: Patient is alert but is not able to participate in neurological exam because of patient's current mental status. Patient in the past was noted to have difficulty with speech. PSYCH: Patient cannot participate in a neurologic and psych exam because of the patient's current mental status SKIN: No significant ecchymosis, rash, ulcerations or signs of pruritus noted. MUSCULOSKELETAL EXAM: No significant joint swelling noted. Status post left hip surgery changes. Patient on some orthopedic contraption to prevent dislocation of the recently fixed left hip. Results Laboratory Results: 03/30/17 06:41 03/30/17 06:41 03/30/17 03/30/17 03/30/17 06:41 06:41 09:49 WBC 6.9 RBC 2.87 L Hgb 9.1 L Hct 26.7 L MCV 93 MCH 31.7 MCHC 34.1 RDW 14.3 H Plt Count 126 L Carbonic Acid 1.21 HCO3/H2CO3 Ratio 17:1 ABG pH 7.34 L ABG pCO2 40.1 ABG pO2 81.1 ABG HCO3 21.0 ABG O2 Saturation 95.3 ABG Base Excess -4.5 FiO2 ROOM AIR Sodium 142.5 Potassium 4.8 Chloride 110 H Carbon Dioxide 19 L Anion Gap 14 BUN 69 H Creatinine 3.60 H Est GFR ( Amer) 21 L Est GFR (Non-Af Amer) 17 L Glucose 89 Calcium 7.8 L Total Bilirubin AST ALT Alkaline Phosphatase Ammonia Total Protein Albumin 03/30/17 03/30/17 11:00 11:00 WBC RBC Hgb Hct MCV MCH MCHC RDW Plt Count Carbonic Acid HCO3/H2CO3 Ratio ABG pH ABG pCO2 ABG pO2 ABG HCO3 ABG O2 Saturation ABG Base Excess FiO2 Sodium Potassium Chloride Carbon Dioxide Anion Gap BUN Creatinine Est GFR ( Amer) Est GFR (Non-Af Amer) Glucose Calcium Total Bilirubin 0.7 AST 87 H ALT 64 Alkaline Phosphatase 41 Ammonia < 8.7 L Total Protein 5.7 L Albumin 3.1 L 03/24/17 03/24/17 03/27/17 16:55 16:55 05:52 Creatine Kinase 224 H CK-MB (CK-2) 2.59 Troponin I < 0.012 < 0.012 NT-Pro-B Natriuret Pep 03/27/17 03/29/17 07:49 04:38 Creatine Kinase CK-MB (CK-2) Troponin I < 0.012 NT-Pro-B Natriuret Pep 130 Impressions: Hip X-Ray 03/24/17 11:27 IMPRESSION: SEVERE DEGENERATIVE CHANGES IN THE LEFT HIP. DIFFICULT TO ASSESS FOR ACUTE FINDINGS. NO OTHER SIGNIFICANT FINDINGS. Lower Extremity CT 03/24/17 12:38 IMPRESSION: SEVERE DEGENERATIVE CHANGES OF THE LEFT HIP. NO ACUTE FRACTURE VISUALIZED. Chest X-Ray 03/24/17 19:33 IMPRESSION: NO ACUTE RADIOGRAPHIC FINDING IN THE CHEST. Pelvis X-Ray 03/27/17 10:31 IMPRESSION: Acetabular anchoring screws appear to be dorsal to the left innominate bone. Osteotomy along the left proximal femur greater trochanter without cerclage wires or anchoring hardware Renal Ultrasound 03/28/17 00:00 IMPRESSION: Very limited study. Right kidney without hydronephrosis. Nonvisualization left kidney and bladder Abdomen/Pelvis CT 03/29/17 00:00 IMPRESSION: Nonspecific 3 mm right pulmonary nodule. Osseous findings as described. No acute urinary pathology is appreciated. Head CT 03/29/17 00:00 IMPRESSION: Motion artifact throughout the study. No gross acute intracranial hemorrhage, mass effect, or midline shift EVIDENCE OF ACUTE STROKE: NO. Assessment & Plan - Diagnosis (1) Benign essential hypertension Is this a current diagnosis for this admission?: Yes (2) CHF (congestive heart failure) Qualifiers: Congestive heart failure type: unspecified congestive heart failure type Congestive heart failure chronicity: chronic Qualified Code(s): I50.9 - Heart failure, unspecified Is this a current diagnosis for this admission?: Yes (3) Inability to ambulate due to left hip Is this a current diagnosis for this admission?: Yes (4) Non compliance with medical treatment Is this a current diagnosis for this admission?: Yes (5) Status post hip surgery Is this a current diagnosis for this admission?: Yes (6) Encephalopathy Is this a current diagnosis for this admission?: Yes (7) Acute renal failure Qualifiers: Acute renal failure type: unspecified Qualified Code(s): N17.9 - Acute kidney failure, unspecified Is this a current diagnosis for this admission?: Yes - Notes Notes: Patient has not been ambulated because of mental status changes. He remains lethargic. Will follow 1 more day for any improvement in his mental status. Patient remains generally ill but stable from cardiac standpoint. Telemetry strips were reviewed. He is noted to have sinus rhythm. His main problem seems to be an encephalopathy at this time with worsening renal function. At this point will recommend maintaining vitals. - Time Time with patient: 15-25 minutes Medications reviewed and adjusted accordingly: Yes
[2017-03-30] MEDS: TAMSULOSIN HCL 0.4 MG CAP.SR.24H PO SCH (17:48)
[2017-03-30] MEDS: ATORVASTATIN CALCIUM 10 MG TABLET PO SCH (21:32)
[2017-03-31] MEDS: LANSOPRAZOLE 30 MG TAB.RAP.DR PO SCH (06:20)
[2017-03-31 07:04] LABS: HEMATOCRIT 24.4 % (37.9-51.0); HEMOGLOBIN 8.5 g/dL (13.5-17.0); HGB HCT DIFFERENCE 1.1; MEAN CORPUSCULAR HEMOGLOBIN 32.4 pg (27.0-33.4); MEAN CORPUSCULAR HGB CONC 34.9 g/dL (32.0-36.0); MEAN CORPUSCULAR VOLUME 93 fl (80-97); RED BLOOD COUNT 2.64 10^6/uL (4.35-5.55); RED CELL DISTRIBUTION WIDTH 14.1 % (11.5-14.0)
[2017-03-31 07:32] LABS: ANION GAP 12 (5-19); CALCIUM 8.2 mg/dL (8.4-10.2); CARBON DIOXIDE 22 mmol/L (22-30); CHLORIDE 115 mmol/L (98-107); CREATININE RESULT 1.55 mg/dL (0.52-1.25); GLUCOSE 98 mg/dL (75-110); POTASSIUM 3.9 mmol/L (3.6-5.0); SODIUM 148.6 mmol/L (137-145)
[2017-03-31 07:43] LABS: BLOOD UREA NITROGEN 44 mg/dL (7-20)
[2017-03-31] MEDS ORDERED: 1/2 NORMAL SALINE 1,000 ML IV PRN ×3 (07:49→10:41)
[2017-03-31] MEDS ORDERED: NA PHOS,M-B/NA PHOS,DI-BA (ADULT) 133 ML ENEMA PR ONE (09:00)
[2017-03-31] MEDS ORDERED: LIDOCAINE 5% (700 MG) TRANSDERMAL ADH..PATCH TP ONE (09:30)
[2017-03-31] MEDS: CARVEDILOL 3.125 MG TABLET PO SCH ×2 (11:01→21:45)
[2017-03-31] MEDS: ASPIRIN 81 MG TABLET, CHEWABLE PO SCH (11:01)
[2017-03-31] MEDS: APIXABAN 2.5 MG TABLET PO SCH ×2 (11:02→18:06)
--- NOTE | 2017-03-31 12:35 | PDOC PROGRESS REPORT ---
Subjective Progress Note for:: 03/31/17 Subjective:: Pt is seen resting in bed comfortably. He is noted to be awake and alert; making eye contact with me when I enter the room. He appears to attempt to answer questions, however, is non-verbal. He does follow commands and is fully participatory in brief neuro exam. Per nursing, he was able to eat breakfast this morning with assistance. He does not appear to be in pain or any acute distress. Physical Exam Vital Signs: Temp Pulse Resp BP Pulse Ox 97.8 F 92 14 177/94 H 95 03/31/17 07:31 03/31/17 07:31 03/31/17 07:31 03/31/17 07:31 03/31/17 07:31 Intake & Output 03/30/17 03/31/17 04/01/17 06:59 06:59 06:59 Intake Total 2087 2275 Output Total 550 2960 Balance 1537 -685 Weight 75.1 kg 76.2 kg General appearance: PRESENT: no acute distress, well-developed, well-nourished, other - overweight Head exam: PRESENT: atraumatic, normocephalic Eye exam: PRESENT: conjunctiva pink, EOMI, PERRLA. ABSENT: scleral icterus Ear exam: PRESENT: normal external ear exam Mouth exam: PRESENT: moist, tongue midline Neck exam: ABSENT: carotid bruit, JVD, lymphadenopathy, thyromegaly Respiratory exam: PRESENT: clear to auscultation ketty, symmetrical, unlabored. ABSENT: rales, rhonchi, wheezes Cardiovascular exam: PRESENT: RRR, +S1, +S2. ABSENT: diastolic murmur, rubs, systolic murmur Pulses: PRESENT: normal dorsalis pedis pul Vascular exam: PRESENT: normal capillary refill GI/Abdominal exam: PRESENT: normal bowel sounds, soft. ABSENT: distended, guarding, mass, organolmegaly, rebound, tenderness Rectal exam: PRESENT: deferred Extremities exam: ABSENT: calf tenderness, clubbing, full ROM - LROM 2/2 recent Lt hip arthroplasty w/ hip brace in place, pedal edema Neurological exam: PRESENT: alert, awake, CN II-XII grossly intact, aphasic. ABSENT: motor sensory deficit Psychiatric exam: PRESENT: appropriate affect, normal mood. ABSENT: homicidal ideation, suicidal ideation Skin exam: PRESENT: dry, intact, warm. ABSENT: cyanosis, rash Results Laboratory Results: 03/31/17 06:41 03/31/17 06:41 03/31/17 03/31/17 06:41 06:41 WBC 7.0 RBC 2.64 L Hgb 8.5 L Hct 24.4 L MCV 93 MCH 32.4 MCHC 34.9 RDW 14.1 H Plt Count 198 Sodium 148.6 H Potassium 3.9 Chloride 115 H Carbon Dioxide 22 Anion Gap 12 BUN 44 H D Creatinine 1.55 H Est GFR ( Amer) 55 L Est GFR (Non-Af Amer) 45 L Glucose 98 Calcium 8.2 L 03/24/17 03/24/17 03/27/17 16:55 16:55 05:52 Creatine Kinase 224 H CK-MB (CK-2) 2.59 Troponin I < 0.012 < 0.012 NT-Pro-B Natriuret Pep 03/27/17 03/29/17 07:49 04:38 Creatine Kinase CK-MB (CK-2) Troponin I < 0.012 NT-Pro-B Natriuret Pep 130 Impressions: Hip X-Ray 03/24/17 11:27 IMPRESSION: SEVERE DEGENERATIVE CHANGES IN THE LEFT HIP. DIFFICULT TO ASSESS FOR ACUTE FINDINGS. NO OTHER SIGNIFICANT FINDINGS. Lower Extremity CT 03/24/17 12:38 IMPRESSION: SEVERE DEGENERATIVE CHANGES OF THE LEFT HIP. NO ACUTE FRACTURE VISUALIZED. Chest X-Ray 03/24/17 19:33 IMPRESSION: NO ACUTE RADIOGRAPHIC FINDING IN THE CHEST. Pelvis X-Ray 03/27/17 10:31 IMPRESSION: Acetabular anchoring screws appear to be dorsal to the left innominate bone. Osteotomy along the left proximal femur greater trochanter without cerclage wires or anchoring hardware Renal Ultrasound 03/28/17 00:00 IMPRESSION: Very limited study. Right kidney without hydronephrosis. Nonvisualization left kidney and bladder Abdomen/Pelvis CT 03/29/17 00:00 IMPRESSION: Nonspecific 3 mm right pulmonary nodule. Osseous findings as described. No acute urinary pathology is appreciated. Head CT 03/29/17 00:00 IMPRESSION: Motion artifact throughout the study. No gross acute intracranial hemorrhage, mass effect, or midline shift EVIDENCE OF ACUTE STROKE: NO. Assessment & Plan - Diagnosis (1) Encephalopathy Is this a current diagnosis for this admission?: Yes Plan: Improving, presumed to be secondary to narcotic medications as mentation improved following 1 dose of Narcan yesterday. Patient was noted to have decreased mental alertness yesterday. I received a call from Dr. Pardo was concerned about possibility of acute CVA versus metabolic encephalopathy. On repeat exam, patient was noted to be lethargic, however was arousable and capable of following simple commands. Stat CBC and CMP were obtained as well as a stat noncontrasted head CT to rule out hemorrhagic stroke as the patient has been anticoagulated on Xarelto. Laboratory workup was unrevealing for a source of his cephalopathy and CT was negative for any gross acute intracranial hemorrhage, mass-effect, or midline shift. 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 His LFTs and ammonia level were obtained and grossly normal. We will avoid narcotic and other sedating medications. Supportive care to be provided with fall and aspiration precautions, supplemental oxygen as needed to keep oxygen saturations greater than 90%. We will continue to monitor and anticipate gradual improvement towards patient's baseline. At this time, I do not believe that the patient has had an acute stroke. (2) Acute renal failure Qualifiers: Acute renal failure type: unspecified Qualified Code(s): N17.9 - Acute kidney failure, unspecified Is this a current diagnosis for this admission?: Yes Plan: Likely ATN r/t IV ibuprofen and vancomycin use. Continues to improve, creatinine has trended down from its peak of 3.79 to 1.55 this morning. Hyperkalemia has resolved. The patient was initially treated with IV fluids for presumed prerenal cause, however, did not improve and so was evaluated for post renal causes and empirically started on Flomax despite an unknown hx of BPH as nursing reported urinary frequency, hesitancy, and dribbling. A renal ultrasound was unable to visualize the left kidney or bladder, the right kidney did not show evidence of hydronephrosis. This was followed up with a noncontrasted abdomen and pelvis CT which did not demonstrate any acute renal pathologies. All medications were reviewed for for toxic potential and he was continued on maintenance IV fluids. Dr. Pardo was contacted for consultation; his evaluation recommendations will be highly appreciated. (3) Uncontrolled hypertension Is this a current diagnosis for this admission?: Yes Plan: Slightly elevated today as the patient has been able to take his p.o hypertension medications for the last 2 days. Will resume p.o. medications today. Patient's echocardiogram reviewed; LVEF normal, mild to moderate diastolic dysfunction noted. Will add low-dose beta-madelin and continue ARB. 1- Continue Losartan 2- Start Coreg 3- Vasotec q 6 h prn 4- Cardiac diet 5- Appreciate Cardiology's recommendations (4) CHF (congestive heart failure) Qualifiers: Congestive heart failure type: unspecified congestive heart failure type Congestive heart failure chronicity: chronic Qualified Code(s): I50.9 - Heart failure, unspecified Is this a current diagnosis for this admission?: Yes Plan: Pt appears compensated; euvolemic and without orthopnea/dyspnea. Pt has required diuretics in the past; he has been receiving IV fluid hydration for treatment of SHEYLA and so will monitor closely for fluid volume overload. Echocardiogram completed; mild to moderate diastolic dysfunction with preserved ejection fraction. ProBNP 130 1- Cardiology has signed off 2- Cardiac diet/daily weights; weight stable (5) Inability to ambulate due to left hip Is this a current diagnosis for this admission?: Yes Plan: Status post left hip arthroplasty by Dr. Brown. Will need to avoid narcotic pain medications and agreed to renal function and accidental overdose resulting in encephalopathy. Anticipate SNF for short term rehab at discharge. 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 Pt now on ASA and Lipitor. (7) SHEYLA (acute kidney injury) Is this a current diagnosis for this admission?: Yes Plan: As above. (8) Constipation Is this a current diagnosis for this admission?: Yes Plan: No improvement with ducolax suppository yesterday; will advance to Fleets enema today. - Time Time Spent with patient: 25-34 minutes Medications reviewed and adjusted accordingly: Yes - Inpatient Certification Based on my medical assessment, after consideration of the patient's comorbidities, presenting symptoms, or acuity I expect that the services needed warrant INPATIENT care.: Yes I certify that my determination is in accordance with my understanding of Medicare's requirements for reasonable and necessary INPATIENT services [42 CFR 412.3e].: Yes Medical Necessity: Need Close Monitoring Due to Risk of Patient Decompensation, Need For IV Fluids
[2017-03-31] MEDS ORDERED: LACTULOSE SYRUP 20 GM/30 ML UDCUP PO ONE (16:15)
[2017-03-31] MEDS: TAMSULOSIN HCL 0.4 MG CAP.SR.24H PO SCH (18:05)
--- NOTE | 2017-03-31 20:17 | PDOC PROGRESS REPORT ---
Subjective Progress Note for:: 03/31/17 Subjective:: Patient is postop left hip surgery day 4. Patient however noted to be very much improved and is more communicative. Nurse tells me that his improvement happened after he received Narcan. [employer] Fertility Extension Specialist following the patient. Patient seems to have metabolic encephalopathy, worsened with pain medication. Mental status may be significantly better than yesterday. Telemetry strips reviewed showed patient maintaining sinus rhythm without any sustained tachycardia or bradycardia arrhythmia. Occasional ectopics are noted.. Physical Exam Vital Signs: Temp Pulse Resp BP Pulse Ox 97.6 F 90 16 161/91 H 94 03/31/17 15:48 03/31/17 15:48 03/31/17 15:48 03/31/17 15:48 03/31/17 15:48 Intake & Output 03/30/17 03/31/17 04/01/17 06:59 06:59 06:59 Intake Total 2087 2275 1115 Output Total 550 2960 600 Balance 1537 -685 515 Weight 75.1 kg 76.2 kg Exam: GENERAL: well-nourished and in no acute distress. Patient is alert orientation cannot be checked because of speech difficulty. He is however following commands appropriately. HEAD: Atraumatic, normocephalic. EYES: Pupils equal round and reactive to light, extraocular movements intact, sclera anicteric, conjunctiva are normal. ENT: TMs normal, nares patent, oropharynx clear without exudates. Moist mucous membranes. No oral ulcerations or bleeding gums noted NECK: supple without lymphadenopathy or JVD. Trachea is central. No cervical or axillary lymphadenopathy noted. Carotids are 2+ LUNGS: Breath sounds bibasilar fine crackles at bases. No significant dullness noted. CHEST: Palpation of chest wall shows no significant chest wall tenderness. 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 ABDOMEN: Soft, no significant tenderness appreciated, normoactive bowel sounds. No guarding, no rebound. No rigidity noted . No masses appreciated. EXTREMITIES: Pedal pulses are 1-2+, no calf tenderness noted, Trace + pedal edema noted. No clubbing or cyanosis. NEUROLOGICAL: Patient is alert and is able to follow commands. Some chronic right upper extremity weakness noted. Patient in the past was noted to have difficulty with speech. PSYCH: Patient cannot participate in a neurologic and psych exam because of the patient's current mental status SKIN: No significant ecchymosis, rash, ulcerations or signs of pruritus noted. MUSCULOSKELETAL EXAM: No significant joint swelling noted. Status post left hip surgery changes. Orthopedic contraption was off today. Results Laboratory Results: 03/31/17 06:41 03/31/17 06:41 03/31/17 03/31/17 06:41 06:41 WBC 7.0 RBC 2.64 L Hgb 8.5 L Hct 24.4 L MCV 93 MCH 32.4 MCHC 34.9 RDW 14.1 H Plt Count 198 Sodium 148.6 H Potassium 3.9 Chloride 115 H Carbon Dioxide 22 Anion Gap 12 BUN 44 H D Creatinine 1.55 H Est GFR ( Amer) 55 L Est GFR (Non-Af Amer) 45 L Glucose 98 Calcium 8.2 L 03/24/17 03/24/17 03/27/17 16:55 16:55 05:52 Creatine Kinase 224 H CK-MB (CK-2) 2.59 Troponin I < 0.012 < 0.012 NT-Pro-B Natriuret Pep 03/27/17 03/29/17 07:49 04:38 Creatine Kinase CK-MB (CK-2) Troponin I < 0.012 NT-Pro-B Natriuret Pep 130 EKG Comments: Sinus rhythm without any sustained tachycardia or bradycardia arrhythmias. Impressions: Hip X-Ray 03/24/17 11:27 IMPRESSION: SEVERE DEGENERATIVE CHANGES IN THE LEFT HIP. DIFFICULT TO ASSESS FOR ACUTE FINDINGS. NO OTHER SIGNIFICANT FINDINGS. Lower Extremity CT 03/24/17 12:38 IMPRESSION: SEVERE DEGENERATIVE CHANGES OF THE LEFT HIP. NO ACUTE FRACTURE VISUALIZED. Chest X-Ray 03/24/17 19:33 IMPRESSION: NO ACUTE RADIOGRAPHIC FINDING IN THE CHEST. Pelvis X-Ray 03/27/17 10:31 IMPRESSION: Acetabular anchoring screws appear to be dorsal to the left innominate bone. Osteotomy along the left proximal femur greater trochanter without cerclage wires or anchoring hardware Renal Ultrasound 03/28/17 00:00 IMPRESSION: Very limited study. Right kidney without hydronephrosis. Nonvisualization left kidney and bladder Abdomen/Pelvis CT 03/29/17 00:00 IMPRESSION: Nonspecific 3 mm right pulmonary nodule. Osseous findings as described. No acute urinary pathology is appreciated. Head CT 03/29/17 00:00 IMPRESSION: Motion artifact throughout the study. No gross acute intracranial hemorrhage, mass effect, or midline shift EVIDENCE OF ACUTE STROKE: NO. Assessment & Plan - Diagnosis (1) Benign essential hypertension Is this a current diagnosis for this admission?: Yes (2) CHF (congestive heart failure) Qualifiers: Congestive heart failure type: unspecified congestive heart failure type Congestive heart failure chronicity: chronic Qualified Code(s): I50.9 - Heart failure, unspecified Is this a current diagnosis for this admission?: Yes (3) Inability to ambulate due to left hip Is this a current diagnosis for this admission?: Yes (4) Non compliance with medical treatment Is this a current diagnosis for this admission?: Yes (5) Status post hip surgery Is this a current diagnosis for this admission?: Yes (6) Encephalopathy Is this a current diagnosis for this admission?: Yes (7) Acute renal failure Qualifiers: Acute renal failure type: unspecified Qualified Code(s): N17.9 - Acute kidney failure, unspecified Is this a current diagnosis for this admission?: Yes - Notes Notes: Renal functions have improved significantly. Patient's sodium is up, possibly represent free water loss. Patient mental status has significantly improved. CHF seems compensated. Hypertension is well controlled. Acute renal failure has improved. At this point will sign off. Please reconsult if needed. - Time Time with patient: 15-25 minutes - CODE STATUS was discussed, patient remains full code. Surrogate decision-maker unchanged. Multiple medical problems were addressed. More than 50% of the time spent coordinating care, discussing management plans with involved caregivers. Management plans discussed with involved personnels. Medical decision making was of moderate to high complexity , patient's has multiple comorbidities. Medications reviewed and adjusted accordingly: Yes
[2017-03-31] MEDS: ATORVASTATIN CALCIUM 10 MG TABLET PO SCH (21:45)
[2017-04-01] MEDS: LANSOPRAZOLE 30 MG TAB.RAP.DR PO SCH (05:40)
[2017-04-01 06:51] LABS: HEMATOCRIT 23.6 % (37.9-51.0); HEMOGLOBIN 8.2 g/dL (13.5-17.0); MEAN CORPUSCULAR HEMOGLOBIN 32.1 pg (27.0-33.4); MEAN CORPUSCULAR HGB CONC 34.7 g/dL (32.0-36.0); MEAN CORPUSCULAR VOLUME 92 fl (80-97); RED BLOOD COUNT 2.56 10^6/uL (4.35-5.55); WHITE BLOOD COUNT 7.7 10^3/uL (4.0-10.5)
[2017-04-01 07:23] LABS: ANION GAP 13 (5-19); BLOOD UREA NITROGEN 31 mg/dL (7-20); CALCIUM 8.3 mg/dL (8.4-10.2); CARBON DIOXIDE 22 mmol/L (22-30); CHLORIDE 114 mmol/L (98-107); CREATININE RESULT 1.05 mg/dL (0.52-1.25); GLUCOSE 100 mg/dL (75-110); POTASSIUM 3.7 mmol/L (3.6-5.0); SODIUM 148.6 mmol/L (137-145)
[2017-04-01] MEDS ORDERED: NALOXONE HCL INJ/PF 0.4 MG/1 ML SDV IV ONE (08:10)
[2017-04-01] MEDS ORDERED: LACTULOSE SYRUP 20 GM/30 ML UDCUP PO ONE (08:15)
[2017-04-01] MEDS ORDERED: BISACODYL 10 MG SUPP.RECT PR ONE (08:15)
[2017-04-01] MEDS: APIXABAN 2.5 MG TABLET PO SCH ×2 (09:38→17:59)
[2017-04-01] MEDS: ASPIRIN 81 MG TABLET, CHEWABLE PO SCH (09:38)
[2017-04-01] MEDS: CARVEDILOL 3.125 MG TABLET PO SCH ×2 (09:38→23:12)
--- NOTE | 2017-04-01 12:00 | PDOC PROGRESS REPORT ---
Subjective Progress Note for:: 04/01/17 Subjective:: Pt is seen resting in bed comfortably. He is noted to be awake and alert; making eye contact with me. He appears to attempt to answer questions, however , does not actually open mouth fully or make focal sounds. He does follow commands and is fully participatory in brief neuro exam. No significant improvement in mental status as compared to yesterday. He does not appear to be in pain or any acute distress. Physical Exam Vital Signs: Temp Pulse Resp BP Pulse Ox 98.3 F 101 H 20 161/82 H 97 04/01/17 08:20 04/01/17 08:20 04/01/17 08:20 04/01/17 08:20 04/01/17 08:20 Intake & Output 03/31/17 04/01/17 04/02/17 06:59 06:59 06:59 Intake Total 2275 2845 Output Total 2960 1200 Balance -685 1645 Weight 76.2 kg 76.2 kg General appearance: PRESENT: no acute distress, well-developed, well-nourished Head exam: PRESENT: atraumatic, normocephalic Eye exam: PRESENT: conjunctiva pink, EOMI, PERRLA. ABSENT: scleral icterus Ear exam: PRESENT: normal external ear exam Mouth exam: PRESENT: moist, tongue midline Neck exam: ABSENT: carotid bruit, JVD, lymphadenopathy, thyromegaly Respiratory exam: PRESENT: clear to auscultation ketty, symmetrical, unlabored. ABSENT: rales, rhonchi, wheezes Cardiovascular exam: PRESENT: RRR, +S1, +S2. ABSENT: diastolic murmur, rubs, systolic murmur Pulses: PRESENT: normal dorsalis pedis pul Vascular exam: PRESENT: normal capillary refill GI/Abdominal exam: PRESENT: normal bowel sounds, soft. ABSENT: distended, guarding, mass, organolmegaly, rebound, tenderness Rectal exam: PRESENT: deferred Extremities exam: PRESENT: tenderness - Left hip status post arthroplasty, other - Historic contracture to right hand. 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 ABSENT: motor sensory deficit Psychiatric exam: PRESENT: appropriate affect, normal mood. ABSENT: homicidal ideation, suicidal ideation Skin exam: PRESENT: dry, intact, warm. ABSENT: cyanosis, rash Results Laboratory Results: 04/01/17 06:21 04/01/17 06:21 04/01/17 04/01/17 06:21 06:21 WBC 7.7 RBC 2.56 L Hgb 8.2 L Hct 23.6 L MCV 92 MCH 32.1 MCHC 34.7 RDW 14.0 Plt Count 213 Sodium 148.6 H Potassium 3.7 Chloride 114 H Carbon Dioxide 22 Anion Gap 13 BUN 31 H Creatinine 1.05 Est GFR ( Amer) > 60 Est GFR (Non-Af Amer) > 60 Glucose 100 Calcium 8.3 L 03/24/17 03/24/17 03/27/17 16:55 16:55 05:52 Creatine Kinase 224 H CK-MB (CK-2) 2.59 Troponin I < 0.012 < 0.012 NT-Pro-B Natriuret Pep 03/27/17 03/29/17 07:49 04:38 Creatine Kinase CK-MB (CK-2) Troponin I < 0.012 NT-Pro-B Natriuret Pep 130 Impressions: Hip X-Ray 03/24/17 11:27 IMPRESSION: SEVERE DEGENERATIVE CHANGES IN THE LEFT HIP. DIFFICULT TO ASSESS FOR ACUTE FINDINGS. NO OTHER SIGNIFICANT FINDINGS. Lower Extremity CT 03/24/17 12:38 IMPRESSION: SEVERE DEGENERATIVE CHANGES OF THE LEFT HIP. NO ACUTE FRACTURE VISUALIZED. Chest X-Ray 03/24/17 19:33 IMPRESSION: NO ACUTE RADIOGRAPHIC FINDING IN THE CHEST. Pelvis X-Ray 03/27/17 10:31 IMPRESSION: Acetabular anchoring screws appear to be dorsal to the left innominate bone. Osteotomy along the left proximal femur greater trochanter without cerclage wires or anchoring hardware Renal Ultrasound 03/28/17 00:00 IMPRESSION: Very limited study. Right kidney without hydronephrosis. Nonvisualization left kidney and bladder Abdomen/Pelvis CT 03/29/17 00:00 IMPRESSION: Nonspecific 3 mm right pulmonary nodule. Osseous findings as described. No acute urinary pathology is appreciated. Head CT 03/29/17 00:00 IMPRESSION: Motion artifact throughout the study. No gross acute intracranial hemorrhage, mass effect, or midline shift EVIDENCE OF ACUTE STROKE: NO. Assessment & Plan - Diagnosis (1) Encephalopathy Is this a current diagnosis for this admission?: Yes Plan: Improved, though not at baseline. Presumed to be secondary to narcotic medications as mentation improved following 1 dose of Narcan, however the patient has yet to return to his baseline mental status 24 hours later. As he has not continued to improve, will obtain a brain MRI to evaluate for infarct CVA that was not visualized on previous head CT. There was concern about possibility of acute CVA versus metabolic encephalopathy. On repeat exam, patient was noted to be lethargic, however was arousable and capable of following simple commands. Stat CBC and CMP were obtained as well as a stat noncontrasted head CT to rule out hemorrhagic stroke as the patient has been anticoagulated on Xarelto. Laboratory workup was unrevealing for a source of his cephalopathy and CT was negative for any gross acute intracranial hemorrhage, mass-effect, or midline shift. 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 His LFTs and ammonia level were obtained and grossly normal. Continue to avoid narcotic and other sedating medications. Supportive care to be provided with fall and aspiration precautions, supplemental oxygen as needed to keep oxygen saturations greater than 90%. Patient does have a bed offer from [facility], however, due to his continued altered mental status he is not ready for discharge at this time. (2) Acute renal failure Qualifiers: Acute renal failure type: unspecified Qualified Code(s): N17.9 - Acute kidney failure, unspecified Is this a current diagnosis for this admission?: Yes Plan: Resolved. Likely ATN r/t IV ibuprofen and vancomycin use. Continues to improve, creatinine has trended down from its peak of 3.79 to 1.05 this morning. Hyperkalemia has resolved. The patient was initially treated with IV fluids for presumed prerenal cause, however, did not improve and so was evaluated for post renal causes and empirically started on Flomax despite an unknown hx of BPH as nursing reported urinary frequency, hesitancy, and dribbling. A renal ultrasound was unable to visualize the left kidney or bladder, the right kidney did not show evidence of hydronephrosis. This was followed up with a noncontrasted abdomen and pelvis CT which did not demonstrate any acute renal pathologies. All medications were reviewed for for toxic potential and he was continued on maintenance IV fluids. Dr. Pardo was contacted for consultation; his evaluation recommendations will be highly appreciated. (3) Uncontrolled hypertension Is this a current diagnosis for this admission?: Yes Plan: Slightly elevated today, stable. Will resume p.o. medications today. Patient's echocardiogram reviewed; LVEF normal, mild to moderate diastolic dysfunction noted. Will add low-dose beta-madelin and continue ARB. 1- Continue Losartan 2- Start Coreg 3- Vasotec q 6 h prn 4- Cardiac diet 5- Appreciated Cardiology's recommendations (4) CHF (congestive heart failure) Qualifiers: Congestive heart failure type: unspecified congestive heart failure type Congestive heart failure chronicity: chronic Qualified Code(s): I50.9 - Heart failure, unspecified Is this a current diagnosis for this admission?: Yes Plan: Pt appears compensated; euvolemic and without orthopnea/dyspnea. Pt has required diuretics in the past; he has been receiving IV fluid hydration for treatment of SHEYLA and so will monitor closely for fluid volume overload. Echocardiogram completed; mild to moderate diastolic dysfunction with preserved ejection fraction. ProBNP 130 1- Cardiology has signed off 2- Cardiac diet/daily weights; weight stable (5) Inability to ambulate due to left hip Is this a current diagnosis for this admission?: Yes Plan: Status post left hip arthroplasty by Dr. Brown. Will need to avoid narcotic pain medications and agreed to renal function and accidental overdose resulting in encephalopathy. Cleared by orthopedics for discharge, will require SNF. (6) Speech abnormality Qualifiers: Speech disturbance type: unspecified speech disturbance Qualified Code(s): R47.9 - Unspecified speech disturbances Is this a current diagnosis for this admission?: Yes Plan: Significantly worsened; concern for CVA versus metabolic encephalopathy. Will be evaluated today with a brain MRI. Chronic; presumed to be r/t previous CVA. Pt now on ASA and Lipitor. (7) SHEYLA (acute kidney injury) Is this a current diagnosis for this admission?: Yes Plan: As above. (8) Constipation Is this a current diagnosis for this admission?: Yes Plan: No improvement with ducolax suppository yesterday; will advance to Fleets enema and p.o. lactulose today. (9) Anemia Is this a current diagnosis for this admission?: Yes Plan: Acute blood loss anemia status post left hip arthroplasty. Hemoglobin trending down from 13.7-8.2; now stable as hemoglobin was 8.5 yesterday. He is otherwise hemodynamically stable. We will continue to monitor and transfuse for hemoglobin less than 8. - Time Time Spent with patient: 35 or more minutes Medications reviewed and adjusted accordingly: Yes Anticipated discharge: SNF
[2017-04-01] MEDS ORDERED: ONDANSETRON HCL INJ/PF 4 MG/2 ML SDV IV PRN (15:30)
[2017-04-01] MEDS ORDERED: MAG HYDROX/AL HYDROX/SIMETH SUSP 30 ML UDCUP PO PRN (15:30)
[2017-04-01] MEDS ORDERED: ONDANSETRON 4 MG TAB.RAPDIS PO PRN (15:30)
--- NOTE | 2017-04-01 16:22 | PDOC PROGRESS REPORT ---
Subjective Progress Note for:: 04/01/17 Subjective:: Patient was seen laying in bed alert to his surroundings. He was not talking at the time, but was giving me answers with head nods. According to nursing staff he has progressively been getting worse to the point of showing little to no emotion. He is not a diabetic but according to Dr. Pardo's note on the he did require D50 to become less altered. An MRI of his brain was recently done, results are still pending. He is able to follow commands. Reason For Visit: LEFT HIP FRACTURE Physical Exam Vital Signs: Temp Pulse Resp BP Pulse Ox 98.3 F 81 20 161/82 H 97 04/01/17 08:20 04/01/17 14:00 04/01/17 08:20 04/01/17 08:20 04/01/17 08:20 Intake & Output 03/31/17 04/01/17 04/02/17 06:59 06:59 06:59 Intake Total 2275 2845 Output Total 2960 1200 Balance -685 1645 Weight 76.2 kg 76.2 kg General appearance: PRESENT: no acute distress, well-developed, well-nourished Head exam: PRESENT: atraumatic, normocephalic Eye exam: PRESENT: PERRLA. ABSENT: scleral icterus Mouth exam: PRESENT: moist, tongue midline Neck exam: PRESENT: full ROM. ABSENT: JVD Respiratory exam: PRESENT: clear to auscultation ketty. ABSENT: accessory muscle use, crackles, rales, tachypnea, wheezes Cardiovascular exam: PRESENT: +S1, +S2, systolic murmur GI/Abdominal exam: PRESENT: firm, normal bowel sounds. ABSENT: mass, organomegaly, tenderness Extremities exam: ABSENT: joint swelling, pedal edema, tenderness Musculoskeletal exam: PRESENT: normal inspection. ABSENT: deformity, tenderness Neurological exam: PRESENT: alert, awake, oriented to person, oriented to place , oriented to time, oriented to situation Skin exam: PRESENT: dry, intact, warm Results Laboratory Results: 04/01/17 06:21 04/01/17 06:21 04/01/17 04/01/17 06:21 06:21 WBC 7.7 RBC 2.56 L Hgb 8.2 L Hct 23.6 L MCV 92 MCH 32.1 MCHC 34.7 RDW 14.0 Plt Count 213 Sodium 148.6 H Potassium 3.7 Chloride 114 H Carbon Dioxide 22 Anion Gap 13 BUN 31 H Creatinine 1.05 Est GFR ( Amer) > 60 Est GFR (Non-Af Amer) > 60 Glucose 100 Calcium 8.3 L 03/24/17 03/24/17 03/27/17 16:55 16:55 05:52 Creatine Kinase 224 H CK-MB (CK-2) 2.59 Troponin I < 0.012 < 0.012 NT-Pro-B Natriuret Pep 03/27/17 03/29/17 07:49 04:38 Creatine Kinase CK-MB (CK-2) Troponin I < 0.012 NT-Pro-B Natriuret Pep 130 Impressions: Hip X-Ray 03/24/17 11:27 IMPRESSION: SEVERE DEGENERATIVE CHANGES IN THE LEFT HIP. DIFFICULT TO ASSESS FOR ACUTE FINDINGS. NO OTHER SIGNIFICANT FINDINGS. Lower Extremity CT 03/24/17 12:38 IMPRESSION: SEVERE DEGENERATIVE CHANGES OF THE LEFT HIP. NO ACUTE FRACTURE VISUALIZED. Chest X-Ray 03/24/17 19:33 IMPRESSION: NO ACUTE RADIOGRAPHIC FINDING IN THE CHEST. Pelvis X-Ray 03/27/17 10:31 IMPRESSION: Acetabular anchoring screws appear to be dorsal to the left innominate bone. Osteotomy along the left proximal femur greater trochanter without cerclage wires or anchoring hardware Renal Ultrasound 03/28/17 00:00 IMPRESSION: Very limited study. Right kidney without hydronephrosis. Nonvisualization left kidney and bladder Abdomen/Pelvis CT 03/29/17 00:00 IMPRESSION: Nonspecific 3 mm right pulmonary nodule. Osseous findings as described. No acute urinary pathology is appreciated. Head CT 03/29/17 00:00 IMPRESSION: Motion artifact throughout the study. No gross acute intracranial hemorrhage, mass effect, or midline shift EVIDENCE OF ACUTE STROKE: NO. Assessment & Plan - Diagnosis (1) Anemia Plan: Patients hemoglobin continues to drop, may have possible source of bleeding. Patient is unable to answer questions if he sees any blood in his stools. may be bleeding into recent surgical site. Anemia is not due to kidney disease (2) Altered mental status Plan: Recommend checking blood sugar. Awaiting MRI results (3) SHEYLA (acute kidney injury) Is this a current diagnosis for this admission?: Yes Plan: resolved, recommend following up with Dr. Pardo as outpatient in two weeks (4) Benign essential hypertension Is this a current diagnosis for this admission?: Yes Plan: recommend increasing carvedilol to 6.25mg bid (5) Inability to ambulate due to left hip Is this a current diagnosis for this admission?: Yes Plan: currently stable
--- NOTE | 2017-04-01 16:45 | RADIOLOGY REPORT (SQ) ---
EXAM DESCRIPTION: MRI HEAD WITHOUT COMPLETED DATE/TIME: 04/01/2017 2:40 pm REASON FOR STUDY: altered mental status COMPARISON: CT brain 03/24/2017, 03/29/2017 TECHNIQUE: Multiplanar imaging includes non-contrasted T1, T2, FLAIR, and diffusion with ADC map seq uences. Images stored on PACS. LIMITATIONS: Motion artifact on some of the pulse sequences FINDINGS: ANATOMY: No development anomalies. Normal vascular flow voids. Pituitary fossa normal. CSF SPACES: Normal in size and contour. No hemorrhage. CEREBRUM: Chronic appearing extensive white matter disease is present on FLAIR/ T2 with diffuse incre ased signal in the deep hemispheric white matter in the bifrontal, biparietal, and bitemporal regions . There are multiple chronic appearing small foci of encephalomalacia in the deep periventricular white matter along the bifrontal and biparietal regions, and along the left temporal lobe. Diffusion-weighted images today are positive for multiple small white matter lesions in the bifrontal and biparietal regions, with a more focal 1 cm deep periventricular left posterior frontal diffusion positive white matter lesion, best shown on axial series 4, image 19. Differential for these above findings could either be related to advanced small vessel ischemic prasad e, watershed ischemia, or demyelinating disease. These findings were discussed with CHRISTIANO Campoverde. POSTERIOR FOSSA: No signal alteration. No hemorrhage. No edema, masses or mass effect. Internal genesis tory canals, cerebello-pontine angles, mastoids normal. DIFFUSION IMAGING: Positive as above ORBITS: No masses. Globes normal. PARANASAL SINUSES: Mucus or serous retention cyst left frontal sinus OTHER: No other significant finding. IMPRESSION: Diffuse chronic white matter disease, with multiple foci of deep periventricular chronic encephalomalacia Diffusion-weighted images are positive for multiple small bifrontal and biparietal deep white matter lesions, with a 1 cm focus of altered diffusion in the left posterior frontal deep periventricular wh ite matter. These could represent multiple infarcts, possibly due to emboli or hypoperfusion. These could also represent multiple foci of demyelinating disease. Findings discussed with the patient's provider EVIDENCE OF ACUTE STROKE: Yes TECHNICAL DOCUMENTATION: JOB ID: [id number] [employer]- All Rights Reserved
[2017-04-01] MEDS: TAMSULOSIN HCL 0.4 MG CAP.SR.24H PO SCH (17:59)
--- NOTE | 2017-04-01 18:35 | RADIOLOGY REPORT (SQ) ---
EXAM DESCRIPTION: CAROTID DOPPLER COMPLETED DATE/TIME: 04/01/2017 5:39 pm REASON FOR STUDY: altered mental status; MRI concerning for emboli COMPARISON: None. TECHNIQUE: Grayscale ultrasound, Doppler velocity and spectra, and color Doppler images acquired of the extra-cranial carotid and vertebral arteries. Images stored on PACS. LIMITATIONS: None. FINDINGS: RIGHT CAROTID CCA Velocities: Within normal limits. ICA Velocities Peak systolic 68cm/s. End diastolic 24cm/s. Proximal ICA/CCA peak systolic ratio 0.7. Spectra normal. No significant plaque. LEFT CAROTID CCA Velocities: Within normal limits. ICA Velocities Peak systolic 83cm/s. End diastolic 32cm/s. Proximal ICA/CCA peak systolic ratio 1.0. Spectra normal. No significant plaque. VERTEBRAL ARTERIES: Antegrade flow. Normal waveforms. SUBCLAVIAN ARTERIES: No finding. OTHER: No other significant finding. IMPRESSION: NO HEMODYNAMICALLY SIGNIFICANT STENOSIS. COMMENT: Quality ID #[id number]: Velocity criteria are extrapolated from the diameter data as defined by t he Society of Radiologists in Ultrasound Consensus Conference. Radiology 2003: 229; 340-346. TECHNICAL DOCUMENTATION: JOB ID: [id number] [employer]- All Rights Reserved
[2017-04-01] MEDS: ATORVASTATIN CALCIUM 10 MG TABLET PO SCH (23:12)
[2017-04-02] MEDS: LANSOPRAZOLE 30 MG TAB.RAP.DR PO SCH (05:16)
[2017-04-02 07:23] LABS: HEMOGLOBIN 8.3 g/dL (13.5-17.0); HGB HCT DIFFERENCE 0.9; MEAN CORPUSCULAR HGB CONC 34.5 g/dL (32.0-36.0); MEAN CORPUSCULAR VOLUME 93 fl (80-97); RED BLOOD COUNT 2.59 10^6/uL (4.35-5.55); WHITE BLOOD COUNT 8.6 10^3/uL (4.0-10.5)
[2017-04-02 07:31] LABS: ANION GAP 13 (5-19); BLOOD UREA NITROGEN 26 mg/dL (7-20); CALCIUM 8.3 mg/dL (8.4-10.2); CARBON DIOXIDE 22 mmol/L (22-30); CHLORIDE 109 mmol/L (98-107); GLUCOSE 90 mg/dL (75-110); POTASSIUM 3.6 mmol/L (3.6-5.0); SODIUM 144.1 mmol/L (137-145)
[2017-04-02] MEDS: ASPIRIN 81 MG TABLET, CHEWABLE PO SCH (11:08)
[2017-04-02] MEDS: CARVEDILOL 3.125 MG TABLET PO SCH ×2 (11:09→21:42)
[2017-04-02] MEDS: APIXABAN 2.5 MG TABLET PO SCH ×2 (11:10→17:48)
--- NOTE | 2017-04-02 13:48 | PROGRESS NOTE E ---
Progress Note NAME: ELISA VIDAL : 1950 AGE: 66Y DATE: 04/02/2017 ROOM: 428 SUBJECTIVE: The patient is lying in bed. The patient apparently had been more responsive with family earlier in the day and had been able to participate in his meals. I had a lengthy family discussion with 6 family members, including daughter and granddaughter. The patient does have a known history of cerebrovascular disease and has suffered with garbled speech for quite some time; however, the patient had not aggressively sought diagnosis to this. Therefore, the patient had not been on any aspirin therapy or so forth. I did explain the findings of numerous previous infarctions on imaging and new imaging which showed recent infarction. The family voiced understanding and was receptive to this. Appropriate therapies have been consulted. The family is aware that there is a bed available to rehab and they do want to aggressively seek this; however, the patient does need to be evaluated from a speech therapy standpoint, particularly given this recent event. Did discuss goals of care with the patient's family. The patient was unable to participate with this discussion. However, the family has elected to proceed with a FULL CODE STATUS and aggressive measures, including a feeding tube if warranted. They are agreeable to palliative care conversation but would like to continue with full code status. REVIEW OF SYSTEMS: A full review of systems cannot be appreciated given the patient's mentation. MEDICATIONS: Medications have been reviewed. OBJECTIVE: GENERAL: The patient is an unfortunate 66-year-old -[place] male that will awaken to noxious stimuli. He does not appear to be distressed. VITAL SIGNS: As follows: Temperature is 98.7, pulse 92, respirations 19, blood pressure 152/77, oxygen saturation is 97% on room air. SKIN: Warm and dry. No rash. He is not diaphoretic. HEENT: Pupils equal, round, and reactive to light and accommodation. Conjunctivae pink. There is no JVP. No overt facial droop. CARDIOVASCULAR: Heart is regular. There is no rub. CHEST: Diminished, symmetrical, unlabored. ABDOMEN: Soft, nontender, nondistended. BACK: No CVA tenderness or sacral edema. EXTREMITIES: No clubbing, cyanosis or edema. PSYCHIATRIC: Unable to fully assess. DIAGNOSTICS: Lab values are as follows. Hematology obtained on 04/02/2017: WBCs are 8.6, hemoglobin is 8.3, hematocrit is 24.0, platelet count is 205,000. Chemistry obtained on 04/02/2017: Sodium is 144, potassium 3.6, chloride is 109, carbon dioxide is 22, BUN 26, creatinine is 1, glucose 90, calcium is 8.3. IMPRESSION AND PLAN: 1. ACUTE CEREBROVASCULAR ACCIDENT. Is a suspicion for embolic etiology; however, the patient has been on appropriate dose Eliquis as well as aspirin therapy and then previous prophylaxis. The patient's repeat echocardiogram is pending. 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 Regardless, will continue aspirin and statin therapy and will have Speech Therapy re-evaluate the patient and follow. 2. ACUTE RENAL FAILURE. This has resolved. The patient is at baseline. 3. METABOLIC ENCEPHALOPATHY. I feel this is most likely a byproduct of the patient's stroke. This may be the patient's new baseline. 4. UNCONTROLLED HYPERTENSION. Will continue the patient's home medications. 5. LEFT HIP FRACTURE. The patient has been cleared for discharge from an orthopedic standpoint. 6. ANEMIA. This is postoperative, overall stable. Will hold off on transfusion until hemoglobin is less than 8. 7. ACUTE ON CHRONIC DIASTOLIC CONGESTIVE HEART FAILURE. The patient appears euvolemic at this point. No further diuresis needed. DISPOSITION: THE PATIENT IS A FULL CODE. Pending the patient's symptomatology and diagnostic findings, will re-evaluate in the a.m. for discharge to rehab. Time spent on this followup, including assessment/plan, physical examination, patient education and extensive family meeting, is 45 minutes. DICTATING PHYSICIAN: ARACELY HWANG NP [id number] PHY#: [id number] [id number] JOB#: [id number] ACCT: [id number] cc: >
--- NOTE | 2017-04-02 17:08 | XCELERA REPORT ---
[address] [address] Transthoracic Echocardiogram Report Name: ELISA VIDAL Age: 66 yrs Gender: Male : 1950 Patient Status: Inpatient Patient Location: [address] [place] [address] Study Date: 04/02/2017 10:39 AM Height: 64 in Weight: 167 lb BSA: 1.8 m2 Procedure: A two-dimensional transthoracic echocardiogram with color flow and Doppler was performed. The study was technically difficult with many images being suboptimal in quality. Reason For Study: altered mental status; MRI concerning for emboli History: altered mental status; / TIA / CVA. Ordering Physician: CHRISTIANO TOMAS Performed By: Rosie Carlton Interpretation Summary There is no obvious cardiac source of embolus noted on this transthoracic echocardiogram. Follow-up with a TASH is suggested if cardiac source is still suspected. The left ventricle is normal in size. There is mild concentric left ventricular hypertrophy. LV EF is > than 60% Left ventricular systolic function is normal. The left ventricular wall motion is normal. There is no thrombus. The right ventricle is not well visualized secondary to technical limitations Right atrium not well visualized secondary to technical limitations The left atrial size is normal. There is no evidence of mitral valve prolapse. There is no mitral valve stenosis. There is no mitral regurgitation noted. There is no aortic valve stenosis There is no LVOT obstruction. No aortic regurgitation is present. There is no tricuspid stenosis. There is a mild amount of tricuspid regurgitation There is mild pulmonary hypertension by echo RVSP is 33 mm of Hg ,with RA mean of 5. There is no pericardial effusion. There is no obvious cardiac source of embolus noted on this transthoracic echocardiogram. Follow-up with a TASH is suggested if cardiac source is still suspected MMode/2D Measurements & Calculations RVDd: 3.1 cm LVIDd: 4.0 cm FS: 36.4 % Ao root diam: 2.6 cm IVSd: 1.3 cm LVIDs: 2.5 cm EDV(Teich): 69.6 ml LVPWd: 1.3 cm ESV(Teich): 23.1 ml Ao root area: 5.4 cm2 EF(Teich): 66.8 % Doppler Measurements & Calculations MV E max hanna: MV dec slope: Ao V2 max: LV V1 max P.0 cm/sec 168.7 cm/sec 7.3 mmHg MV A max hanna: 329.3 cm/sec2 Ao max PG: LV V1 max: 73.9 cm/sec MV dec time: 11.4 mmHg 134.8 cm/sec MV E/A: 0.99 0.22 sec PA V2 max: TR max hanna: 105.4 cm/sec 234.8 cm/sec PA max PG: TR max P.4 mmHg 4.4 mmHg Left Ventricle The left ventricle is normal in size. There is mild concentric left ventricular hypertrophy. LV EF is > than 60%. Left ventricular systolic function is normal. The left ventricular wall motion is normal. There is no thrombus. Right Ventricle The right ventricle is not well visualized secondary to technical limitations. Atria Right atrium not well visualized secondary to technical limitations. The left atrial size is normal. Mitral Valve There is no evidence of mitral valve prolapse. There is no vegetation seen on the mitral valve. There is no mitral valve stenosis. There is no mitral regurgitation noted. Aortic Valve There is no aortic valvular vegetation. There is no aortic valve stenosis. There is no LVOT obstruction. No aortic regurgitation is present. Tricuspid Valve There is no tricuspid stenosis. There is a mild amount of tricuspid regurgitation. There is mild pulmonary hypertension by echo. RVSP is 33 mm of Hg ,with RA mean of 5. Pulmonic Valve The pulmonic valve is not well visualized. Great Vessels The aortic root is normal size. Effusions There is no pericardial effusion. : CHRISTIANO TOMAS > Cleopatra Francis
[2017-04-02] MEDS: TAMSULOSIN HCL 0.4 MG CAP.SR.24H PO SCH (17:49)
[2017-04-02] MEDS: ATORVASTATIN CALCIUM 10 MG TABLET PO SCH (21:42)
--- NOTE | 2017-04-02 23:12 | Progress Note ---
Provider Note Provider Note: Palliative Care consult appreciated. Chart reviewed. Attempted visit with patient/family at 2:10PM 04/02/17. Patient was asleep and records note that he has not been able to communicate with other providers today due to aphasia. He had no family at bedside at time of my visit. WIll attempt to visit later and will try to speak with family. Hopefully patient will regain ability to communicate.
[2017-04-03] MEDS: LANSOPRAZOLE 30 MG TAB.RAP.DR PO SCH (05:35)
[2017-04-03] MEDS ORDERED: ATORVASTATIN CALCIUM 10 MG TABLET PO SCH (09:57)
[2017-04-03] MEDS ORDERED: AMLODIPINE BESYLATE 5 MG TABLET PO SCH (10:00)
[2017-04-03] MEDS: CARVEDILOL 3.125 MG TABLET PO SCH (10:53)
[2017-04-03] MEDS: ASPIRIN 81 MG TABLET, CHEWABLE PO SCH (10:54)
[2017-04-03] MEDS: APIXABAN 2.5 MG TABLET PO SCH ×2 (10:54→17:32)
--- NOTE | 2017-04-03 11:01 | TRANSFER SUMMARY E ---
Transfer Summary NAME: ELISA VIDAL : 1950 AGE: 66Y ADMITTED: 03/24/2017 TRANSFERRED: 04/03/2017 CODE STATUS: FULL CODE. PRIMARY OPERATIVE ORTHOPEDIST: Dr. Brown CONSULTING AUTOMATIC TIRE TESTER: Dr. José CONSULTING CORPORATE RESPONSIBILITY OFFICER: Dr. Walsh CONSULTING RESIDENTIAL FINISH CARPENTER: Dr. Pardo DISCHARGE DIAGNOSES: Includes: 1. Acute cerebrovascular accident. 2. Cerebrovascular disease with evidence of old infarctions. 3. Acute renal failure, which resolved. 4. Metabolic encephalopathy, most likely secondary to number 1, is resolved. 5. Hypertension. 6. Left hip fracture status post ORIF on 03/27/2017. 7. Anemia. 8. Acute on chronic diastolic congestive heart failure, which resolved. DISCHARGE MEDICATIONS: Include: 1. Flomax 0.4 mg p.o. q. evening. 2. Coreg 3.125 mg p.o. q. 12 hours. 3. Lipitor 80 mg p.o. q. hour of sleep x30 tablets. 4. Aspirin 81 mg p.o. daily. 5. Eliquis 2.5 mg p.o. b.i.d. 6. Norvasc 5 mg p.o. daily. 7. Lasix 20 mg p.o. q. a.m. DIET: Heart healthy diet. ACTIVITY: As per rehab standards. DIAGNOSTICS: Lab values are as follows: Hematology obtained on 04/02/2017: WBCs are 8.6, hemoglobin is 8.3, hematocrit is 24.0, platelet count is 205,000. Coagulation obtained on 03/24/2017: PT is 14.2, INR is 1.03. Blood gases obtained on 03/30/2017: PH is 7.34, PCO2 is 40.1, PO2 is 81, bicarb is 21, oxygen saturation is 95%. Chemistry obtained on 04/02/2017: Sodium is 144, potassium 3.6, chloride is 109, carbon dioxide is 22, BUN 26, creatinine is 1, glucose 90. A1C is 5.4, calcium 8.3, bilirubin is 0.7. AST 87, ALT is 64, Alk phos 41. Ammonia is 8.7, total protein 5.7, albumin 3.1. CK 224, CK-MB is 2.59, troponin is 0.012. Triglycerides are 52, cholesterol 148, LDL 84, VLDL is 10, HDL is 50. Urinalysis obtained on 03/24/2017: Color yellow, appearance clear. PH is 6.0, specific gravity is 1.027. Protein 30. Glucose negative, ketones 20, occult blood negative, nitrite negative, bilirubin negative, urobilinogen is negative, leukocyte esterase is negative. WBC 1, RBC 0, epithelial squamous cells less than 1, mucus rare, ascorbic acid is negative. Head CT obtained on 03/24/2017 reveals mild chronic changes of atrophy and microvascular ischemia. No acute process noted. Hip x-ray obtained on 03/24/2017 reveals severe degenerative changes of the left hip, difficult to assess for acute findings. Lower extremity CT scan obtained on 03/24/2017 reveals severe degenerative changes of the left hip, no acute fracture visualized. Chest x-ray obtained on 03/24/2017 reveals no acute radiographic finding of the chest. Pelvis x-ray obtained on 03/27/2017 reveals anchoring screws appear to be dorsal to the left and an 8 bone ostomy along the left proximal femoral greater trochanter without cerclage wires or anchoring hardware. Renal ultrasound obtained on 03/28/2017 is very limited right kidney, does not reveal hydronephrosis. CT of the abdomen and pelvis obtained on 03/29/2017 reveals nonspecific 3 mm right pulmonary nodule, osseous findings. No acute urinary pathology is appreciated. Head CT obtained on 03/29/2017 reveals no gross acute intracranial hemorrhage mass effect or midline shift. Carotid Doppler obtained on 04/01/2017 reveals no hemodynamically significant stenosis. Head MRI obtained on 04/01/2017 reveals diffuse chronic white matter disease with multiple focal of deep periventricular chronic encephalomalacia. Diffusion weighted images are positive for small frontal and parietal deep matter lesions with a 1 cm focus of altered diffusion on the left posterior frontal deep periventricular matter lesions. EKG obtained on 03/24/2017 reveals sinus rhythm. Echocardiogram obtained on 03/25/2017 reveals grade 2 [id number] diastolic dysfunction. EKG obtained on 03/25/2017 reveals sinus rhythm. EKG obtained on 03/27/2017 reveals sinus rhythm. Echocardiogram obtained on 04/02/2017 reveals an EF that is greater than 60% with mild pulmonary hypertension. HISTORY OF PRESENT ILLNESS: The patient is a 66-year-old -[place] male with a past medical history of possible CHF and previous CVA. The patient presented to the emergency department with a chief complaint of inability to bear weight on his left lower extremity. The patient has had a longstanding history of leg length inequality and progressive pain and functional disability secondary to his osteoarthritis of the left hip. The patient was unable to ambulate completely and came to the emergency department for evaluation. Given this finding, the patient was referred to the orthopedist for admission and management, and the hospitalists were consulted for medical management. HOSPITAL COURSE: The patient was admitted to telemetry surgical unit. The patient underwent ORIF on 03/27/2017 after obtaining cardiac clearance. The patient had surgery without issue. However, postoperatively, the patient had significant encephalopathy, which was felt to be due to opiates. With Narcan, symptoms did improve; however, the patient still was noted to have weakness, and given this suspicion, the patient did have repeat imaging, which did reveal acute CVA. It is interesting to note, the patient has been on cardiac monitor technician and the patient has no reported arrhythmia, dysrhythmia, and no evidence of A-fib, A-flutter, which would be congruent with this being a source of embolic disease. Also, the patient since admission was on DVT prophylaxis. Immediately, postoperatively, the patient was started on Xarelto dosage, but given his kidney function, this would equal out to full-dose Xarelto, therefore minimizing the likelihood of having an embolic etiology. During the patient's course, he did have an acute kidney injury and his creatinine trended up to 3.41, suggestive that possibly hyperperfusion could be the source of these multiple area infarctions. The patient was then aggressively hydrated and was seen by Nephrology as well. Renal ultrasound, which was obtained, did not reveal any evidence of hydronephrosis. The patient did have some urinary retention, but nothing overt to suggest this would be a source of acute renal failure. It was felt that the patient may have had hypotension related to ATN as well as the patient being on an ARB and a full dose of Xarelto. The patient did have a renally adjusted Eliquis after that point. [place] the patient may have some urinary retention, which was not severe. The patient just had multiple urinary instances in which he would only urinate about 25 mL of urine. A Davis catheter was placed feeling this may be the source of the patient's renal dysfunction; however, a large amount was not retrieved with the Davis placement. The patient was started on the Flomax in the interim, and a BPH is pending. The patient's Davis will be removed today; however, the patient will be advised to follow up with Urology. At this time, the patient does appear to be back to his baseline. His speech has been garbled for a period of time, which is most likely a previous undiagnosed cerebrovascular accident. The patient has been seen and evaluated by Speech Therapy, and the patient has been recommended rehab. PHYSICAL EXAMINATION: GENERAL: On examination, the patient is a frail, chronically ill-appearing 66-year-old -[place] male who is awake, alert. He is oriented, does not appear to be distressed. VITAL SIGNS: Temperature is 98.8, pulse 87, respirations 17, blood pressure is 156/95, oxygen saturation is 98% on room air. SKIN: Warm and dry. No rash. Not diaphoretic. HEENT: Pupils equal, round, and reactive to light and accommodation. Conjunctiva is pink. The patient does have somewhat of a facial droop. CARDIOVASCULAR SYSTEM: Heart is regular. There is no murmur or rub. CHEST: Clear, symmetrical, unlabored. ABDOMEN: Soft, nontender, nondistended. BACK: No CVA tenderness or sacral edema. EXTREMITIES: No clubbing, cyanosis, edema. PSYCHIATRIC: The patient is appropriate. GENITOURINARY: Davis is draining clear yellow urine. This will be discontinued. DISCHARGE PLANNIN. The patient is to follow up with Yandel Renner on 02/07/2017 at 1345. 2. The patient is to follow up with primary care provider within 1-2 weeks for hospital followup. 3. The patient is advised to follow up with Urology given his issues with urinary retention and most likely BPH. Time spent on this discharge including assessment, plan, physical examination, patient education, review of records is 40 minutes. DICTATING PHYSICIAN: ARACELY HWANG NP [id number] PHY#: [id number] ID: [id number] JOB#: [id number] ACCT: [id number] cc:ARACELY HWANG NP > [facility]
[2017-04-03 16:16] VITALS: BP 150/85
[2017-04-03] MEDS: TAMSULOSIN HCL 0.4 MG CAP.SR.24H PO SCH (17:32)
== END 2017-04-03 18:18 | DRG 469 ==
LOC: ER 11:15 → EH 15:03 → 4S 16:41
PROVIDERS: ADMIT Orthopaedic Surgery; ATTEND Orthopaedic Surgery
PROC: 0SRB0JA Replacement of Left Hip Joint with Synthetic Substitute, Uncemented, Open Approach (ICD-10-PCS; principal; 2017-03-27 07:30)
DX: M16.12 Unilateral primary osteoarthritis, left hip (principal); I50.33 Acute on chronic diastolic (congestive) heart failure; G93.41 Metabolic encephalopathy; I63.442 Cerebral infarction due to embolism of left cerebellar artery; N17.0 Acute kidney failure with tubular necrosis; D62 Acute posthemorrhagic anemia; R47.01 Aphasia; I11.0 Hypertensive heart disease with heart failure; R33.9 Retention of urine, unspecified; Z79.899 Other long term (current) drug therapy; Z79.02 Long term (current) use of antithrombotics/antiplatelets; Z87.891 Personal history of nicotine dependence; Z91.19 Patient's noncompliance with other medical treatment and regimen
CPT/HCPCS: 01214; 36415; 36600; 70450; 70551; 71010; 72170; 73522; 74176; 76775; 80048; 80053; 80061; 80076; 81001; 82140; 82550; 82553; 82803; 82962; 83036; 83880; 84153; 84484; 85025; 85027; 85610; 85652; 85730; 86140; 88304; 88311; 90686; 93005; 93010; 93306; 93880; 94799; 99285; C1713; C9290; G8978-GP; G8979-GP; G8987-GO; G8988-GO; J0131; J1741; J2250; J2270; J2310; J2405; J2704; J3010; J3370; J3490; J7030; J7050; J7060; L4386

== ENCOUNTER → 2017-12-25 | Outpatient (CLI) | payer MEDICARE ==
[2017-12-25 13:15] LABS: ANION GAP 10 (5-19); BLOOD UREA NITROGEN 31 mg/dL (7-20); CALCIUM 8.4 mg/dL (8.4-10.2); CARBON DIOXIDE 28 mmol/L (22-30); CHLORIDE 106 mmol/L (98-107); GLUCOSE 102 mg/dL (75-110); POTASSIUM 3.7 mmol/L (3.6-5.0); SODIUM 144.1 mmol/L (137-145)
== END ==
LOC: PNR 12:06
PROVIDERS: ATTEND Internal Medicine
DX: I11.0 Hypertensive heart disease with heart failure (principal); I50.9 Heart failure, unspecified
CPT/HCPCS: 80048